=== PATIENT | male | born 1935 | race Caucasian/White ===

== ENCOUNTER 2017-06-06 23:46 | Emergency (ER) | payer MEDICARE ==
[~2017-06-06] VITALS: Ht 160 cm; Wt 93.0 kg
[~2017-06-06 23:46] MED LIST: ALBUTEROL1.25 MG/1 INH; AMLODIPINE10 MG PO; ASPIRIN 81MG TA81 MG PO; BED XX; FUROSEMIDE40 MG PO; IPRATROPIUM 2.2.5 ML INH; ISOPTIN SR180 MG PO; ISOSORBIDE MONO30 MG PO; LASIX 20MG. TAB20 MG PO; LEVAQUIN500 MG PO; LISINOPRIL 20MG20 MG PO; METOPROLOL TAR100 MG PO; NEBULIZER XX; OMNICEF 300 MG300 MG PO; PRAVASTATIN 20M20 MG PO; PREDNISONE 10MG10 MG PO; PREDNISONE 20MG20 MG PO; WARFARIN SOD5 M1 PO; ZITHROMAX Z-PA250 M2 PO
[2017-06-07 00:18] LABS: LYMPH # 1.3 K/mm3 (0.7-4.5); LYMPH % 22.2 % (10-50)
[2017-06-07 00:21] LABS: HEMOGLOBIN 12.1 g/dL (14.1-18.0)
--- NOTE | 2017-06-07 02:40 | Emergency Room Report ---
History of Present Illness Time Seen by MD Sharif9 Presenting Problem in Triage Pt arrived:Wheelchair Presentin.g Problem:PATIENT REPORTS MIDSTERNAL CHEST PAIN. NONRADIATING. HOME HEALTH NURSE TOOK HIM OFF WARFARIN THURSDAY. HE IS SUPPOSED TO F/U THURSDAY. 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 N Clinical Suspician of Infection? N Mental Status: 1 - Regular (Normal Baseline) Sepsis Risk:Low Sepsis Risk Have you (or family members/close friends) recently traveled outside the [place]? N If Yes, where/when: Have you had exposure to infectious disease within the past month? TB? Other? Specify: Comment The patient is brought in by family. They report that he was complaining of pain in the area of his xiphoid this evening. Initially thought it was chest pain, but now he seems to the indicating that it was more in his epigastric area of his abdomen, although now his pain is completely gone. No shortness of breath, fever, vomiting, or diaphoresis. He did complain of back pain, also now completely resolved. He has Alzheimer's dementia. Recently taken off Coumadin because his blood was 210, to be started on Zaroxolyn on Thursday. ALLERGIES Coded Allergies: No Known Allergies (11/20/15) Home Medications Active Scripts Device (Bed, Hospital) 1 UNIT XX UD #1 DEV Prov: 02/10/17 Device (Nebulizer, Compressor) 1 UNIT XX UD #1 DEV Prov: 02/10/17 ALBUTEROL SULFATE (Accuneb) 1.25 MG INH TID #90 NEB Ref 2 Prov: 02/10/17 Ipratropium [place] (Ipratropium 0.5MG Neb Soln) 0.5 MG INH TID #90 NEB Ref 1 Prov: 02/10/17 Levofloxacin (Levaquin 500MG) 500 MG PO DAILY #7 TAB Prov: 04/19/17 Reported Medications Metoprolol Tartrate (Metoprolol 100MG) 100 MG PO BID Amlodipine Besylate (Amlodipine) 10 MG PO DAILY Isosorbide Mononitrate (Isosorbide Mononitrate ER) 30 MG PO DAILY History Medical History General CAD? No Angina: No NV: No Hypertension? Yes Hyperlipidemia? Yes CHF? Yes DVT? No PE? No COPD? No Asthma? No Anemia? No GERD? No Gastric ulcers? No GI Bleed? No Hernia? No Thyroid Problems? No Hypothyroidism? No CVA? Yes Seizures? No Diabetes? No Renal Insuffiency? No End Stage Renal Disease? No UTI? No Stones? No BPH? No GB Disease: No Nephritic Syndrome? No Asplenia? No Hepatitis? No Sickle Cell Disease? No Arthritis? No Migraines? No Cataracts? No Glaucoma? No MRSA? No HIV? No TB? No Anxiety? No Depression? No Cancer? Yes Site: PROSTATE More? Yes Additional hx: ATRIAL FIB, DEMENTIA Immunization Hx DT/Tetanus Unknown Flu Refused Pneumonia Excluded/Contraindicated Surgical Hx Previous Surgery?Y PROSTATECTOMY Family History Family Hx Diabetes No CAD No Hypertension Yes Hyperlipidemia No Cancer Yes TB No Social History Smoking Hx Smoker: Never Smoker Tobacco: No Type Chew Alcohol Alcohol: No Review of Systems All Other Systems Reviewed and Negative Constitutional denies diaphoresis, denies fever Respiratory denies cough, denies shortness of breath Cardiovascular chest pain Gastrointestinal abdominal pain, denies diarrhea, denies nausea, denies vomiting Musculoskeletal back pain Physical Exam Vital Signs Vital Signs Date Time Temp Pulse Resp B/P Pulse O2 O2 Flow FiO2 Ox Delivery Rate 06/07 0337 84 20 103/72 97 / 0217 81 20 112/71 94 / 0057 81 20 137/82 96 /05 2348 97.8 68 20 138/58 96 General Appearance normal appearance, WD/WN Eye Exam - bilateral eye normal exam, bilateral eye PERRL, bilateral eye EOMI Ear, Nose, Throat hearing grossly normal, normal ENT inspection Neck normal inspection, non-tender, supple, full range of motion Respiratory Status Yes: trachea midline, chest symmetrical, non tender chest. No: respiratory distress. Lung Sounds bilateral: normal breath sounds, lungs clear. 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 No Results/Orders Laboratory Tests 06/07/17 0301: Troponin I 0.03 06/06/172358: Amylase 55, Lipase 267 06/06/172358: Sodium 139, Potassium 3.1 L, Chloride 103, Carbon Dioxide 29, BUN 12, Creatinine 1.3, Estimated Creat Clear 59, Estimated GFR (MDRD) 53, Glucose 134 H, Calcium 8.3 L, Total Bilirubin 0.4, AST 18, ALT 16, Alkaline Phosphatase 91, Creatine Kinase 34 L, CK-MB (CK-2) Rel Index 1.5, CK and CKMB Interp 0.5, Troponin I 0.03, Total Protein 7.4, Albumin 2.7 L, Globulin 4.7 H, Albumin/ Globulin Ratio 0.6 L, WBC 6.0, RBC 3.99 L, Hgb 12.1 L, Hct 37.6 L, MCV 94.2, RDW 15.2, Plt Count 244, MPV 7.5, Gran % 63.8, Gran # 3.8, Lymphocytes % 22.2, Monocytes % 7.0, Eosinophils % 6.2, Basophils % 0.8, Lymphocytes # 1.3, Monocytes # 0.4, Eosinophils # 0.4, Basophils # 0.1, PUBS MCHC 32.3, MCH 30.4 Current Medication Orders Sig/Joseph Start time Last Medication Dose Route Stop Time Status Admin Aspirin 0 .STK-MED ONE 06/06 2358 DC .ROUTE Aspirin 324 MG ONCE ONE 06/06 2345 DC 06/06 PO 06/06 2346 2358 Sodium Chloride 10 ML PRN PRN 06/06 2345 AC 06/06 IV 06/07 235 2359 Orders Procedure Date/time Status TROPONIN I 06/07 0253 Complete LIPASE 06/07 025 Complete AMYLASE 06/07 252 Complete CHEST-PORTABLE 06/07 0245 Active ELECTROCARDIOGRAM REQUEST 06/06 2355 Active IV SALINE LOCK 06/06 2355 Active CBC WITH AUTO DIFF 06/06 2355 Complete CARDIAC ENZYMES 08/05 2355 Complete CHEM 12 PROFILE 06/06 235 Complete 12 LEAD EKG-NEGRO (INITIAL) 06/06 UNK Active CM/EKG CM/EKG Comments EKG interpreted by Héctor Hodges MD: Rhythm: Atrial fibrillation, premature ventricular contractions versus aberrantly conducted beats Rate: 74 [place]: LEFT Ectopy: none Conduction: RIGHT bundle branch block ST Segment Changes: none T Wave Changes: none Q Waves: none No evidence of acute ischemia or injury No change from prior electrocardiogram XRAY/CT/US XRAY/CT/US XRAY chest Comment Chest x-ray interpreted by Héctor Hodges M.D. No infiltrate, pneumothorax, pleural effusion, or wide mediastinum. Progress - 3:49 AM: Remains asymptomatic. He is getting belligerent and wants to be discharged, family wants him discharged. Second troponin normal. I feel he can be discharged for outpatient follow-up. Departure Departure Disposition DC Home or Self Care(routine) Clinical Impression Primary Impression: Chest pain Qualifiers: Chest pain type: precordial pain Qualified Code: R07.2 - Precordial pain Secondary Impressions: Epigastric pain Condition STABLE Referrals Negro MARKS,Nestor Rowan (Family) Patient Instructions DI for Abdominal Pain-Adult, DI for Chest Pain Additional Instructions Follow-up with primary care physician for possible gallbladder ultrasound. Additional instructions for ABDOMINAL PAIN/CHEST PAIN: See your physician as soon as possible for further evaluation. Return immediately if worsening abdominal pain, vomiting, shortness of breath, fever, vomiting of blood, chest pain, coughing of blood. or abdominal distention. ED Critical Care Critical Care No at [id number]
[2017-06-07 03:56] VITALS: BP 103/72
--- NOTE | 2017-06-07 12:15 | RADIOLOGY REPORT PS360 ---
CHEST-PORTABLE HISTORY: cpchest pain. Patient Age: 81 years: Male Ordering Physician: Héctor Hodges MD TECHNIQUE: COMPARISON : 04/17/2017 CXR 2 view. FINDINGS Right lung well expanded and clear. Left chest. On the most recent April 17, 2017 chest film there was a prominent was left pleural effusion. This is for the most part cleared with only some minimal residual pleural thickening I believe evident. Likely some minimal pleural parenchymal scarring. No definitive infiltrate or large effusion felt to be present here.. However with given history may want to consider a follow-up 2 view chest or to better evaluate the left lung base. CT chest from February 2016 showed some thickening of the airways particularly towards the left lower lobe. Upper lung willis are mildly hyperexpanded and clear.. Cardiomegaly with isauro and mediastinal structures satisfactory. No CHF. No vascular congestion. Chest wall unremarkable on this portable study IMPRESSION The generous left pleural effusion seen and April 2017 has shown resolution. Only some I suspect minimal pleural-parenchymal scarring at left base but . . Nothing definitely acute. no focal pneumonia
--- OUTSIDE RECORDS SUMMARY | 2017-06-08 15:58 | External Medical Summary Rpt ---
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
--- OUTSIDE RECORDS SUMMARY | 2017-06-08 15:58 | External Medical Summary Rpt ---
Demographics Preferred Language Yi Marital Status Unknown Hinduism Affiliation Unknown Race Unknown Ethnic Group Unknown Author Author , MCKENNA ANDRES Address Unknown Phone [email or web address] Immunization Name Date Rout CVX Reac Dose Comm Prov Is Faci e tion ent ider Refu lity Give sed n Td 03-0 9 999 Hist H149 No H149 (servando 919 [facility] lt), 97 al Info adso rmat rbed ion - Sour ce Unsp ecif ied
--- OUTSIDE RECORDS SUMMARY | 2017-06-08 15:58 | External Medical Summary Rpt ---
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
--- OUTSIDE RECORDS SUMMARY | 2017-06-08 15:58 | External Medical Summary Rpt ---
Demographics Preferred Language Yoruba Marital Status Unknown Taoism Affiliation Unknown Race Unknown Ethnic Group Unknown Author Author , MCKENNA ANDRES Address Unknown Phone [email or web address] Immunization Name Date Rout CVX Reac Dose Comm Prov Is Faci e tion ent ider Refu lity Give sed n Td 03-0 9 999 Hist H149 No H149 (servando 919 [facility] lt), 97 al Info adso rmat rbed ion - Sour ce Unsp ecif ied
== END 2017-06-07 03:56 | disposition home or self-care (01) ==
LOC: ER 23:46
PROVIDERS: Emergency Medicine
DX: R07.2 Precordial pain (principal); R10.13 Epigastric pain; I48.0 Paroxysmal atrial fibrillation; I10 Essential (primary) hypertension

== ENCOUNTER 2017-07-15 12:55 | Emergency (ER) | payer MEDICARE ==
[~2017-07-15] VITALS: Ht 167.6 cm; Wt 99.8 kg
--- NOTE | 2017-07-15 13:40 | Emergency Room Report ---
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 N Clinical Suspician of Infection? N Mental Status: 1 - Regular (Normal Baseline) Sepsis Risk:Low Sepsis Risk Have you (or family members/close friends) recently traveled outside the [place]? N If Yes, where/when: Have you had exposure to infectious disease within the past month? N TB? Other? Specify: Comment The patient arrives by ambulance with several complaints. He fell a couple of weeks ago and scraped his nose. He had a scab there which she picked off this morning at about 11 AM and it began bleeding and he was unable to get it stopped at home. He is on Xarelto. Home health care nurse was present on the scene. Family also states that the home health care nurse was concerned about his lungs. He has a productive cough and his oxygen level was low at home. He is already on antibiotics. They want somebody to listen to his lungs. He also has decreased urinary output. Family states that he has dementia and does not do well in the hospital and would prefer for him to be discharged. Family wants him to have some IV antibiotics while he is here. ALLERGIES Coded Allergies: No Known Allergies (11/20/15) Home Medications Active Scripts Device (Bed, Hospital) 1 UNIT XX UD #1 DEV Prov: 02/10/17 Device (Nebulizer, Compressor) 1 UNIT XX UD #1 DEV Prov: 02/10/17 ALBUTEROL SULFATE (Accuneb) 1.25 MG INH TID #90 NEB Ref 2 Prov: 02/10/17 Ipratropium [place] (Ipratropium 0.5MG Neb Soln) 0.5 MG INH TID #90 NEB Ref 1 Prov: 02/10/17 Levofloxacin (Levaquin 500MG) 500 MG PO DAILY #7 TAB Prov: 04/19/17 Reported Medications Metoprolol Tartrate (Metoprolol 100MG) 100 MG PO BID Amlodipine Besylate (Amlodipine) 10 MG PO DAILY Isosorbide Mononitrate (Isosorbide Mononitrate ER) 30 MG PO DAILY History Medical History General CAD? No Angina: No MT: No Hypertension? Yes Hyperlipidemia? Yes CHF? Yes DVT? No PE? No COPD? No Asthma? No Anemia? No GERD? No Gastric ulcers? No GI Bleed? No Hernia? No Thyroid Problems? No Hypothyroidism? No CVA? Yes Seizures? No Diabetes? No Renal Insuffiency? No End Stage Renal Disease? No UTI? No Stones? No BPH? No GB Disease: No Nephritic Syndrome? No Asplenia? No Hepatitis? No Sickle Cell Disease? No Arthritis? No Migraines? No Cataracts? No Glaucoma? No MRSA? No HIV? No TB? No Anxiety? No Depression? No Cancer? Yes Site: PROSTATE More? Yes Additional hx: ATRIAL FIB, DEMENTIA, ALZHEIMERS Immunization Hx DT/Tetanus Unknown Flu Refused Pneumonia Excluded/Contraindicated Surgical Hx Previous Surgery?Y PROSTATECTOMY Family History Family Hx Diabetes No CAD No Hypertension Yes Hyperlipidemia No Cancer Yes TB No Social History Smoking Hx Smoker: Never Smoker Tobacco: No Alcohol Alcohol: No Review of Systems All Other Systems Reviewed and Negative Constitutional denies fever Respiratory see HPI, cough Genitourinary see HPI. Skin see HPI Physical Exam Vital Signs Vital Signs Date Time Temp Pulse Resp B/P Pulse O2 O2 Flow FiO2 Ox Delivery Rate 07/15 1616 98.4 98 18 132/88 96 07/15 1525 98 18 96 07/15 1419 88 18 128/70 96 2 07/15 1347 88 18 119/69 96 07/15 1256 98.4 87 18 96 2 General Appearance no apparent distress Eye Exam - bilateral eye normal exam, bilateral eye PERRL, bilateral eye EOMI Ear, Nose, Throat 1 cm diameter superficial ulcer on the bridge of his nose with a small pulsatile bleeding vessel on the surface. Neck normal inspection, non-tender, supple, full range of motion Respiratory Status Yes: trachea midline, chest symmetrical, productive cough. No: respiratory distress. Lung Sounds bilateral: normal breath sounds, lungs clear. Cardiovascular normal exam, regular rate/rhythm, no peripheral edema, no gallop, no JVD, no murmur, no rub, normal peripheral pulses Peripheral Pulses Pulses normal Yes Gastrointestinal normal bowel sounds, normal exam, non tender, soft, no organomegaly Extremities non-tender, normal range of motion, normal inspection Neurologic alert, can operator II-XII nml as tested, normal exam, no motor/sensory deficits, dementia Mental status normal mood/affect Skin intact, normal color, warm/dry Medical Decision Making LABS/Meds/Orders Pt receiving controlled substance in ED? No Results/Orders Laboratory Tests 07/15/17 1453: Lactic Acid 1.6 07/15/17 1453: Sodium 143, Potassium 3.3 L, Chloride 104, Carbon Dioxide 31, BUN 14, Creatinine 1.2, Estimated Creat Clear 67, Estimated GFR (MDRD) 58, Glucose 103, Calcium 8.5, Total Bilirubin 0.8, AST 16, ALT 13, Alkaline Phosphatase 109, Creatine Kinase 25 L, CK-MB (CK-2) Rel Index 2.0, CK and CKMB Interp < 0.5, Troponin I 0.06, Total Protein 8.5 H, Albumin 3.4, Globulin 5.1 H, Albumin/ Globulin Ratio 0.7 L, WBC 7.5, RBC 4.84, Hgb 14.6, Hct 45.7, MCV 94.3, RDW 16.0 , Plt Count 282, MPV 8.3, Gran % 62.7, Gran # 4.7, Lymphocytes % 22.9, Monocytes % 8.1, Eosinophils % 5.5, Basophils % 0.7, Lymphocytes # 1.7, Monocytes # 0.6, Eosinophils # 0.4, Basophils # 0.1, PUBS MCHC 31.5 L, MCH 29.8 Current Medication Orders Sig/Joseph Start time Last Medication Dose Route Stop Time Status Admin Levofloxacin/Dextrose 100 ML ONCE ONE 07/15 1545 DCDr 07/15 IV 07/15 1644 1538 Levofloxacin/Dextrose 100 ML .STK-MED ONE 07/15 1538 DC IV Lidocaine/Epinephrine 10 ML ONCE ONE 07/15 1430 DC SC 07/15 1431 Sodium Chloride 10 ML PRN PRN 07/15 1430 DCD IV 07/16 1427 Lidocaine/Epinephrine 0 .STK-MED ONE 07/15 1427 DC .ROUTE Orders Procedure Date/time Status ELECTROCARDIOGRAM REQUEST 07/15 142 Active IV SALINE LOCK 07/15 1428 Active CULTURE, SPUTUM 07/15 1428 Complete CULTURE, BLOOD 07/15 1428 Active URINALYSIS/COMPLETE 07/15 1428 Active LACTIC ACID 07/15 1428 Complete CBC WITH AUTO DIFF 07/15 1428 Complete CARDIAC ENZYMES 07/15 1428 Complete CHEM 12 PROFILE 07/15 1428 Complete 12 LEAD EKG-ELIZABETH (INITIAL) 07/15 UNK Active XRAY/CT/US XRAY/CT/US XRAY chest Comment X-ray interpreted by Lyndsay Yu M.D.: chronic RIGHT basilar scar versus atelectasis. Minimal LEFT basilar airspace disease, likely atelectasis. Procedures Laceration/Wound Repair Progress Skin suture for hemostasis Performed by: LYNDSAY YU Consent: Verbal consent obtained. Risks and benefits: risks, benefits and alternatives were discussed Consent given by: patient Patient identity confirmed: verbally with patient Local anesthetic: 1 percent lidocaine with epinephrine Wound prep: Sterilly scrubbed with Hibiclens and irrigated with copious normal saline. Draping: Sterile in usual manner Suture material, skin: 5-0 Vicryl Number of sutures: 1. A single [id number] suture placed to obtain hemostasis from the small bleeding blood vessel. Hemostasis obtained after placement. Patient tolerance: Patient tolerated the procedure well with no immediate complications Departure Departure Disposition DC Home or Self Care(routine) Clinical Impression Primary Impression: Hemorrhage of skin lesion Secondary Impressions: Acute bronchitis Qualifiers: Bronchitis organism: unspecified organism Qualified Code: J20.9 - Acute bronchitis, unspecified Condition STABLE Patient Instructions DI for Acute Bronchitis Additional Instructions Suture will dissolve on its own. Return to the emergency room if excessive bleeding occurs again. Complete sure antibiotics as prescribed by Dr. Tom and follow-up with him next week. ED Critical Care Critical Care No at [id number]
[2017-07-15 15:09] LABS: LYMPH # 1.7 K/mm3 (0.7-4.5); LYMPH % 22.9 % (10-50)
[2017-07-15 15:19] LABS: HEMOGLOBIN 14.6 g/dL (14.1-18.0)
[2017-07-15 15:32] LABS: BUN 14 mg/dL (7-18); GFR (ESTIMATED) 58 ML/MIN (>60)
--- NOTE | 2017-07-15 15:34 | RADIOLOGY REPORT PS360 ---
CHEST-PORTABLE HISTORY: cough ORDERING PHYSICIAN: Héctor Hodges MD PATIENT AGE: 82 years COMPARISON: 06/07/2017 FINDINGS: There is borderline cardiomegaly without failure. Chronic changes are present in the left lower lobe. The remaining lungs are clear. No acute bony anomalies. Osteoarthritic changes are present at the AC joints. IMPRESSION: Chronic change, no acute finding
[2017-07-15 16:16] VITALS: BP 132/88
== END 2017-07-15 16:17 | disposition home or self-care (01) ==
LOC: ER 12:55
PROVIDERS: Emergency Medicine
PROC: 09QKXZZ Repair Nasal Mucosa and Soft Tissue, External Approach (ICD-10-PCS; principal; 2017-07-15)
DX: R58 Hemorrhage, not elsewhere classified (principal); J20.9 Acute bronchitis, unspecified; I11.0 Hypertensive heart disease with heart failure; I50.9 Heart failure, unspecified; I48.91 Unspecified atrial fibrillation; G30.9 Alzheimer's disease, unspecified; F02.80 Dementia in other diseases classified elsewhere, unspecified severity, without behavioral disturbance, psychotic disturbance, mood disturbance, and anxiety; L98.499 Non-pressure chronic ulcer of skin of other sites with unspecified severity; Z91.81 History of falling; Z79.01 Long term (current) use of anticoagulants; Z79.899 Other long term (current) drug therapy

== ENCOUNTER 2017-09-02 23:39 | Inpatient (IN) | payer MEDICARE ==
[~2017-09-02] VITALS: Ht 167.6 cm; Wt 77.2 kg
[2017-09-02 23:45] VITALS: BP 126/82
[2017-09-02] MEDS ORDERED: FUROSEMIDE40 MG PO (23:56)
[2017-09-02] MEDS ORDERED: PRAVASTATIN 20M20 MG PO (23:57)
[2017-09-02] MEDS ORDERED: XARELTO15 MG PO (23:57)
[2017-09-02] MEDS ORDERED: MELATONIN1 M2 SL (23:58)
[2017-09-03] VITALS (8 sets, daily range): BP systolic 122–160; BP diastolic 63–87
--- OUTSIDE RECORDS SUMMARY | 2017-09-03 00:05 | External Medical Summary Rpt | Continuity of Care Document ---
Author Author Organization Address Unknown Phone Unavailable Care Team Providers Care Memory Care Program Director Name Role Phone , Unavailable Unavailable EMS Current Medications Section EMS Allergies and Adverse Reactions EMS Past Medical History Medications Administered Section EMS Procedures Performed EMS Vital Signs EMS Patient Care Report Narrative Dispatched to residence for 82 year male that has picked a scab and will not stop bleeding, pt is on blood thinners, home health has been on scene and been holding pressure for about 30 minutes and wont stop bleeding. Upon arrival pt was sitting on stool in kitchen, nurse was holding 4x4 with pressure on his nose, when switching 4x4 Pt appeared to have scratched off scab and dug his fingernail into his nose making it deeper, bleeding had not slowed, pt has a severe case of dementia, pt also has been on antibiotics since last Thursday for bilateral rhonchi and cough, today his sats were at 88% pt appears to be getting worse possible pneumonia,pt was able to walk to stretcher with assistance , nurse kept pressure applied. Pt was secured to stretcher with straps,moved to EC unit, vitals obtained and placed on monitor while medic held pressure, pt vitals were all normal sats were at 87%, pt was placed on NC, then EMT took over and held pressure while Assembler Leather Goods did ALS assessment, pt gets easily agitated with his dementia, was able to get his jacket off, 20g IV established in LAC with NS, blood sugat 126. Pt was getting agitated did not want 4x4 held to his nose, kept trying to push Assembler [employer]ather [employer]s away, threatening to hit her if she didnt stop, unable to do full assessment, pt would not cooperate, wanted to fight you with anything you tried. Pt was monitored and reassessed, pressure remained on pts nose, changing multiple 4x4s, bleeding has not slowed, pt was combative enroute did not want 4x4 on his nose, pressure was continued, kept continuing to calm pt, no change in vitals , sats came up to 96%,pt report was called to ER, upon arrival at ER staff waited outside to assist with pt , pt was moved into ER , taken to bed 2, pt was moved with bottom sheet to bed,care turned over and report was given to Payam Sim RN. Kaye Shields CCEMT-P
--- OUTSIDE RECORDS SUMMARY | 2017-09-03 00:05 | External Medical Summary Rpt | Continuity of Care Document ---
Author Author Organization Address Unknown Phone Unavailable Care Team Providers Care First Leveler Name Role Phone , Unavailable Unavailable EMS [...] EMT took over and held pressure while Solid Plasterer did ALS assessment, pt gets easily agitated with his dementia, was able to get his jacket off, 20g IV established in LAC with NS, blood sugat 126. Pt was getting agitated did not want 4x4 held to his nose, kept trying to push Solid Plasterer away, threatening to hit her if she [...]
--- OUTSIDE RECORDS SUMMARY | 2017-09-03 00:06 | External Medical Summary Rpt | Continuity of Care Document ---
Author Author Organization Address Unknown Phone Unavailable Care Team Providers Care Bomb Loader Name Role Phone , Unavailable Unavailable EMS Current Medications Section EMS Allergies and Adverse Reactions EMS Past Medical History Medications Administered Section EMS Procedures Performed EMS Vital Signs EMS Patient Care Report Narrative D: EC-[address] [place] [address] Rd per mutual aid request from [facility] EMS for a 82 year old male unresponsive and barely breathing. C: Unresponsive. H: Dementia, Prostate Cancer, Bronchitis, A-Fib. A: Pt presented sitting in a chair being assessed by [facility] and Medic 1. Pt is responsive to verbal stimuli and is confused when speaking. ABC assessed: Airway is patent. Breathing: Adequate rate and depth, quality being supported by Portable O2 at 4-lpm via NC. Circulation: Pulse is regular, skin is pale cool and diaphoretic. Physical assessment: Pt unable to talk in coherent sentences, unable to obtain stroke scale, pupils are equal and reactive, lung sounds reveal wheezing in all willis (Pt recently diagnosed with bronchitis and taking antibiotics), general weakness to entire body and unable to stand. Unable to obtain pain scale. Family stated that they found the pt slumped backwards in the chair barely breathing and call 911. R: 12-lead EKG, 18g IV x2, LR fluid bolus, O2 therapy. T: Pt picked up out of chair x3, placed on cot in position of comfort, secured by safety belts x5 and placed into the ambulance. 12-lead EKG shows A-Fib with RVR, 18g IV established in left AC with LR fluid bolus administered. Pt transported and monitored. NC switched for CO2 NC for monitoring, pt's dropped and 2nd 18g IV established in the right forearm. Reassessment: Once pt's BP became 105 systolic the pt became alert and oriented (still slightly confused do to dementia), skin returned to being pink, warm, and dry. Pt was able to speak and answer questions appropriately within the limits of his dementia. Pt moved from cot to CT Scan table (Per ER doctor request as a precaution). Verbal report and pt care given to attending RN and Doctor. N: Pt transported by ambulance after becoming unresponsive while sitting in a chair.
--- OUTSIDE RECORDS SUMMARY | 2017-09-03 00:06 | External Medical Summary Rpt | Continuity of Care Document ---
Author Author Organization Address Unknown Phone Unavailable Care Team Providers Care Seo Analyst Name Role Phone , Unavailable Unavailable EMS Current Medications Section EMS Allergies and Adverse Reactions EMS Past Medical History Medications Administered Section EMS Procedures Performed EMS Vital Signs EMS Patient Care Report Narrative D: EC-5 dispatched to [address] [place] [address] Rd per mutual aid request from [facility] EMS for a 82 year old male [...]
--- OUTSIDE RECORDS SUMMARY | 2017-09-03 00:06 | External Medical Summary Rpt | Continuity of Care Document ---
Author Author Organization Address Unknown Phone Unavailable Care Team Providers Care Environmental Inspector Name Role Phone , Unavailable Unavailable EMS Current Medications Section EMS Allergies and Adverse Reactions EMS Past Medical History Medications Administered Section EMS Procedures Performed EMS Vital Signs EMS Patient Care Report Narrative D: EC-5 dispatched to [address] [place] [address] Rd per mutual aid request from [facility] EMS for a 82 year old [...]
--- OUTSIDE RECORDS SUMMARY | 2017-09-03 00:06 | External Medical Summary Rpt | Continuity of Care Document ---
Author Author Organization Address Unknown Phone Unavailable Care Team Providers Care Hourly Associate Name Role Phone , Unavailable Unavailable EMS Current Medications Section EMS Allergies and Adverse Reactions EMS Past Medical History Medications Administered Section EMS Procedures Performed EMS Vital Signs EMS Patient Care Report Narrative D: EC-5 dispatched to [address] [place] [address] Rd per mutual aid request from [facility] EMS for a 82 year old [...]
--- OUTSIDE RECORDS SUMMARY | 2017-09-03 00:06 | External Medical Summary Rpt | Continuity of Care Document ---
Author Author Organization Address Unknown Phone Unavailable Care Team Providers Care Grease Rack Worker Name Role Phone , Unavailable Unavailable EMS Current Medications Section EMS Allergies and Adverse Reactions EMS Past Medical History Medications Administered Section EMS Procedures Performed EMS Vital Signs EMS Patient Care Report Narrative D: EC-5 dispatched to [address] [place] [address] Rd per mutual aid request from [facility] EMS for a 82 year old male [...]
--- OUTSIDE RECORDS SUMMARY | 2017-09-03 00:06 | External Medical Summary Rpt | Continuity of Care Document ---
Author Author Organization Address Unknown Phone Unavailable Care Team Providers Care Billing Analyst Name Role Phone , Unavailable Unavailable EMS Current Medications Section EMS Allergies and Adverse Reactions EMS Past Medical History Medications Administered Section EMS Procedures Performed EMS Vital Signs EMS Patient Care Report Narrative D: EC-5 dispatched to [address] [place] [address] Rd per mutual aid request from [facility] EMS for a 82 year [...]
--- OUTSIDE RECORDS SUMMARY | 2017-09-03 00:06 | External Medical Summary Rpt | Continuity of Care Document ---
Author Author Organization Address Unknown Phone Unavailable Care Team Providers Care Barrel Rifler Hook Name Role Phone , Unavailable Unavailable EMS Current Medications Section EMS Allergies and Adverse Reactions EMS Past Medical History Medications Administered Section EMS Procedures Performed EMS Vital Signs EMS Patient Care Report Narrative D: EC-5 dispatched to [address] [place] [address] Rd per mutual aid request from [facility] EMS for a 82 year old [...]
--- OUTSIDE RECORDS SUMMARY | 2017-09-03 00:06 | External Medical Summary Rpt | Continuity of Care Document ---
Author Author Organization Address Unknown Phone Unavailable Care Team Providers Care Work Force Advisor Name Role Phone , Unavailable Unavailable EMS Current Medications Section EMS Allergies and Adverse Reactions EMS Past Medical History Medications Administered Section EMS Procedures Performed EMS Vital Signs EMS Patient Care Report Narrative D: EC-5 dispatched to [address] [place] [address] Rd per mutual aid request from [facility] EMS for a 82 year old male [...]
--- OUTSIDE RECORDS SUMMARY | 2017-09-03 00:07 | External Medical Summary Rpt | Continuity of Care Document ---
Author Author Organization Address Unknown Phone Unavailable Care Team Providers Care Spudder Name Role Phone , Unavailable Unavailable EMS Current Medications Section EMS Allergies and Adverse Reactions EMS Past Medical History Medications Administered Section EMS Procedures Performed EMS Vital Signs EMS Patient Care Report Narrative D: EC-5 dispatched to [address] [place] [address] Rd per mutual aid request from [facility] EMS for a 82 year [...]
--- OUTSIDE RECORDS SUMMARY | 2017-09-03 00:07 | External Medical Summary Rpt | Continuity of Care Document ---
Author Author Organization Address Unknown Phone Unavailable Care Team Providers Care Production Lead Name Role Phone , Unavailable Unavailable EMS Current Medications Section EMS Allergies and Adverse Reactions EMS Past Medical History Medications Administered Section EMS Procedures Performed EMS Vital Signs EMS Patient Care Report Narrative 911 call district 3 for code 500. Ec-1 responded due to the call actually being in District 1. Medic 1 along with [facility] fire responded and found pt in passenger seat of car, Family had been in route to meet ems and he flagged us down on [address], Family tells ems that pt was drinking coffee and stood up from the table and appeared to have stopped breathing. Family did mouth to mouth and attempted chest compressions and pt regained alertness quickly .Pt was able to place himself on to ems cot and safety straps were applied. Pt had no c/c with ems. He has prior HX of A-fib,Dementia,Alzheimers, Stroke. Pt had been seen a few weeks ago at for pneumonia and has not been able to fully recover from recurring pneumonia issues. Pt had audible wheezing, and rhonchi in upper lobes. He was placed on 4lpm via n/c and end tidal was 33-35. Albuterol neb was given in route with pt trying to have a productive cough. Est 20g saline lock in rt ac. Bgl was 155. 12 lead showed A-fib. Cont to monitor in route with no changes noted. Pt was transported emergent due to getting restless and upset and sometimes becoming verbally abusive to ems. Upon arrival at er pt was able to move himself over to ems cot. TRANSPORTED THIS PT DUE TO CHRONIC ILLNESS OF PNUEMONIA AND HAVING DYSPNEA THIS DATE
--- OUTSIDE RECORDS SUMMARY | 2017-09-03 00:07 | External Medical Summary Rpt | Continuity of Care Document ---
Author Author Organization Address Unknown Phone Unavailable Care Team Providers Care Cosmetology Educator Name Role Phone , Unavailable Unavailable EMS Current Medications Section EMS Allergies and Adverse Reactions EMS Past Medical History Medications Administered Section EMS Procedures Performed EMS Vital Signs EMS Patient Care Report Narrative 911 call district 3 for code 500. Ec-1 responded due to the call actually being in District 1. Medic 1 along with [facility] fire responded and found pt in passenger [...]
--- OUTSIDE RECORDS SUMMARY | 2017-09-03 00:07 | External Medical Summary Rpt | Continuity of Care Document ---
Author Author Organization Address Unknown Phone Unavailable Care Team Providers Care Surgical Scrub Technician Name Role Phone , Unavailable Unavailable EMS Current Medications Section EMS Allergies and Adverse Reactions EMS Past Medical History Medications Administered Section EMS Procedures Performed EMS Vital Signs EMS Patient Care Report Narrative 911 call district 3 for code 500. Ec-1 responded due to the call actually being in District 1. Medic 1 along with [facility] fire responded and found pt in passenger seat of car, Family had been in route to meet ems and he flagged us down on [address], Family tells ems that pt was [...]
--- OUTSIDE RECORDS SUMMARY | 2017-09-03 00:07 | External Medical Summary Rpt | Continuity of Care Document ---
Author Author Organization Address Unknown Phone Unavailable Care Team Providers Care Limehouse Worker Name Role Phone , Unavailable Unavailable EMS Current Medications Section EMS Allergies and Adverse Reactions EMS Past Medical History Medications Administered Section EMS Procedures Performed EMS Vital Signs EMS Patient Care Report Narrative 911 call district 3 for code 500. Ec-1 responded due to the call actually being in District 1. Medic 1 along with [facility] fire responded and found pt in passenger [...]
--- OUTSIDE RECORDS SUMMARY | 2017-09-03 00:07 | External Medical Summary Rpt | Continuity of Care Document ---
Author Author Organization Address Unknown Phone Unavailable Care Team Providers Care Communications Engineering Technician Name Role Phone , Unavailable Unavailable EMS Current Medications Section EMS Allergies and Adverse Reactions EMS Past Medical History Medications Administered Section EMS Procedures Performed EMS Vital Signs EMS Patient Care Report Narrative D: EC-5 dispatched to [address] [place] [address] Rd per mutual aid request from [facility] EMS for a 82 year old male [...]
--- OUTSIDE RECORDS SUMMARY | 2017-09-03 00:08 | External Medical Summary Rpt | Continuity of Care Document ---
Author Author Organization Address Unknown Phone Unavailable Care Team Providers Care Dairy Bar Manager Name Role Phone , Unavailable Unavailable EMS Current Medications Section EMS Allergies and Adverse Reactions EMS Past Medical History Medications Administered Section EMS Procedures Performed EMS Vital Signs EMS Patient Care Report Narrative 911 call district 3 for code 500. Ec-1 responded due to the call actually being in District 1. Medic 1 along with [facility] fire responded and found pt in passenger [...]
--- OUTSIDE RECORDS SUMMARY | 2017-09-03 00:08 | External Medical Summary Rpt | Continuity of Care Document ---
Author Author Organization Address Unknown Phone Unavailable Care Team Providers Care Addiction Social Worker Name Role Phone , Unavailable Unavailable EMS Current Medications Section EMS Allergies and Adverse Reactions EMS Past Medical History Medications Administered Section EMS Procedures Performed EMS Vital Signs EMS Patient Care Report Narrative 911 call district 3 for code 500. Ec-1 responded due to the call actually being in District 1. Medic 1 along with [facility] fire responded and found pt in passenger [...]
--- OUTSIDE RECORDS SUMMARY | 2017-09-03 00:08 | External Medical Summary Rpt | Continuity of Care Document ---
Author Author Organization Address Unknown Phone Unavailable Care Team Providers Care Drill Sharpener Operator Name Role Phone , Unavailable Unavailable EMS Current Medications Section EMS Allergies and Adverse Reactions EMS Past Medical History Medications Administered Section EMS Procedures Performed EMS Vital Signs EMS Patient Care Report Narrative 911 call district 3 for code 500. Ec-1 responded due to the call actually being in District 1. Medic 1 along with [facility] fire responded and found pt in passenger [...]
--- OUTSIDE RECORDS SUMMARY | 2017-09-03 00:08 | External Medical Summary Rpt | Continuity of Care Document ---
Author Author Organization Address Unknown Phone Unavailable Care Team Providers Care School Fundraising Director Name Role Phone , Unavailable Unavailable EMS Current Medications Section EMS Allergies and Adverse Reactions EMS Past Medical History Medications Administered Section EMS Procedures Performed EMS Vital Signs EMS Patient Care Report Narrative 911 call district 3 for code 500. Ec-1 responded due to the call actually being in District 1. Medic 1 along with [facility] fire responded and found pt [...]
[2017-09-03 00:10] LABS: LYMPH # 0.9 K/mm3 (0.7-4.5); LYMPH % 8.4 % (10-50)
--- OUTSIDE RECORDS SUMMARY | 2017-09-03 00:11 | External Medical Summary Rpt | CCD ---
Author Author , MCKENNA ANDRES Address Unknown Phone [email or web address] Purpose Continuity of Care Document - 04-17-2017 through 2016 Problems Code Diagnosis DOS Provider Status 401.9 E86.0 DEHYDRATION I48.91 UNSPECIFIED ATRIAL FIBRILLATIO N J18.9 PNEUMONIA, UNSPECIFIED ORGANISM J20.9 ACUTE BRONCHITIS, UNSPECIFIED R06.00 DYSPNEA, UNSPECIFIED R06.02 SHORTNESS OF BREATH R07.9 CHEST PAIN, UNSPECIFIED R10.13 EPIGASTRIC PAIN R23.3 SPONTANEOUS ECCHYMOSES R42 DIZZINESS AND GIDDINESS R55 SYNCOPE AND COLLAPSE R79.1 ABNORMAL COAGULATION PROFILE S00.83XA CONTUSION OF OTHER PART OF HEAD, INITIAL ENCOUNTER Z79.899 OTHER SENIOR CARE (CURRENT) DRUG THERAPY Results Labs Lab Lab Date Result Refere Interp Status Commen Order Detail nces retati t Range on Basic metabolic panel (08-26-2017 07:45) Serum 10-25-2 = 140 136-145 complet sodium 017 mmoL/L ed measure 07:45 ment Serum 10-25-2 = 2.7 3.5-5.1 complet potassi 017 mmoL/L ed um 07:45 measure ment Serum 10-25-2 = 100 74-106 complet or 017 mg/dL ed plasma 07:45 glucose measure ment (mas Estimat 10-25-2 = 53 >60 complet ed 017 ML/MIN ed glomeru 07:45 lar filtrat ion rate (GF Serum 10-25-2 = 1.3 0.70-1. complet or 017 mg/dL 30 ed plasma 07:45 creatin ine measure ment ( Carbon 10-25-2 = 35 21.0-32 complet dioxide 017 mmoL/L .0 ed 07:45 measure ment Serum 10-25-2 = 102 98-107 complet or 017 mmoL/L ed plasma 07:45 chlorid e measure ment (mo Serum 10-25-2 = 8.2 8.5-10. complet or 017 mg/dL 1 ed plasma 07:45 calcium measure ment (mas Serum = 24 7-18 complet or 017 mg/dL ed plasma 07:45 urea nitroge n measure men CBC w auto diff (08-26-2017 07:45) Red 08-26- = 4.42 4.6-6.2 complet blood 017 M/mm3 ed cell 07:45 count Blood = 149 142-424 complet platele 017 K/mm3 ed t count 07:45 Automat = 9.5 7.4-10. complet ed 017 fl 4 ed blood 07:45 platele t mean volume serenity Collin % = 8.9 % 1.7-9.3 complet 017 ed 07:45 Absolut = 0.7 0.1-1.0 complet e 017 K/mm3 ed monocyt 07:45 e count Blood = 7.3 4.8-10. complet leukocy 017 K/MM3 8 ed rosalia 07:45 count (number /volume ) Automat = 14.9 11.5-17 complet ed 017 % .5 ed erythro 07:45 cyte distrib ution width Automat = 93.3 82.2-97 complet ed 017 fl .8 ed erythro 07:45 cyte mean corpusc ular v Automat = 32.3 31.8-35 complet ed 017 g/dl .4 ed erythro 07:45 cyte mean corpusc ular h Mean = 30.1 27-31.2 complet corpusc 017 pg ed ular 07:45 hemoglo bin (MCH) determ Lymphoc = 10.1 10-50 complet yte 017 % ed count, 07:45 blood, automat ed Absolut = 0.7 0.7-4.5 complet e 017 K/mm3 ed lymphoc 07:45 yte count Blood = 13.3 14.1-18 complet hemoglo 017 g/dL .0 ed bin 07:45 measure ment (mass/v olum Blood = 41.3 42.0-52 complet hematoc 017 % .0 ed rit 07:45 (volume fractio n) Granulo = 72.5 37.0-80 complet cyte 017 % .0 ed percent 07:45 age Blood = 5.3 1.3-8.0 complet granulo 017 K/mm3 ed cytes 07:45 automat ed count (numb Automat = 7.9 % 0.1-12. complet ed 017 0 ed blood 07:45 eosinop hils/10 0 leukocy t Automat = 0.6 0.0-0.4 complet ed 017 K/mm3 ed blood 07:45 eosinop hil count Baso % = 0.5 % 0.1-2.0 complet 017 ed 07:45 Automat = 0.0 0-0.2 complet ed 017 K/MM3 ed blood 07:45 basophi l count (count/ vo Comp Metab 1997 Pnl SerPl (08-19-2017 04:19) Anion 8.0 3.0-11. complet Gap3 017 mmol/L 0 ed SerPl-s 04:19 Cnc BUN/Cre 10.0 7.0-25. complet at 017 0 ed SerPl 04:19 Albumin 1.0 1.5-2.5 complet /Glob 017 g/dL ed SerPl 04:19 Globuli 3.8 complet n Ur 017 gm/dL ed Elph-mC 04:19 nc GFR/BSA 81 >60 complet .pred 017 mL/min/ ed SerPl 04:19 1.73 MDRD-Ar VRat Bilirub 0.6 0.3-1.2 complet 017 mg/dL ed SerPl-m 04:19 Cnc ALP 08-19- 80 U/L 25-100 complet SerPl-c 017 ed Cnc 04:19 AST 08-19- 21 U/L 0-33 complet SerPl-c 017 ed Cnc 04:19 ALT 08-19- 15 U/L 7-40 complet SerPl w 017 ed 04:19 P-5'-P- cCnc Albumin 3.70 3.20-4. complet 017 g/dL 80 ed SerPl-m 04:19 Cnc Prot 10-18-2 7.5 5.7-8.2 complet SerPl-m 017 g/dL ed Cnc 04:19 Calcium 10-18-2 8.8 8.7-10. complet 017 mg/dL 4 ed XXX-sCn 04:19 c CO2 18-2 28.0 20.0-31 complet SerPl-s 017 mmol/L .0 ed Cnc 04:19 Chlorid 1018-2 105 99-109 complet e 017 mmol/L ed SerPl-s 04:19 Cnc Potassi 18-2 3.6 3.5-5.5 complet um 017 mmol/L ed Bld-sCn 04:19 c Sodium 1018-2 141 132-146 complet Bld-sCn 017 mmol/L ed c 04:19 Creat -18-2 0.90 0.60-1. complet Bld-mCn 017 mg/dL 30 ed c 04:19 BUN 18-2 9 mg/dL 9-23 complet Bld-mCn 017 ed c 04:19 Glucose 18-2 179 70-100 complet 017 mg/dL ed Bld-mCn 04:19 c CBC W Diff pnl,unspecified Bld (08-19-2017 04:19) Lymphoc 18-2 9.9 % 24.0-44 complet ytes/le 017 .0 ed NFr 04:19 Bld Auto Neutrop 08-19-2 88.9 % 41.0-71 complet hils/le 017 .0 ed NFr 04:19 Bld Auto Platele 08-19-2 195 150-450 complet t # Bld 017 10*3/mm ed Auto 04:19 3 PMV Bld 18-2 11.4 fL 6.0-12. complet Auto 017 0 ed 04:19 RDW RBC 18-2 53.2 fl 37.0-54 complet Auto 017 .0 ed 04:19 RDW RBC 18-2 15.4 % 11.3-14 complet 017 .5 ed Auto-Rt 04:19 o MCHC 18-2 31.6 32.0-36 complet RBC 017 g/dL .0 ed Auto-mC 04:19 nc MCH RBC 18-2 29.9 pg 27.0-31 complet Qn 017 .0 ed Auto 04:19 MCV RBC 10-18-2 94.7 fL 80.0-99 complet Auto 017 .0 ed 04:19 Hct VFr 10-18-2 43.1 % 38.9-50 complet Bld 017 .9 ed Auto 04:19 Hgb 10-18-2 13.6 13.1-17 complet Bld-mCn 017 g/dL .5 ed c 04:19 RBC # 10-18-2 4.55 4.20-5. complet Bld 017 10*6/mm 76 ed Auto 04:19 3 WBC 10-18-2 3.43 3.50-10 complet nRBC 017 10*3/mm .80 ed cor # 04:19 3 Bld Imm 10-18-2 0.01 0.00-0. complet Granulo 017 10*3/mm 03 ed cytes # 04:19 3 Bld Basophi 10-18-2 0.00 0.00-0. complet ls # 017 10*3/mm 20 ed Bld 04:19 3 Auto Eosinop 10-18-2 0.00 0.00-0. complet hil # 017 10*3/mm 30 ed Bld 04:19 3 Auto Monocyt 10-18-2 0.03 0.00-1. complet es # 017 10*3/mm 00 ed Bld 04:19 3 Auto Lymphoc 10-18-2 0.34 0.60-4. complet ytes # 017 10*3/mm 80 ed Bld 04:19 3 Auto Neutrop 10-18-2 3.05 1.50-8. complet hils # 017 10*3/mm 30 ed Bld 04:19 3 Auto Imm 10-18-2 0.3 % 0.0-0.6 complet Granulo 017 ed cytes/l 04:19 euk NFr Bld Basophi 10-18-2 0.0 % 0.0-1.0 complet ls/leuk 017 ed NFr 04:19 Bld Auto Eosinop 10-18-2 0.0 % 0.0-3.0 complet hil/luke 017 ed k NFr 04:19 Bld Auto Monocyt 10-18-2 0.9 % 0.0-12. complet es/leuk 017 0 ed NFr 04:19 Bld Auto Mg Ionized SerPl-mCnc (08-18-2017 14:25) Magnesi 1.9 1.3-2.7 complet um 017 mg/dL ed SerPl-m 14:25 Cnc Troponin T SerPl Ql (08-18-2017 12:28) Troponi 0.04 0.00-0. complet n I 017 ng/mL 07 ed SerPl-m 12:28 Cnc Troponin T SerPl Ql (08-18-2017 10:18) Troponi 0.05 0.00-0. complet n I 017 ng/mL 07 ed SerPl-m 10:18 Cnc BNP SerPl-mCnc (08-18-2017 10:17) BNP 269.0 0.0-100 complet SerPl-m 017 pg/mL .0 ed Cnc 10:17 Comp Metab 1998 Pnl SerPl (08-18-2017 10:17) Albumin 1.0 1.5-2.5 complet /Glob 017 g/dL ed SerPl 10:17 Anion 11.0 3.0-11. complet Gap3 017 mmol/L 0 ed SerPl-s 10:17 Cnc BUN/Cre 12.0 7.0-25. complet at 017 0 ed SerPl 10:17 Globuli 4.2 complet n Ur 017 gm/dL ed Elph-mC 10:17 nc GFR/BSA 72 >60 complet .pred 017 mL/min/ ed SerPl 10:17 1.73 MDRD-Ar VRat Bilirub 0.7 0.3-1.2 complet 017 mg/dL ed SerPl-m 10:17 Cnc ALP 96 U/L 25-100 complet SerPl-c 017 ed Cnc 10:17 AST 27 U/L 0-33 complet SerPl-c 017 ed Cnc 10:17 ALT 14 U/L 7-40 complet SerPl w 017 ed 10:17 P-5'-P- cCnc Albumin 4.20 3.20-4. complet 017 g/dL 80 ed SerPl-m 10:17 Cnc Prot 8.4 5.7-8.2 complet SerPl-m 017 g/dL ed Cnc 10:17 Calcium 9.4 8.7-10. complet 017 mg/dL 4 ed XXX-sCn 10:17 c CO2 33.0 20.0-31 complet SerPl-s 017 mmol/L .0 ed Cnc 10:17 Chlorid 99 99-109 complet e 017 mmol/L ed SerPl-s 10:17 Cnc Potassi 3.2 3.5-5.5 complet um 017 mmol/L ed Bld-sCn 10:17 c Sodium 143 132-146 complet Bld-sCn 017 mmol/L ed c 10:17 Creat 1.00 0.60-1. complet Bld-mCn 017 mg/dL 30 ed c 10:17 BUN 12 9-23 complet Bld-mCn 017 mg/dL ed c 10:17 Glucose 107 70-100 complet 017 mg/dL ed Bld-mCn 10:17 c Lactate SerPl-sCnc (08-18-2017 10:17) D-Lacta 1.6 0.5-2.0 complet te 017 mmol/L ed SerPl-s 10:17 Cnc CBC W Diff pnl,unspecified Bld (08-18-2017 10:17) Imm 08-18- 0.01 0.00-0. complet Granulo 017 10*3/mm 03 ed cytes # 10:17 3 Bld Basophi 2 0.04 0.00-0. complet ls # 017 10*3/mm 20 ed Bld 10:17 3 Auto Eosinop 0.45 0.00-0. complet hil # 017 10*3/mm 30 ed Bld 10:17 3 Auto Monocyt 08-18-2 0.46 0.00-1. complet es # 017 10*3/mm 00 ed Bld 10:17 3 Auto Lymphoc 0.91 0.60-4. complet ytes # 017 10*3/mm 80 ed Bld 10:17 3 Auto Neutrop 08-18-2 4.90 1.50-8. complet hils # 017 10*3/mm 30 ed Bld 10:17 3 Auto Imm 08-18- 0.1 % 0.0-0.6 complet Granulo 017 ed cytes/l 10:17 euk NFr Bld Eosinop 08-18- 6.6 % 0.0-3.0 complet hil/luke 017 ed k NFr 10:17 Bld Auto Monocyt 6.8 % 0.0-12. complet es/leuk 017 0 ed NFr 10:17 Bld Auto Lymphoc 13.4 % 24.0-44 complet ytes/le 017 .0 ed uk NFr 10:17 Bld Auto Neutrop 72.5 % 41.0-71 complet hils/le 017 .0 ed uk NFr 10:17 Bld Auto Platele 202 150-450 complet t # Bld 017 10*3/mm ed Auto 10:17 3 PMV Bld 11.2 fL 6.0-12. complet Auto 017 0 ed 10:17 RDW RBC 54.2 fl 37.0-54 complet Auto 017 .0 ed 10:17 RDW RBC 08-18- 15.4 % 11.3-14 complet 017 .5 ed Auto-Rt 10:17 o MCHC 08-18- 32.5 32.0-36 complet RBC 017 g/dL .0 ed Auto-mC 10:17 nc MCH RBC 08-18- 31.0 pg 27.0-31 complet Qn 017 .0 ed Auto 10:17 MCV RBC 08-18-2 95.5 fL 80.0-99 complet Auto 017 .0 ed 10:17 Hct VFr 08-18-2 49.3 % 38.9-50 complet Bld 017 .9 ed Auto 10:17 Hgb 08-18-2 16.0 13.1-17 complet Bld-mCn 017 g/dL .5 ed c 10:17 RBC # 1017-2 5.16 4.20-5. complet Bld 017 10*6/mm 76 ed Auto 10:17 3 WBC 08-18-2 6.77 3.50-10 complet nRBC 017 10*3/mm .80 ed cor # 10:17 3 Bld Basophi 0.6 % 0.0-1.0 complet ls/leuk 017 ed NFr 10:17 Bld Auto CK SerPl-cCnc (08-18-2017 10:17) CK 64 U/L 26-174 complet SerPl-c 017 ed Cnc 10:17 Potassium SerPl-sCnc (07-21-2017 18:47) Potassi 3.7 3.5-5.5 complet um 017 mmol/L ed Bld-sCn 18:47 c Bas Metab 2000 Pnl SerPl (07-21-2017 05:26) Anion 7.0 3.0-11. complet Gap3 017 mmol/L 0 ed SerPl-s 05:26 Cnc BUN/Cre 10.0 7.0-25. complet at 017 0 ed SerPl 05:26 GFR/BSA 93 >60 complet .pred 017 mL/min/ ed SerPl 05:26 1.73 MDRD-Ar VRat Calcium 8.5 8.7-10. complet 017 mg/dL 4 ed XXX-sCn 05:26 c CO2 28.0 20.0-31 complet SerPl-s 017 mmol/L .0 ed Cnc 05:26 Chlorid 104 99-109 complet e 017 mmol/L ed SerPl-s 05:26 Cnc Potassi 2.8 3.5-5.5 complet um 017 mmol/L ed Bld-sCn 05:26 c Sodium 139 132-146 complet Bld-sCn 017 mmol/L ed c 05:26 Creat 0.80 0.60-1. complet Bld-mCn 017 mg/dL 30 ed c 05:26 BUN 8 mg/dL 9-23 complet Bld-mCn 017 ed c 05:26 Glucose 89 70-100 complet 017 mg/dL ed Bld-mCn 05:26 c CBC W Diff pnl,unspecified Bld (07-21-2017 05:26) Imm 09-19-2 0.02 0.00-0. complet Granulo 017 10*3/mm 03 ed cytes # 05:26 3 Bld Basophi 09-19-2 0.03 0.00-0. complet ls # 017 10*3/mm 20 ed Bld 05:26 3 Auto Eosinop 09-19-2 0.62 0.00-0. complet hil # 017 10*3/mm 30 ed Bld 05:26 3 Auto Monocyt 09-19-2 0.90 0.00-1. complet es # 017 10*3/mm 00 ed Bld 05:26 3 Auto Lymphoc 09-19-2 1.63 0.60-4. complet ytes # 017 10*3/mm 80 ed Bld 05:26 3 Auto Neutrop 09-19-2 4.08 1.50-8. complet hils # 017 10*3/mm 30 ed Bld 05:26 3 Auto Imm 09-19-2 0.3 % 0.0-0.6 complet Granulo 017 ed cytes/l 05:26 euk NFr Bld Basophi -19-2 0.4 % 0.0-1.0 complet ls/leuk 017 ed NFr 05:26 Bld Auto Eosinop 09-19-2 8.5 % 0.0-3.0 complet hil/luke 017 ed k NFr 05:26 Bld Auto Monocyt 09-19-2 12.4 % 0.0-12. complet es/leuk 017 0 ed NFr 05:26 Bld Auto Lymphoc 09-19-2 22.4 % 24.0-44 complet ytes/le 017 .0 ed uk NFr 05:26 Bld Auto Neutrop 09-19-2 56.0 % 41.0-71 complet hils/le 017 .0 ed uk NFr 05:26 Bld Auto Platele 09-19-2 203 150-450 complet t # Bld 017 10*3/mm ed Auto 05:26 3 PMV Bld -19-2 11.0 fL 6.0-12. complet Auto 017 0 ed 05:26 RDW RBC 09-19-2 57.4 fl 37.0-54 complet Auto 017 .0 ed 05:26 RDW RBC 09-19-2 16.8 % 11.3-14 complet 017 .5 ed Auto-Rt 05:26 o MCHC 32.4 32.0-36 complet RBC 017 g/dL .0 ed Auto-mC 05:26 nc MCH RBC 30.2 pg 27.0-31 complet Qn 017 .0 ed Auto 05:26 MCV RBC 93.2 fL 80.0-99 complet Auto 017 .0 ed 05:26 Hct VFr 35.8 % 38.9-50 complet Bld 017 .9 ed Auto 05:26 Hgb 2 11.6 13.1-17 complet Bld-mCn 017 g/dL .5 ed c 05:26 RBC # 07-21-2 3.84 4.20-5. complet Bld 017 10*6/mm 76 ed Auto 05:26 3 WBC 07-21- 7.28 3.50-10 complet nRBC 017 10*3/mm .80 ed cor # 05:26 3 Bld Potassium SerPl-sCnc (07-20-2017 08:53) Potassi 3.8 3.5-5.5 complet um 017 mmol/L ed Bld-sCn 08:53 c BNP SerPl-mCnc (07-20-2017 05:34) BNP 240.0 0.0-100 complet SerPl-m 017 pg/mL .0 ed Cnc 05:34 Hgb A1c Bld (07-20-2017 05:34) Hgb A1c 5.00 % 4.80-5. complet MFr 017 60 ed Bld 05:34 Bas Metab 2000 Pnl SerPl (07-20-2017 05:34) BUN 11 9-23 complet Bld-mCn 017 mg/dL ed c 05:34 Glucose 88 70-100 complet 017 mg/dL ed Bld-mCn 05:34 c Anion 4.0 3.0-11. complet Gap3 017 mmol/L 0 ed SerPl-s 05:34 Cnc BUN/Cre 12.2 7.0-25. complet at 017 0 ed SerPl 05:34 GFR/BSA 81 >60 complet .pred 017 mL/min/ ed SerPl 05:34 1.73 MDRD-Ar VRat Calcium 18-2 8.3 8.7-10. complet 017 mg/dL 4 ed XXX-sCn 05:34 c CO2 18-2 31.0 20.0-31 complet SerPl-s 017 mmol/L .0 ed Cnc 05:34 Chlorid 18-2 104 99-109 complet e 017 mmol/L ed SerPl-s 05:34 Cnc Potassi 18-2 3.3 3.5-5.5 complet um 017 mmol/L ed Bld-sCn 05:34 c Sodium 18-2 139 132-146 complet Bld-sCn 017 mmol/L ed c 05:34 Creat 18-2 0.90 0.60-1. complet Bld-mCn 017 mg/dL 30 ed c 05:34 CBC (hemogram) Bld Auto (07-20-2017 05:34) Platele 18-2 219 150-450 complet t # Bld 017 10*3/mm ed Auto 05:34 3 PMV Bld 18-2 11.5 fL 6.0-12. complet Auto 017 0 ed 05:34 RDW RBC 18-2 57.8 fl 37.0-54 complet Auto 017 .0 ed 05:34 RDW RBC 18-2 16.9 % 11.3-14 complet 017 .5 ed Auto-Rt 05:34 o MCHC -18-2 32.4 32.0-36 complet RBC 017 g/dL .0 ed Auto-mC 05:34 nc MCH RBC 18-2 30.1 pg 27.0-31 complet Qn 017 .0 ed Auto 05:34 MCV RBC 18-2 93.0 fL 80.0-99 complet Auto 017 .0 ed 05:34 Hct VFr 18-2 34.3 % 38.9-50 complet Bld 017 .9 ed Auto 05:34 Hgb -18-2 11.1 13.1-17 complet Bld-mCn 017 g/dL .5 ed c 05:34 RBC # -18-2 3.69 4.20-5. complet Bld 017 10*6/mm 76 ed Auto 05:34 3 WBC -18-2 9.74 3.50-10 complet nRBC 017 10*3/mm .80 ed cor # 05:34 3 Bld UA Dipstick Pnl Ur (07-19-2017 19:34) Urobili 1.0 0.2 - complet nogen 017 E.U./dL 1.0 ed Ur Ql 19:34 E.U./dL Strip Nitrite [id number] Negativ complet Ur Ql 017 09 e ed Strip 19:34 Negativ e SCT Leukocy [id number] Negativ complet te 017 09 e ed esteras 19:34 Negativ e Ur Ql e SCT Strip.a uto Prot Ur [id number] Negativ complet Ql 017 09 e ed Strip 19:34 Negativ e SCT Hgb Ur [id number] Negativ complet Ql 017 09 e ed Strip.a 19:34 Negativ uto e SCT Bilirub [id number] Negativ complet Ur Ql 017 09 e ed Strip 19:34 Negativ e SCT Ketones [id number] Negativ complet Ur Ql 017 09 e ed Strip 19:34 Negativ e SCT Glucose [id number] Negativ complet Ur 017 06 e ed Strip-m 19:34 Trace Cnc SCT Sp Gr 1.012 1.001-1 complet Ur 017 .030 ed Strip 19:34 pH Ur 5.5 5.0-8.0 complet Strip.a 017 ed uto 19:34 Clarity [id number] Clear complet Ur 017 01 ed 19:34 Clear SCT Color [id number] Yellow, complet Ur 017 09 Straw ed 19:34 Yellow color SCT Gas Pnl BldA (07-19-2017 19:05) CO2 31.5 22-33 complet BldA-sC 017 ed nc 19:05 COHgb 1.7 % 0-2 complet MFr Bld 017 ed 19:05 MetHgb 0.90 % 0.00-1. complet Bld Ql 017 50 ed 19:05 OxyHgb 91.5 % 94-99 complet MFr 017 ed BldV 19:05 Hct VFr 37.8 % complet Bld 017 ed 19:05 Hgb 12.3 13.5-17 complet BldA-mC 017 g/dL .5 ed nc 19:05 SaO2 % 91.5 % complet BldCoA 017 ed 19:05 Base 6.2 0.0-2.0 complet excess 017 mmol/L ed BldA 19:05 Calc-sC nc HCO3 30.3 20.0-26 complet BldA-sC 017 mmol/L .0 ed nc 19:05 pO2 63.7 mm 83.0-10 complet BldA 017 Hg 8.0 ed 19:05 pCO2 40.6 mm 35.0-48 complet BldA 017 Hg .0 ed 19:05 pH BldA 7.481 7.350-7 complet 017 pH .450 ed 19:05 units Arteria [id number] complet l 017 09 Not ed patency 19:05 applica Wrist ble SCT a Bdy Arteria complet site 017 l: left ed 19:05 radial Horowit 28 % complet z index 017 ed 19:05 Bld+IhG -Rto Bacteria Bld Cult (07-19-2017 18:50) Bacteri No active a XXX 017 growth Aerobe 18:50 at 3 Cult days Bacteria Bld Cult (07-19-2017 18:50) Bacteri No complet a XXX 017 growth ed Aerobe 18:50 at 5 Cult days Lactate SerPl-sCnc (07-19-2017 18:50) D-Lacta 1.7 0.5-2.0 complet te 017 mmol/L ed SerPl-s 18:50 Cnc Troponin T SerPl Ql (07-19-2017 18:13) Troponi 0.03 0.00-0. complet n I 017 ng/mL 07 ed SerPl-m 18:13 Cnc Bacteria Bld Cult (07-19-2017 17:55) Bacteri No active a XXX 017 growth Aerobe 17:55 at 3 Cult days Bacteria Bld Cult (07-19-2017 17:55) Bacteri No complet a XXX 017 growth ed Aerobe 17:55 at 5 Cult days CBC W Diff pnl,unspecified Bld (07-19-2017 17:55) Imm 07-19- 0.03 0.00-0. complet Granulo 017 10*3/mm 03 ed cytes # 17:55 3 Bld Basophi 0.03 0.00-0. complet ls # 017 10*3/mm 20 ed Bld 17:55 3 Auto Eosinop 0.15 0.00-0. complet hil # 017 10*3/mm 30 ed Bld 17:55 3 Auto Monocyt 1.33 0.00-1. complet es # 017 10*3/mm 00 ed Bld 17:55 3 Auto Lymphoc 0.74 0.60-4. complet ytes # 017 10*3/mm 80 ed Bld 17:55 3 Auto Neutrop 12.01 1.50-8. complet hils # 017 10*3/mm 30 ed Bld 17:55 3 Auto Imm 0.2 % 0.0-0.6 complet Granulo 017 ed cytes/l 17:55 euk NFr Bld Basophi 0.2 % 0.0-1.0 complet ls/leuk 017 ed NFr 17:55 Bld Auto Eosinop 1.0 % 0.0-3.0 complet hil/luke 017 ed k NFr 17:55 Bld Auto Monocyt 9.3 % 0.0-12. complet es/leuk 017 0 ed NFr 17:55 Bld Auto Lymphoc 5.2 % 24.0-44 complet ytes/le 017 .0 ed uk NFr 17:55 Bld Auto Neutrop 84.1 % 41.0-71 complet hils/le 017 .0 ed uk NFr 17:55 Bld Auto Platele 218 150-450 complet t # Bld 017 10*3/mm ed Auto 17:55 3 PMV Bld 10.7 fL 6.0-12. complet Auto 017 0 ed 17:55 RDW RBC 57.4 fl 37.0-54 complet Auto 017 .0 ed 17:55 RDW RBC 16.7 % 11.3-14 complet 017 .5 ed Auto-Rt 17:55 o MCHC 31.9 32.0-36 complet RBC 017 g/dL .0 ed Auto-mC 17:55 nc MCH RBC 29.8 pg 27.0-31 complet Qn 017 .0 ed Auto 17:55 MCV RBC 93.5 fL 80.0-99 complet Auto 017 .0 ed 17:55 Hct VFr 40.5 % 38.9-50 complet Bld 017 .9 ed Auto 17:55 Hgb 12.9 13.1-17 complet Bld-mCn 017 g/dL .5 ed c 17:55 RBC # 4.33 4.20-5. complet Bld 017 10*6/mm 76 ed Auto 17:55 3 WBC 14.29 3.50-10 complet nRBC 017 10*3/mm .80 ed cor # 17:55 3 Bld Comp Metab 1998 Pnl SerPl (07-19-2017 17:55) Anion 9.0 3.0-11. complet Gap3 017 mmol/L 0 ed SerPl-s 17:55 Cnc BUN/Cre 14.0 7.0-25. complet at 017 0 ed SerPl 17:55 Albumin 1.0 1.5-2.5 complet /Glob 017 g/dL ed SerPl 17:55 Globuli 3.9 complet n Ur 017 gm/dL ed Elph-mC 17:55 nc GFR/BSA 72 >60 complet .pred 017 mL/min/ ed SerPl 17:55 1.73 MDRD-Ar VRat Bilirub 1.6 0.3-1.2 complet 017 mg/dL ed SerPl-m 17:55 Cnc ALP 98 U/L 25-100 complet SerPl-c 017 ed Cnc 17:55 AST 21 U/L 0-33 complet SerPl-c 017 ed Cnc 17:55 ALT 15 U/L 7-40 complet SerPl w 017 ed 17:55 P-5'-P- cCnc Albumin 3.80 3.20-4. complet 017 g/dL 80 ed SerPl-m 17:55 Cnc Prot 7.7 5.7-8.2 complet SerPl-m 017 g/dL ed Cnc 17:55 Calcium 8.9 8.7-10. complet 017 mg/dL 4 ed XXX-sCn 17:55 c CO2 30.0 20.0-31 complet SerPl-s 017 mmol/L .0 ed Cnc 17:55 Chlorid 99 99-109 complet e 017 mmol/L ed SerPl-s 17:55 Cnc Potassi 2.9 3.5-5.5 complet um 017 mmol/L ed Bld-sCn 17:55 c Sodium 138 132-146 complet Bld-sCn 017 mmol/L ed c 17:55 Creat 1.00 0.60-1. complet Bld-mCn 017 mg/dL 30 ed c 17:55 BUN 14 9-23 complet Bld-mCn 017 mg/dL ed c 17:55 Glucose 151 70-100 complet 017 mg/dL ed Bld-mCn 17:55 c Mg Ionized SerPl-mCnc (07-19-2017 17:55) Magnesi 1.9 1.3-2.7 complet um 017 mg/dL ed SerPl-m 17:55 Cnc Differential panel, method unspecified - (04-17-2017 11:33) LYMPH 10 % 10% - Normal complet 017 50% ed 11:33 Platele NORMAL complet ts 017 ed [Presen 11:33 ce] in Blood by Light microsc opy
--- OUTSIDE RECORDS SUMMARY | 2017-09-03 00:11 | External Medical Summary Rpt | CCD ---
Author Author , MCKENNA ANDRES Address Unknown Phone [email or web address] Purpose Continuity of Care Document - 04-17-2017 [...] PART OF HEAD, INITIAL ENCOUNTER Z79.899 OTHER [facility] (CURRENT) DRUG THERAPY Results Labs Lab Lab [...] blood 07:45 platele t mean volume serenity [place] % = 8.9 % 1.7-9.3 complet 017 [...] ed Ur Ql 19:34 E.U./dL Strip Nitrite [id number] Negativ complet Ur Ql 017 09 e ed Strip 19:34 Negativ e SCT Leukocy [id number] Negativ complet te 017 09 e ed esteras 19:34 Negativ e Ur Ql e SCT Strip.a uto Prot Ur [id number] Negativ complet Ql 017 09 e ed Strip 19:34 Negativ e SCT Hgb Ur [id number] Negativ complet Ql 017 09 e ed Strip.a 19:34 Negativ uto e SCT Bilirub [id number] Negativ complet Ur Ql 017 09 e ed Strip 19:34 Negativ e SCT Ketones [id number] Negativ complet Ur Ql 017 09 e ed Strip 19:34 Negativ e SCT Glucose [id number] Negativ complet Ur 017 06 e ed Strip-m 19:34 Trace Cnc SCT Sp Gr 1.012 1.001-1 complet Ur 017 .030 ed Strip 19:34 pH Ur 5.5 5.0-8.0 complet Strip.a 017 ed uto 19:34 Clarity [id number] Clear complet Ur 017 01 ed 19:34 Clear SCT Color [id number] Yellow, complet Ur 017 09 Straw ed [...] 017 pH .450 ed 19:05 units Arteria [id number] complet l 017 09 Not ed patency [...]
--- OUTSIDE RECORDS SUMMARY | 2017-09-03 00:12 | External Medical Summary Rpt | CCD ---
Demographics Preferred Language Maltese Marital Status Unknown Roman Catholic Affiliation Unknown Race Unknown Ethnic Group Unknown Author Author , MCKENNA ANDRES Address Unknown Phone [email or web address] Immunization Name Date Rout CVX Reac Dose Comm Prov Is Faci e tion ent ider Refu lity Give sed n Td 03-0 9 999 Hist H149 No H149 (servando 9-19 [facility] lt), 97 al Info adso rmat rbed ion - Sour ce Unsp ecif ied
--- OUTSIDE RECORDS SUMMARY | 2017-09-03 00:12 | External Medical Summary Rpt | CCD ---
Demographics Preferred Language Japanese Marital Status Unknown Advent Affiliation Unknown Race Unknown Ethnic Group Unknown Author Author , MCKENNA ANDRES Address Unknown Phone [email or web address] Immunization Name Date Rout CVX Reac Dose Comm Prov Is Faci e tion ent ider Refu lity Give sed n Td 03-0 9 999 Hist H149 No H149 (servando 9-19 [facility] lt), 97 al Info adso rmat rbed ion - Sour ce Unsp ecif ied
--- OUTSIDE RECORDS SUMMARY | 2017-09-03 00:13 | External Medical Summary Rpt ---
Author Author MCKENNA Woodall, [employer] Organization [employer] Address Unknown Phone Unavailable Results Basic metabolic panel in Blood Observa Value Referen Units Interpr Notes Date tion ce etation Range Urea 7 - 18 mg/dL High No Oct 25 nitrogen informati 2017 7:45 [Mass/vol on in AM ume] in source Serum or data Plasma Calcium 8.5 - mg/dL Low No Oct 25 [Mass/vol 10.1 informati 2017 7:45 ume] in on in AM Serum or source Plasma data Chloride 98 - 107 mmoL/L Normal No Oct 25 [Moles/vo informati 2017 7:45 lume] in on in AM Serum or source Plasma data Carbon 21.0 - mmoL/L High No Aug 25 dioxide, 32.0 informati 2016 7:45 total on in AM [Moles/vo source lume] in data Serum or Plasma Creatinin 0.70 - mg/dL Normal No Oct 25 e 1.30 informati 2016 7:45 [Mass/vol on in AM ume] in source Serum or data Plasma Estimated >60 ML/MIN No REFERENCE Oct 25 informati RANGE: 2017 7:45 glomerula on in >60 AM r source ML/MIN/1. filtratio data 73 SQUARE n rate METERSIf (GF this patient is -A merican, then multiply theresult by 1.210. Glucose 74 - 106 mg/dL Normal No Oct 25 [Mass/vol informati 2016 7:45 ume] in on in AM Serum or source Plasma data Potassium 3.5 - 5.1 mmoL/L Low alert Oct 25 2016 7:45 [Moles/vo CRITICAL AM lume] in RESULTS Serum or Plasma RESU LTS CALLED TO: MOMO 08/26/17 0803 Rodney Alonzo e Sodium 136 - 145 mmoL/L Normal No Oct 25 [Moles/vo informati 2016 7:45 lume] in on in AM Serum or source Plasma data CBC W Auto Differential panel in Blood Observa Value Referen Units Interpr Notes Date tion ce etation Range Basophils 0 - 0.2 K/MM3 Normal No Aug 26 inform2016 7:45 [#/volume on in AM ] in source Blood by data Automated count Basophils 0.1 - 2.0 % Normal No Aug 26 /100 informati 2016 7:45 leukocyte on in AM s in source Blood by data Automated count Eosinophi 0.0 - 0.4 K/mm3 High No Aug 26 ls informati 2016 7:45 [#/volume on in AM ] in source Blood by data Automated count Eosinophi 0.1 - % Normal No Aug 26 ls/100 12.0 informati 2016 7:45 leukocyte on in AM s in source Blood by data Automated count Granulocy 1.3 - 8.0 K/mm3 Normal No Aug 26 rosalia informati 2016 7:45 [#/volume on in AM ] in source Blood by data Automated count Granulocy 37.0 - % Normal No Aug 26 rosalia/100 80.0 informati 2016 7:45 leukocyte on in AM s in source Blood by data Automated count Hematocri 42.0 - % Low No Aug 26 t [Volume 52.0 informati 2016 7:45 on in AM Fraction] source of Blood data Hemoglobi 14.1 - g/dL Low No Aug 26 n 18.0 informati 2016 7:45 [Mass/vol on in AM ume] in source Blood data Lymphocyt 0.7 - 4.5 K/mm3 Normal No Aug 26 es informati 2016 7:45 [#/volume on in AM ] in source Unspecifi data ed specimen by Automated count Lymphocyt 10 - 50 % Normal No Aug 26 es informati 2016 7:45 [#/volume on in AM ] in source Unspecifi data ed specimen by Automated count Erythrocy 27 - 31.2 pg Normal No Aug 26 te mean informati 2016 7:45 corpuscul on in AM ar source hemoglobi data n [Entitic mass] Erythrocy 31.8 - g/dl Normal No Aug 26 te mean 35.4 informati 2016 7:45 corpuscul on in AM ar source hemoglobi data n concentra tion [Mass/vol ume] by Automated count Erythrocy 82.2 - fl Normal No Aug 26 te mean 97.8 informati 2016 7:45 corpuscul on in AM ar volume source [Entitic data volume] by Automated count Monocytes 0.1 - 1.0 K/mm3 Normal No Aug 26 inform2016 7:45 [#/volume on in AM ] in source Blood by data Automated count Monocytes 1.7 - 9.3 % Normal No Aug 26 /100 informati 2016 7:45 leukocyte on in AM s in source Blood by data Automated count Platelet 7.4 - fl Normal No Aug 26 mean 10.4 informati 2016 7:45 volume on in AM [Entitic source volume] data in Blood by Automated count Platelets 142 - 424 K/mm3 No No Aug 26 informati informati 2016 7:45 [#/volume on in on in AM ] in source source Blood data data Erythrocy 4.6 - 6.2 M/mm3 Low No Aug 26 rosalia informati 2016 7:45 [#/volume on in AM ] in source Amniotic data fluid Erythrocy 11.5 - % Normal No Aug 26 te 17.5 informati 2016 7:45 distribut on in AM ion width source [Entitic data volume] by Automated count Leukocyte 4.8 - K/MM3 Normal No Aug 26 s 10.8 informati 2016 7:45 [#/volume on in AM ] in source Blood data Lactate [Moles/volume] in Blood Observa Value Referen Units Interpr Notes Date tion ce etation Range Lactate 0.4 - 2.0 mmol/L Normal No Jul 13 [Moles/vo informati 2016 2:53 lume] in on in PM Blood source data CBC W Auto Differential panel in Blood Observa Value Referen Units Interpr Notes Date tion ce etation Range Basophils 0 - 0.2 K/MM3 Normal No Sep 13 informati 2016 2:53 [#/volume on in PM ] in source Blood by data Automated count Basophils 0.1 - 2.0 % Normal No Jul 13 /100 informati 2016 2:53 leukocyte on in PM s in source Blood by data Automated count Eosinophi 0.0 - 0.4 K/mm3 Normal No Sep 13 ls informati 2016 2:53 [#/volume on in PM ] in source Blood by data Automated count Eosinophi 0.1 - % Normal No Sep 13 ls/100 12.0 informati 2016 2:53 leukocyte on in PM s in source Blood by data Automated count Granulocy 1.3 - 8.0 K/mm3 Normal No Sep 13 rosalia informati 2017 2:53 [#/volume on in PM ] in source Blood by data Automated count Granulocy 37.0 - % Normal No Sep 13 rosalia/100 80.0 informati 2017 2:53 leukocyte on in PM s in source Blood by data Automated count Hematocri 42.0 - % Normal No Sep 13 t [Volume 52.0 informati 2016 2:53 on in PM Fraction] source of Blood data Hemoglobi 14.1 - g/dL No No Sep 13 n 18.0 informati informati 2017 2:53 [Mass/vol on in on in PM ume] in source source Blood data data Lymphocyt 0.7 - 4.5 K/mm3 Normal No Sep 13 es informati 2016 2:53 [#/volume on in PM ] in source Unspecifi data ed specimen by Automated count Lymphocyt 10 - 50 % Normal No Sep 13 es inform2016 2:53 [#/volume on in PM ] in source Unspecifi data ed specimen by Automated count Erythrocy 27 - 31.2 pg Normal No Sep 13 te mean informati 2016 2:53 corpuscul on in PM ar source hemoglobi data n [Entitic mass] Erythrocy 31.8 - g/dl Low No Sep 13 te mean 35.4 informati 2016 2:53 corpuscul on in PM ar source hemoglobi data n concentra tion [Mass/vol ume] by Automated count Erythrocy 82.2 - fl Normal No Sep 13 te mean 97.8 informati 2016 2:53 corpuscul on in PM ar volume source [Entitic data volume] by Automated count Monocytes 0.1 - 1.0 K/mm3 Normal No Sep 13 informati 2017 2:53 [#/volume on in PM ] in source Blood by data Automated count Monocytes 1.7 - 9.3 % Normal No Sep 13 /100 informati 2017 2:53 leukocyte on in PM s in source Blood by data Automated count Platelet 7.4 - fl Normal No Sep 13 mean 10.4 informati 2016 2:53 volume on in PM [Entitic source volume] data in Blood by Automated count Platelets 142 - 424 K/mm3 Normal No Sep 13 inform2016 2:53 [#/volume on in PM ] in source Blood data Erythrocy 4.6 - 6.2 M/mm3 Normal No Sep 13 rosalia informati 2016 2:53 [#/volume on in PM ] in source Amniotic data fluid Erythrocy 11.5 - % Normal No Jul 13 te 17.5 informati 2016 2:53 distribut on in PM ion width source [Entitic data volume] by Automated count Leukocyte 4.8 - K/MM3 Normal No Jul 13 s 10.8 informati 2016 2:53 [#/volume on in PM ] in source Blood data INR in Blood by Coagulation assay Observa Value Referen Units Interpr Notes Date tion ce etation Range IS PATIENT ON ANTICOAGULANTS? Y LIST ANTICOAGULANTS: WARFARIN INR in 0.9 - 1.1 No High INDICATIO Jul 01 Blood by informati N 2016 2:00 Coagulati on in PM on assay source INR data RANGETHER APY FOR DVT, PE, ATRIAL FIB; 2.0 - 3.0PROPHY LAXIS FOR VTETHERAP Y FOR MECHANICA L HEART 2.5 - 3.5VALVE; PREVENTIO N OF SYSTEMICE MBOLISM SECONDARY TO AMI Prothromb 9.4 - SECONDS High No Jul 01 in time 11.8 informati 2016 2:00 (PT) in on in PM Platelet source poor data plasma by Coagulati on assay Free T4 & TSH panel in Serum or Plasma Observa Value Referen Units Interpr Notes tion ce etation Range Thyroxine 5.93 - ug/dl Low No Jun 15 (T4) 13.13 inform2016 2:00 free on in PM index in source Serum or data Plasma Triiodoth 31 - 39 % Normal No Jun 15 yronine 2016 2:00 (T3) on in PM resin source uptake in data Serum or Plasma Thyroxine 4.7 - ug/dl Low No Jun 15 (T4) 13.3 informati 2016 2:00 [Mass/vol on in PM ume] in source Serum or data Plasma Thyrotrop 0.358 - uIU/ml High No Jun 15 in 3.740 informati 2016 2:00 [Units/vo on in PM lume] in source Serum or data Plasma CBC W Auto Differential panel in Blood Observa Value Referen Units Interpr Notes Date tion ce etation Range Basophils 0 - 0.2 K/MM3 Normal No Jun 14 inform2016 2:00 [#/volume on in PM ] in source Blood by data Automated count Basophils 0.1 - 2.0 % Normal No Jun 14 /100 inform2016 2:00 leukocyte on in PM s in source Blood by data Automated count Eosinophi 0.0 - 0.4 K/mm3 High No Jun 14 ls 2016 2:00 [#/volume on in PM ] in source Blood by data Automated count Eosinophi 0.1 - % Normal No Jun 14 ls/100 12.0 inform2016 2:00 leukocyte on in PM s in source Blood by data Automated count Granulocy 1.3 - 8.0 K/mm3 Normal No Jun 14 rosalia 2016 2:00 [#/volume on in PM ] in source Blood by data Automated count Granulocy 37.0 - % Normal No Jun 15 rosalia/100 80.0 2016 2:00 leukocyte on in PM s in source Blood by data Automated count Hematocri 42.0 - % Low No Jun 15 t [Volume 52.0 2016 2:00 on in PM Fraction] source of Blood data Hemoglobi 14.1 - g/dL Low No Jun 15 n 18.0 2016 2:00 [Mass/vol on in PM ume] in source Blood data Lymphocyt 0.7 - 4.5 K/mm3 Normal No Jun 14 es 2016 2:00 [#/volume on in PM ] in source Unspecifi data ed specimen by Automated count Lymphocyt 10 - 50 % Normal No Jun 15 es 2016 2:00 [#/volume on in PM ] in source Unspecifi data ed specimen by Automated count Erythrocy 27 - 31.2 pg Normal No Jun 15 te mean inform2016 2:00 corpuscul on in PM ar source hemoglobi data n [Entitic mass] Erythrocy 31.8 - g/dl Low No Jun 15 te mean 35.4 2016 2:00 corpuscul on in PM ar source hemoglobi data n concentra tion [Mass/vol ume] by Automated count Erythrocy 82.2 - fl Normal No Jun 15 te mean 97.8 2016 2:00 corpuscul on in PM ar volume source [Entitic data volume] by Automated count Monocytes 0.1 - 1.0 K/mm3 Normal No Jun 14 2016 2:00 [#/volume on in PM ] in source Blood by data Automated count Monocytes 1.7 - 9.3 % Normal No Jun 14 /100 informati 2016 2:00 leukocyte on in PM s in source Blood by data Automated count Platelet 7.4 - fl Normal No Jun 15 mean 10.4 2016 2:00 volume on in PM [Entitic source volume] data in Blood by Automated count Platelets 142 - 424 K/mm3 Normal No Jun 14 inform2016 2:00 [#/volume on in PM ] in source Blood data Erythrocy 4.6 - 6.2 M/mm3 Low No Jun 15 rosalia informati 2016 2:00 [#/volume on in PM ] in source Amniotic data fluid Erythrocy 11.5 - % Normal No Jun 15 te 17.5 informati 2016 2:00 distribut on in PM ion width source [Entitic data volume] by Automated count Leukocyte 4.8 - K/MM3 Normal No Jun 15 s 10.8 2016 2:00 [#/volume on in PM ] in source Blood data Troponin I.cardiac [Mass/volume] in Serum or Plasma Observa Value Referen Units Interpr Notes Date tion ce etation Range Troponin 0.00 - ng/mL Normal No Jun 07 I.cardiac 0.06 informati 2016 3:01 on in AM [Mass/vol source ume] in data Serum or Plasma Amylase [Enzymatic activity/volume] in Serum or Plasma Observa Value Referen Units Interpr Notes Date tion ce etation Range Amylase 25 - 115 U/L Normal No Jun 06 [Enzymati informati 2016 c on in 11:59 PM activity/ source volume] data in Serum or Plasma Lipase [Enzymatic activity/volume] in Serum or Plasma Observa Value Referen Units Interpr Notes Date tion ce etation Range Lipase 73 - 393 U/L Normal No Jun 06 [Enzymati informati 2016 c on in 11:59 PM activity/ source volume] data in Serum or Plasma Amylase [Enzymatic activity/volume] in Serum or Plasma Observa Value Referen Units Interpr Notes ti ce etation Range Amylase 25 - 115 U/L Normal No Jun 06 [Enzymati informati 2016 c on in 11:59 PM activity/ source volume] data in Serum or Plasma Lipase [Enzymatic activity/volume] in Serum or Plasma Observa Value Referen Units Interpr Notes Date tion ce etation Range Lipase 73 - 393 U/L Normal No Jun 5 [Enzymati informati 2017 c on in 11:59 PM activity/ source volume] data in Serum or Plasma Cardiac enzymes Observa Value Referen Units Interpr Notes Date tion ce etation Range Creatine 0 - 4.0 U/L Normal No Jun 06 kinase.MB informati 2016 /Creatine on in 11:59 PM source kinase.to data carole [Ratio] in Serum or Plasma Creatine 0.0 - 3.6 ng/mL Normal Jun 06 kinase.MB informati 2016 on in 11:59 PM [Mass/vol source ume] in data Serum or Plasma Creatine 39 - 308 U/L Low No Jun 06 kinase informati 2017 [Enzymati on in 11:59 PM c source activity/ data volume] in Serum or Plasma Troponin 0.00 - ng/mL Normal No Jun 06 I.cardiac 0.06 informati 2016 on in 11:59 PM [Mass/vol source ume] in data Serum or Plasma Comprehensive metabolic 2000 panel in Serum or Plasma Observa Value Referen Units Interpr Notes Date tion ce etation Range Albumin/G 1.1 - 1.8 No Low No Jun 06 lobulin informati informati 2016 [Mass on in on in 11:59 PM ratio] in source source Serum or data data Plasma Albumin 3.4 - 5.0 gm/dL Low No Jun 06 [Mass/vol informati 2016 ume] in on in 11:59 PM Serum or source Plasma data Alkaline 46 - 116 U/L Normal No Jun 06 phosphata informati 2016 se on in 11:59 PM [Enzymati source c data activity/ volume] in Serum or Plasma Bilirubin 0.2 - 1.0 mg/dL Normal No Jun 06 .total informati 2016 [Mass/vol on in 11:59 PM ume] in source Serum or data Plasma Urea 7 - 18 mg/dL Normal No Jun 06 nitrogen informati 2016 [Mass/vol on in 11:59 PM ume] in source Serum or data Plasma Calcium 8.5 - mg/dL Low No Jun 06 [Mass/vol 10.1 informati 2016 ume] in on in 11:59 PM Serum or source Plasma data Chloride 98 - 107 mmoL/L Normal No Jun 06 [Moles/vo informati 2017 lume] in on in 11:59 PM Serum or source Plasma data Carbon 21.0 - mmoL/L Normal No Jun 06 dioxide, 32.0 informati 2016 total on in 11:59 PM [Moles/vo source lume] in data Serum or Plasma Creatinin 0.70 - mg/dL Normal No Jun 06 e 1.30 inform2016 [Mass/vol on in 11:59 PM ume] in source Serum or data Plasma Creatinin 50 - 200 ML/MIN Normal No Jun 06 e renal 2016 clearance on in 11:59 PM source predicted data by Cockcroft -Gault formula Estimated >60 ML/MIN No REFERENCE Jun 06 informati RANGE: 2017 glomerula on in >60 11:59 PM r source ML/MIN/1. filtratio data 73 SQUARE n rate METERSIf (GF this patient is -A merican, then multiply theresult by 1.210. Globulin 1.3 - 3.2 gm/dL High No Jun 06 [Mass/vol informati 2016 ume] in on in 11:59 PM Serum source data Glucose 74 - 106 mg/dL High No Jun 06 [Mass/vol informati 2016 ume] in on in 11:59 PM Serum or source Plasma data Potassium 3.5 - 5.1 mmoL/L Low No Jun 062016 [Moles/vo on in 11:59 PM lume] in source Serum or data Plasma Sodium 136 - 145 mmoL/L Normal No Jun 06 [Moles/vo informati 2016 lume] in on in 11:59 PM Serum or source Plasma data Aspartate 15 - 37 U/L Normal No Jun 062016 aminotran on in 11:59 PM sferase source [Enzymati data c activity/ volume] in Serum or Plasma Alanine 12 - 78 U/L Normal No Jun 06 aminotran 2016 sferase on in 11:59 PM [Enzymati source c data activity/ volume] in Serum or Plasma Protein 6.4 - 8.2 gm/dL Normal No Jun 06 [Mass/vol informati 2016 ume] in on in 11:59 PM Serum or source Plasma data CBC W Auto Differential panel in Blood Observa Value Referen Units Interpr Notes Date tion ce etation Range Basophils 0 - 0.2 K/MM3 Normal No Jun 062016 [#/volume on in 11:59 PM ] in source Blood by data Automated count Basophils 0.1 - 2.0 % Normal No Jun 06 /100 2016 leukocyte on in 11:59 PM s in source Blood by data Automated count Eosinophi 0.0 - 0.4 K/mm3 Normal No Jun 06 ls informati 2016 [#/volume on in 11:59 PM ] in source Blood by data Automated count Eosinophi 0.1 - % Normal No Jun 06 ls/100 12.0 inform2016 leukocyte on in 11:59 PM s in source Blood by data Automated count Granulocy 1.3 - 8.0 K/mm3 Normal No Jun 06 rosalia inform2016 [#/volume on in 11:59 PM ] in source Blood by data Automated count Granulocy 37.0 - % Normal No Jun 06 rosalia/100 80.0 inform2016 leukocyte on in 11:59 PM s in source Blood by data Automated count Hematocri 42.0 - % Low No Jun 06 t [Volume 52.0 ati 2016 on in 11:59 PM Fraction] source of Blood data Hemoglobi 14.1 - g/dL Low No Jun 06 n 18.0 informati 2016 [Mass/vol on in 11:59 PM ume] in source Blood data Lymphocyt 0.7 - 4.5 K/mm3 Normal No Jun 06 es 2016 [#/volume on in 11:59 PM ] in source Unspecifi data ed specimen by Automated count Lymphocyt 10 - 50 % Normal No Jun 06 es 2016 [#/volume on in 11:59 PM ] in source Unspecifi data ed specimen by Automated count Erythrocy 27 - 31.2 pg Normal No Jun 06 te mean 2016 corpuscul on in 11:59 PM ar source hemoglobi data n [Entitic mass] Erythrocy 31.8 - g/dl Normal No Jun 06 te mean 35.4 inform2016 corpuscul on in 11:59 PM ar source hemoglobi data n concentra tion [Mass/vol ume] by Automated count Erythrocy 82.2 - fl Normal No Jun 06 te mean 97.8 informati 2016 corpuscul on in 11:59 PM ar volume source [Entitic data volume] by Automated count Monocytes 0.1 - 1.0 K/mm3 Normal No Jun 062016 [#/volume on in 11:59 PM ] in source Blood by data Automated count Monocytes 1.7 - 9.3 % Normal No Jun 06 /100 informati 2016 leukocyte on in 11:59 PM s in source Blood by data Automated count Platelet 7.4 - fl Normal No Jun 06 mean 10.4 2016 volume on in 11:59 PM [Entitic source volume] data in Blood by Automated count Platelets 142 - 424 K/mm3 Normal No Jun 06 inform2016 [#/volume on in 11:59 PM ] in source Blood data Erythrocy 4.6 - 6.2 M/mm3 Low No Jun 06 rosalia ati 2016 [#/volume on in 11:59 PM ] in source Amniotic data fluid Erythrocy 11.5 - % Normal No Jun 06 te 17.5 informati 2016 distribut on in 11:59 PM ion width source [Entitic data volume] by Automated count Leukocyte 4.8 - K/MM3 Normal No Jun 06 s 10.8 informati 2016 [#/volume on in 11:59 PM ] in source Blood data INR in Blood by Coagulation assay Observa Value Referen Units Interpr Notes Date tion ce etation Range IS PATIENT ON ANTICOAGULANTS? N INR in 0.9 - 1.1 No High Apr 18 Blood by informati NOTIFICAT 2017 6:18 Coagulati on in ION AM on assay source RESULT data INDIC ATION INR RANGETHER APY FOR DVT, PE, ATRIAL FIB; 2.0 - 3.0PROPHY LAXIS FOR VTETHERAP Y FOR MECHANICA L HEART 2.5 - 3.5VALVE; PREVENTIO N OF SYSTEMICE MBOLISM SECONDARY TO AMI Prothromb 9.4 - SECONDS High Apr 18 in time 11.8 NOTIFICAT 2017 6:18 (PT) in ION AM Platelet RESULT poor plasma by Coagulati on assay Comprehensive metabolic 2000 panel in Serum or Plasma Observa Value Referen Units Interpr Notes Date tion ce etation Range Albumin/G 1.1 - 1.8 No Low No Apr 18 lobulin informati informati 2016 6:18 [Mass on in on in AM ratio] in source source Serum or data data Plasma Albumin 3.4 - 5.0 gm/dL Low No Apr 18 [Mass/vol informati 2017 6:18 ume] in on in AM Serum or source Plasma data Alkaline 46 - 116 U/L Normal No Apr 18 phosphata informati 2017 6:18 se on in AM [Enzymati source c data activity/ volume] in Serum or Plasma Bilirubin 0.2 - 1.0 mg/dL High No Apr 18 .total informati 2017 6:18 [Mass/vol on in AM ume] in source Serum or data Plasma Urea 7 - 18 mg/dL High No Apr 18 nitrogen informati 2017 6:18 [Mass/vol on in AM ume] in source Serum or data Plasma Calcium 8.5 - mg/dL Normal No Apr 17 [Mass/vol 10.1 informati 2017 6:18 ume] in on in AM Serum or source Plasma data Chloride 98 - 107 mmoL/L Normal No Apr 18 [Moles/vo informati 2017 6:18 lume] in on in AM Serum or source Plasma data Carbon 21.0 - mmoL/L Normal No Apr 18 dioxide, 32.0 informati 2017 6:18 total on in AM [Moles/vo source lume] in data Serum or Plasma Creatinin 0.70 - mg/dL High No Apr 17 e 1.30 informati 2017 6:18 [Mass/vol on in AM ume] in source Serum or data Plasma Creatinin 50 - 200 ML/MIN Low No Apr 18 e renal informati 2017 6:18 clearance on in AM source predicted data by Cockcroft -Gault formula Estimated >60 ML/MIN No REFERENCE Apr 18 informati RANGE: 2017 6:18 glomerula on in >60 AM r source ML/MIN/1. filtratio data 73 SQUARE n rate METERSIf (GF this patient is -A merican, then multiply theresult by 1.210. Globulin 1.3 - 3.2 gm/dL High No Apr 17 [Mass/vol informati 2016 6:18 ume] in on in AM Serum source data Glucose 74 - 106 mg/dL High No Apr 17 [Mass/vol informati 2017 6:18 ume] in on in AM Serum or source Plasma data Potassium 3.5 - 5.1 mmoL/L Low alert Apr 18 2017 6:18 [Moles/vo CRITICAL AM lume] in RESULTS Serum or Plasma RESU LTS CALLED TO: [facility] 04/18/17 0716 [place] Sodium 136 - 145 mmoL/L Normal No Apr 17 [Moles/vo informati 2017 6:18 lume] in on in AM Serum or source Plasma data Aspartate 15 - 37 U/L High No Apr 18 informati 2016 6:18 aminotran on in AM sferase source [Enzymati data c activity/ volume] in Serum or Plasma Alanine 12 - 78 U/L Normal No Apr 18 aminotran informati 2016 6:18 sferase on in AM [Enzymati source c data activity/ volume] in Serum or Plasma Protein 6.4 - 8.2 gm/dL Normal No Apr 17 [Mass/vol informati 2016 6:18 ume] in on in AM Serum or source Plasma data CBC W Auto Differential panel in Blood Observa Value Referen Units Interpr Notes Date tion ce etation Range Basophils 0 - 0.2 K/MM3 Normal No Apr 18 informati 2016 6:15 [#/volume on in AM ] in source Blood by data Automated count Basophils 0.1 - 2.0 % Normal No Apr 17 /100 informati 2017 6:15 leukocyte on in AM s in source Blood by data Automated count Eosinophi 0.0 - 0.4 K/mm3 Normal No Apr 18 ls informati 2016 6:15 [#/volume on in AM ] in source Blood by data Automated count Eosinophi 0.1 - % Normal No Apr 18 ls/100 12.0 informati 2017 6:15 leukocyte on in AM s in source Blood by data Automated count Granulocy 1.3 - 8.0 K/mm3 High No Apr 18 rosalia informati 2017 6:15 [#/volume on in AM ] in source Blood by data Automated count Granulocy 37.0 - % High No Apr 18 rosalia/100 80.0 informati 2016 6:15 leukocyte on in AM s in source Blood by data Automated count Hematocri 42.0 - % Normal No Apr 18 t [Volume 52.0 informati 2017 6:15 on in AM Fraction] source of Blood data Hemoglobi 14.1 - g/dL Normal No Apr 18 n 18.0 informati 2017 6:15 [Mass/vol on in AM ume] in source Blood data Lymphocyt 0.7 - 4.5 K/mm3 Low No Apr 18 es informati 2016 6:15 [#/volume on in AM ] in source Unspecifi data ed specimen by Automated count Lymphocyt 10 - 50 % Low No Apr 18 es informati 2016 6:15 [#/volume on in AM ] in source Unspecifi data ed specimen by Automated count Erythrocy 27 - 31.2 pg Normal No Apr 17 te mean inform2016 6:15 corpuscul on in AM ar source hemoglobi data n [Entitic mass] Erythrocy 31.8 - g/dl Normal No Apr 18 te mean 35.4 informati 2016 6:15 corpuscul on in AM ar source hemoglobi data n concentra tion [Mass/vol ume] by Automated count Erythrocy 82.2 - fl Normal No Apr 18 te mean 97.8 informati 2016 6:15 corpuscul on in AM ar volume source [Entitic data volume] by Automated count Monocytes 0.1 - 1.0 K/mm3 Normal No Apr 17 informati 2016 6:15 [#/volume on in AM ] in source Blood by data Automated count Monocytes 1.7 - 9.3 % Normal No Apr 17 /100 informati 2017 6:15 leukocyte on in AM s in source Blood by data Automated count Platelet 7.4 - fl Normal No Apr 18 mean 10.4 informati 2016 6:15 volume on in AM [Entitic source volume] data in Blood by Automated count Platelets 142 - 424 K/mm3 Normal No Apr 17 inform2016 6:15 [#/volume on in AM ] in source Blood data Erythrocy 4.6 - 6.2 M/mm3 Normal No Apr 17 rosalia informati 2017 6:15 [#/volume on in AM ] in source Amniotic data fluid Erythrocy 11.5 - % Normal No Apr 17 te 17.5 informati 2016 6:15 distribut on in AM ion width source [Entitic data volume] by Automated count Leukocyte 4.8 - K/MM3 High No Apr 17 s 10.8 informati 2016 6:15 [#/volume on in AM ] in source Blood data CBC W Auto Differential panel in Blood Observa Value Referen Units Interpr Notes Date tion ce etation Range Granulocy 1.3 - 8.0 K/mm3 High No Apr 16 rosalia inform2016 [#/volume on in 11:33 AM ] in source Blood by data Automated count Granulocy 37.0 - % High No Apr 16 rosalia/100 80.0 informati 2016 leukocyte on in 11:33 AM s in source Blood by data Automated count Hematocri 42.0 - % Normal No Apr 16 t [Volume 52.0 informati 2017 on in 11:33 AM Fraction] source of Blood data Hemoglobi 14.1 - g/dL Normal No Apr 16 n 18.0 inform2016 [Mass/vol on in 11:33 AM ume] in source Blood data Lymphocyt 0.7 - 4.5 K/mm3 Normal No Apr 16 es inform2016 [#/volume on in 11:33 AM ] in source Unspecifi data ed specimen by Automated count Lymphocyt 10 - 50 % Low No Apr 17 es inform2016 [#/volume on in 11:33 AM ] in source Unspecifi data ed specimen by Automated count Erythrocy 27 - 31.2 pg High No Apr 16 te mean inform2016 corpuscul on in 11:33 AM ar source hemoglobi data n [Entitic mass] Erythrocy 31.8 - g/dl Normal No Apr 17 te mean 35.4 2016 corpuscul on in 11:33 AM ar source hemoglobi data n concentra tion [Mass/vol ume] by Automated count Erythrocy 82.2 - fL Normal No Apr 17 te mean 97.8 2016 corpuscul on in 11:33 AM ar volume source [Entitic data volume] by Automated count Monocytes 0.1 - 1.0 K/mm3 Normal No Apr 172016 [#/volume on in 11:33 AM ] in source Blood by data Automated count Monocytes 1.7 - 9.3 % Normal No Apr 172016 leukocyte on in 11:33 AM s in source Blood by data Automated count Platelets 142 - 424 K/mm3 Normal No Apr 172016 [#/volume on in 11:33 AM ] in source Blood data Erythrocy 4.6 - 6.2 M/mm3 Normal No Apr 16 rosalia inform2016 [#/volume on in 11:33 AM ] in source Amniotic data fluid Erythrocy 11.5 - % Normal No Apr 17 te 17.5 inform2016 distribut on in 11:33 AM ion width source [Entitic data volume] by Automated count Leukocyte 4.8 - K/mm3 High No Apr 17 s 10.8 2016 [#/volume on in 11:33 AM ] in source Blood data Differential panel, method unspecified - Observa Value Referen Units Interpr Notes Date tion ce etation Range LYMPH 10 10 - 50 % Normal No Apr 17 inform2016 tion in 11:33 source AM data Monocytes 2 - 9 % Normal No Pantera 16 /100 informati 2016 leukocyte on in 11:33 AM s in source Blood by data Automated count Platele NORMAL No No No No Apr 17 ts informa informa informa informa 2016 [Presen tion in tion in tion in tion in 11:33 ce] in source source source source AM Blood data data data data by Light microsc opy Neutrophi 42 - 76 % High No Apr 17 ls inform2016 [#/volume on in 11:33 AM ] in source Blood by data Automated count Cells No #CELLS No No Apr 17 Counted informati informati informati 2016 Total [#] on in on in on in 11:33 AM in Blood source source source data data data INR in Blood by Coagulation assay Observa Value Referen Units Interpr Notes Date ti ce etation Range INR in 0.9 - 1.1 No High Apr 17 Blood by informati NOTIFICAT 2016 Coagulati on in ION 11:33 AM on assay source RESULT data Elizabeth [email or web address] ION INR RANGETHER APY FOR DVT, PE, ATRIAL FIB; 2.0 - 3.0PROPHY LAXIS FOR VTETHERAP Y FOR MECHANICA L HEART 2.5 - 3.5VALVE; PREVENTIO N OF SYSTEMICE MBOLISM SECONDARY TO AMI Prothromb 9.4 - SECONDS High Apr 17 in time 11.8 NOTIFICA2016 (PT) in ION 11:33 AM Platelet RESULT poor 04/17 plasma by 1204 Rodney Alonzo Coagulati oey on assay Meka Basic metabolic panel in Blood Observa Value Referen Units Interpr Notes Date ti ce etation Range Urea 7 - 18 mg/dL High No Apr 17 nitrogen informati 2016 [Mass/vol on in 11:33 AM ume] in source Serum or data Plasma Calcium 8.5 - mg/dL Normal No Apr 17 [Mass/vol 10.1 informati 2016 ume] in on in 11:33 AM Serum or source Plasma data Chloride 98 - 107 mmoL/L Normal No Apr 17 [Moles/vo informati 2016 lume] in on in 11:33 AM Serum or source Plasma data Carbon 21.0 - mmoL/L Normal No Apr 17 dioxide, 32.0 informati 2016 total on in 11:33 AM [Moles/vo source lume] in data Serum or Plasma Creatinin 0.70 - mg/dL High No Apr 17 e 1.30 informati 2017 [Mass/vol on in 11:33 AM ume] in source Serum or data Plasma Estimated >60 ML/MIN No REFERENCE Apr 17 informati RANGE: 2017 glomerula on in >60 11:33 AM r source ML/MIN/1. filtratio data 73 SQUARE n rate METERSIf (GF this patient is -A merican, then multiply theresult by 1.210. Glucose 74 - 106 mg/dL High No Apr 17 [Mass/vol informati 2017 ume] in on in 11:33 AM Serum or source Plasma data Potassium 3.5 - 5.1 mmoL/L Normal No Apr 17 informati 2016 [Moles/vo on in 11:33 AM lume] in source Serum or data Plasma Sodium 136 - 145 mmoL/L Normal No Apr 17 [Moles/vo informati 2017 lume] in on in 11:33 AM Serum or source Plasma data
--- OUTSIDE RECORDS SUMMARY | 2017-09-03 00:13 | External Medical Summary Rpt ---
[...] Serum or Plasma RESU LTS CALLED TO: [facility] 04/18/17 0716 [place] Sodium 136 - 145 mmoL/L Normal [...]
[2017-09-03 00:32] LABS: BUN 13 mg/dL (7-18); GFR (ESTIMATED) 64 ML/MIN (>60)
--- NOTE | 2017-09-03 01:11 | Emergency Room Report ---
History of Present Illness Time Seen by [email or web address] Presenting Problem in Triage Pt arrived:Wheelchair Presenting Problem:PT C/O MIDLINE STOMACH PAIN. 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 N Clinical Suspician of Infection? N Mental Status: 2 - Mildly Altered Sepsis Risk:Low Sepsis Risk Have you (or family members/close friends) recently traveled outside the [place]? N If Yes, where/when: Have you had exposure to infectious disease within the past month? N TB? Other? Specify: Source patient, RN notes reviewed, family, old records Exam Limitations dementia Comment pt with upper abd pain with nausea and vomiting - no fever or trauma - had recent card cath - report reviewed - Cardiac Chest Pain Chest pain indicative of cardiac No Timing/Duration this evening Severity moderate ALLERGIES Coded Allergies: No Known Allergies (11/20/15) Home Medications Active Scripts Device (Bed, Hospital) 1 UNIT XX UD #1 DEV Prov: 02/10/17 Device (Nebulizer, Compressor) 1 UNIT XX UD #1 DEV Prov: 02/10/17 ALBUTEROL SULFATE (Accuneb) 1.25 MG INH TID #90 NEB Ref 2 Prov: 02/10/17 Ipratropium [place] (Ipratropium 0.5MG Neb Soln) 0.5 MG INH TID #90 NEB Ref 1 Prov: 02/10/17 Reported Medications Metoprolol Tartrate (Metoprolol 100MG) 100 MG PO BID Isosorbide Mononitrate (Isosorbide Mononitrate ER) 30 MG PO DAILY Furosemide (Furosemide 40MG) 40 MG PO DAILY Pravastatin Sodium (Pravastatin 20MG) 60 MG PO DAILY Rivaroxaban (Xarelto) 15 MG PO DAILY Melatonin 10 MG SL NIGHT ONLY History Medical History General CAD? No Angina: No PA: No Hypertension? Yes Hyperlipidemia? Yes CHF? Yes DVT? No PE? No COPD? No Asthma? No Anemia? No GERD? No Gastric ulcers? No GI Bleed? No Hernia? No Thyroid Problems? No Hypothyroidism? No CVA? Yes Seizures? No Diabetes? No Renal Insuffiency? No End Stage Renal Disease? No UTI? No Stones? No BPH? No GB Disease: No Nephritic Syndrome? No Asplenia? No Hepatitis? No Sickle Cell Disease? No Arthritis? No Migraines? No Cataracts? No Glaucoma? No MRSA? No HIV? No TB? No Anxiety? No Depression? No Cancer? Yes Site: PROSTATE More? Yes Additional hx: ATRIAL FIB, DEMENTIA, ALZHEIMERS Immunization Hx DT/Tetanus Unknown Flu Refused Pneumonia Refuses Surgical Hx Previous Surgery?Y PROSTATECTOMY Family History Family Hx Diabetes No CAD No Hypertension Yes Hyperlipidemia No Cancer Yes TB No Social History Smoking Hx Smoker: Never Smoker Tobacco: No Type Chew Packs/day N/A Are you/the child exposed to second-hand smoke: Yes Alcohol Alcohol: No Drugs none Review of Systems All Other Systems Reviewed and Negative Constitutional denies chills Eyes denies blurred vision ENT denies: ear pain. Respiratory denies cough, denies shortness of breath, denies wheezing Cardiovascular denies chest pain, denies palpitations, denies syncope Gastrointestinal see HPI, abdominal pain, nausea, vomiting Genitourinary denies: dysuria, frequency, hesitancy, hematuria. Musculoskeletal denies back pain, denies joint pain, denies joint swelling, denies neck pain Skin denies rash Psychiatric/Neurological denies seizure Physical Exam Vital Signs Vital Signs Date Time Temp Pulse Resp B/P Pulse O2 O2 Flow FiO2 Ox Delivery Rate 09/02 2345 97.3 86 20 126/82 95 - WBC >12,000 or <4,000 or 10% bands? 2 or more SIRS Criteria Met? B/P:126/82 MAP:96 Creatinine >2.0? UA output<0.5ml/kg/hr for 2 hrs? Platelet count >100,000? Lactate >2.0mmol/1? INR >1.2 or PTT > than 60 sec? Evidence of Organ Dysfunction? Provider documented clinical suspician of infection? N Sepsis Criteria Count: 1 Sepsis Risk: Low Sepsis Risk General Appearance no apparent distress Eye Exam - bilateral eye PERRL, bilateral eye EOMI Ear, Nose, Throat normal ENT inspection Neck supple Respiratory Status No: respiratory distress. Lung Sounds bilateral: decreased breath sounds. 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 No Results/Orders Laboratory Tests 09/03/17 0008: Lactic Acid 1.7 09/03/17 0000: Sodium 138, Potassium 2.9 *L, Chloride 103, Carbon Dioxide 31, BUN 13, Creatinine 1.1, Estimated Creat Clear 56, Estimated GFR (MDRD) 64, Glucose 131 H, Calcium 8.4 L, Total Bilirubin 0.7, AST 16, ALT 17, Alkaline Phosphatase 95, Creatine Kinase 24 L, CK-MB (CK-2) Rel Index 2.1, CK and CKMB Interp < 0.5, Troponin I 0.03, Total Protein 6.6, Albumin 2.8 L, Globulin 3.8 H, Albumin/ Globulin Ratio 0.7 L, Amylase 56, Lipase 191, WBC 10.7, RBC 4.35 L, Hgb 13.0 L, Hct 40.9 L, MCV 94.0, RDW 14.5, Plt Count 255, MPV 8.1, Gran % 81.9 H, Gran # 8.8 H, Lymphocytes % 8.4 L, Monocytes % 4.2, Eosinophils % 5.1, Basophils % 0.4, Lymphocytes # 0.9, Monocytes # 0.5, Eosinophils # 0.6 H, Basophils # 0.0, PUBS MCHC 31.7 L, MCH 29.8 Current Medication Orders Sig/Joseph Start time Last Medication Dose Route Stop Time Status Admin Morphine Sulfate 2 MG ONCE ONE 09/03 130 DC 09/03 IV 09/03 131 014 Promethazine HCl 12.5 MG ONCE ONE 09/03 130 DC 09/03 IV 09/03 131 014 Sodium Chloride 25 ML ONCE ONE 09/03 130 DC IV 09/03 144 Sodium Chloride 10 ML PRN PRN 09/03 15 AC IV 09/04 0002 Orders Procedure Date/time Status DIET-NOTHING BY MOUTH 09/03 B Active Decision to admit 09/[address] ABD & PELVIS W/O CONTRAST 09/037 Active LACTIC ACID 09/[address] ABD/PELVIS REQ 09/03 3 Complete CHEST-AP VIEW ONLY 09/03 3 Active IV SALINE LOCK 09/03 3 Active CULTURE, BLOOD 09/03 3 Active LIPASE 09/03 3 Complete CBC WITH AUTO DIFF 09/03 3 Complete CARDIAC ENZYMES 09/03 3 Complete CHEM 12 PROFILE 09/03 3 Complete AMYLASE 09/03 3 Complete XRAY/CT/US XRAY/CT/US 1 XRAY chest XR interpretation by reviewed by me Xray Results abnormal (lll chronic) XRAY/CT/US 2 CT abdomen, pelvis CT interpretation by discussed w/radiologist Time results known: 0128 CT Results abnormal (see report) Departure Departure Time of Disposition 0122 Disposition Still a Patient Clinical Impression Primary Impression: Cholelithiasis Qualifiers: Cholelithiasis location: gallbladder Cholecystitis presence: without cholecystitis Biliary obstruction: without biliary obstruction Qualified Code: K80.20 - Calculus of gallbladder without cholecystitis without obstruction Secondary Impressions: Hypokalemia Condition STABLE Referrals Negro MARKS,Nestor Rowan (Family) discussed with dr roselia COLON [place] [address]
--- OUTSIDE RECORDS SUMMARY | 2017-09-03 01:43 | External Medical Summary Rpt | CCD ---
Author Author , MCKENNA Organization MCKENNA Address Unknown Phone [email or web address] Purpose Continuity of Care Document - 04-17-2017 through 2016 Problems Code Diagnosis DOS Provider Status 401.9 E86.0 DEHYDRATION I48.91 UNSPECIFIED ATRIAL FIBRILLATIO N J18.9 PNEUMONIA, UNSPECIFIED ORGANISM J20.9 ACUTE BRONCHITIS, UNSPECIFIED J42 Unspecified chronic bronchitis J96.21 Acute and chronic respiratory failure with hypoxia K80.20 CALCULUS OF GALLBLADDER W/O CHOLECYSTIT IS W/O OBSTRUCTION R06.00 DYSPNEA, UNSPECIFIED R06.02 SHORTNESS OF BREATH R07.9 CHEST PAIN, UNSPECIFIED R09.02 Hypoxemia R10.13 EPIGASTRIC PAIN R13.11 Dysphagia, oral phase R23.3 SPONTANEOUS ECCHYMOSES R42 DIZZINESS AND GIDDINESS R55 SYNCOPE AND COLLAPSE R79.1 ABNORMAL COAGULATION PROFILE S00.83XA CONTUSION OF OTHER PART OF HEAD, INITIAL ENCOUNTER Z74.09 Other reduced mobility Z79.899 OTHER RN PRIOR AUTHORIZATION (CURRENT) DRUG THERAPY Results Labs Lab Lab Date Result Refere Interp Status Commen Order Detail nces retati t Range on Blood lactic acid measurement (moles/vol (09-03-2017 00:08) Blood = 1.7 0.4-2.0 complet lactic 017 mmol/L ed acid 00:08 measure ment (moles/ vol Amylase ser/plas (09-03-2017) Amylase = 56 25-115 complet 017 U/L ed ser/raine s Cardiac enzymes (09-03-2017) Serum = 2.1 0-4.0 complet or 017 U/L ed plasma creatin e kinase MB (CK-M Serum < 0.5 0.0-3.6 complet or 017 ng/mL ed plasma creatin e kinase MB measu Serum = 24 39-308 complet or 017 U/L ed plasma creatin e kinase measure m Serum = 0.03 0.00-0. complet or 017 ng/mL 06 ed plasma troponi n i.cardi ac measu Comprehensive metabolic panel (09-03-2017) Serum = 0.7 1.1-1.8 complet or 017 ed plasma albumin /globul in mass ra Serum = 2.8 3.4-5.0 complet or 017 gm/dL ed plasma albumin measure ment (mas Serum = 95 46-116 complet or 017 U/L ed plasma alkalin e phospha tase serenity Serum = 0.7 0.2-1.0 complet or 017 mg/dL ed plasma total bilirub in measure m Serum = 13 7-18 complet or 017 mg/dL ed plasma urea nitroge n measure men Serum = 8.4 8.5-10. complet or 017 mg/dL 1 ed plasma calcium measure ment (mas Serum = 103 98-107 complet or 017 mmoL/L ed plasma chlorid e measure ment (mo Carbon = 31 21.0-32 complet dioxide 017 mmoL/L .0 ed measure ment Serum = 1.1 0.70-1. complet or 017 mg/dL 30 ed plasma creatin ine measure ment ( Estimat = 56 50-200 complet ion of 017 ML/MIN ed creatin ine renal clearan ce Estimat = 64 >60 complet ed 017 ML/MIN ed glomeru lar filtrat ion rate (GF Serum = 3.8 1.3-3.2 complet globuli 017 gm/dL ed n measure ment (mass/v olume) Serum = 131 74-106 complet or 017 mg/dL ed plasma glucose measure ment (mas Serum = 2.9 3.5-5.1 complet potassi 017 mmoL/L ed um measure ment Serum = 138 136-145 complet sodium 017 mmoL/L ed measure ment Serum = 16 15-37 complet or 017 U/L ed plasma asparta te aminotr ansfera ALT = 17 12-78 complet (SGPT) 017 U/L ed ser/raine s Protein = 6.6 6.4-8.2 complet total 017 gm/dL ed ser/raine s Lipase measurement (09-03-2017) Lipase = 191 73-393 complet measure 017 U/L ed ment CBC w auto diff (09-03-2017) Blood = 10.7 4.8-10. complet leukocy 017 K/MM3 8 ed rosalia count (number /volume ) Automat = 14.5 11.5-17 complet ed 017 % .5 ed erythro cyte distrib ution width Red = 4.35 4.6-6.2 complet blood 017 M/mm3 ed cell count Blood = 255 142-424 complet platele 017 K/mm3 ed t count Automat = 8.1 7.4-10. complet ed 017 fl 4 ed blood platele t mean volume serenity [place] % = 4.2 % 1.7-9.3 complet 017 ed Absolut = 0.5 0.1-1.0 complet e 017 K/mm3 ed monocyt e count Automat = 94.0 82.2-97 complet ed 017 fl .8 ed erythro cyte mean corpusc ular v Automat = 31.7 31.8-35 complet ed 017 g/dl .4 ed erythro cyte mean corpusc ular h Mean = 29.8 27-31.2 complet corpusc 017 pg ed ular hemoglo bin (MCH) determ Lymphoc = 8.4 % 10-50 complet yte 017 ed count, blood, automat ed Absolut = 0.9 0.7-4.5 complet e 017 K/mm3 ed lymphoc yte count Blood = 13.0 14.1-18 complet hemoglo 017 g/dL .0 ed bin measure ment (mass/v olum Blood = 40.9 42.0-52 complet hematoc 017 % .0 ed rit (volume fractio n) Granulo = 81.9 37.0-80 complet cyte 017 % .0 ed percent age Blood = 8.8 1.3-8.0 complet granulo 017 K/mm3 ed cytes automat ed count (numb Automat = 5.1 % 0.1-12. complet ed 017 0 ed blood eosinop hils/10 0 leukocy t Automat = 0.6 0.0-0.4 complet ed 017 K/mm3 ed blood eosinop hil count Baso % = 0.4 % 0.1-2.0 complet 017 ed Automat = 0.0 0-0.2 complet ed 017 K/MM3 ed blood basophi l count (count/ vo Basic metabolic panel (08-26-2017 07:45) Serum 08-26-2 = 140 136-145 complet sodium 017 mmoL/L ed measure 07:45 ment Serum 2 = 2.7 3.5-5.1 complet potassi 017 mmoL/L ed um 07:45 measure ment Serum 2 = 100 74-106 complet or 017 mg/dL ed plasma 07:45 glucose measure ment (mas Estimat 2 = 53 >60 complet ed 017 ML/MIN ed glomeru 07:45 lar filtrat ion rate (GF Serum 2 = 1.3 0.70-1. complet or 017 mg/dL 30 ed plasma 07:45 creatin ine measure ment ( Carbon 2 = 35 21.0-32 complet dioxide 017 mmoL/L .0 ed 07:45 measure ment Serum 2 = 102 98-107 complet or 017 mmoL/L ed plasma 07:45 chlorid e measure ment (mo Serum 08-26-2 = 8.2 8.5-10. complet or 017 mg/dL 1 ed plasma 07:45 calcium measure ment (mas Serum 08-26-2 = 24 7-18 complet or 017 mg/dL ed plasma 07:45 urea nitroge n measure men CBC w auto diff (08-26-2017 07:45) Red 08-26-2 = 4.42 4.6-6.2 complet blood 017 M/mm3 ed cell 07:45 count Blood 2 = 149 142-424 complet platele 017 K/mm3 ed t count 07:45 Automat = 9.5 7.4-10. complet ed 017 fl 4 ed blood 07:45 platele t mean volume serenity [place] % = 8.9 % 1.7-9.3 complet 017 [...] 07:45 eosinop hils/10 0 leukocy t Automat 2 = 0.6 0.0-0.4 complet ed 017 K/mm3 ed blood 07:45 eosinop hil count Baso % 2 = 0.5 % 0.1-2.0 complet 017 ed 07:45 Automat 2 = 0.0 0-0.2 complet ed 017 K/MM3 [...] 017 mg/dL ed SerPl-m 04:19 Cnc ALP 80 U/L 25-100 complet SerPl-c 017 ed Cnc 04:19 AST 21 U/L 0-33 complet SerPl-c 017 ed Cnc 04:19 ALT 15 U/L 7-40 complet SerPl w 017 ed 04:19 P-5'-P- cCnc Albumin 3.70 3.20-4. complet 017 g/dL 80 ed SerPl-m 04:19 Cnc Prot 7.5 5.7-8.2 complet SerPl-m 017 g/dL ed Cnc 04:19 Calcium 08-19- 8.8 8.7-10. complet 017 mg/dL 4 ed XXX-sCn 04:19 c CO2 28.0 20.0-31 complet SerPl-s 017 mmol/L .0 ed Cnc 04:19 Chlorid 105 99-109 complet e 017 mmol/L ed SerPl-s 04:19 Cnc Potassi 08-19- 3.6 3.5-5.5 complet um 017 mmol/L ed Bld-sCn 04:19 c Sodium 08-19- 141 132-146 complet Bld-sCn 017 mmol/L ed c 04:19 Creat 08-19- 0.90 0.60-1. complet Bld-mCn 017 mg/dL 30 ed c 04:19 BUN 08-19-2 9 mg/dL 9-23 complet Bld-mCn 017 ed c 04:19 Glucose 08-19- 179 70-100 complet 017 mg/dL ed Bld-mCn 04:19 c CBC W Diff pnl,unspecified Bld (08-19-2017 04:19) Lymphoc 08-19- 9.9 % 24.0-44 complet ytes/le 017 .0 ed uk NFr 04:19 Bld Auto Neutrop 88.9 % 41.0-71 complet hils/le 017 .0 ed uk NFr 04:19 Bld Auto Platele 195 150-450 complet t # Bld 017 10*3/mm ed Auto 04:19 3 PMV Bld 11.4 fL 6.0-12. complet Auto 017 0 ed 04:19 RDW RBC 08-19- 53.2 fl 37.0-54 complet Auto 017 .0 ed 04:19 RDW RBC 08-19- 15.4 % 11.3-14 complet 017 .5 ed Auto-Rt 04:19 o MCHC 08-19-2 31.6 32.0-36 complet RBC 017 g/dL .0 ed Auto-mC 04:19 nc MCH RBC 08-19-2 29.9 pg 27.0-31 complet Qn 017 .0 ed Auto 04:19 MCV RBC 08-19-2 94.7 fL 80.0-99 complet Auto 017 .0 ed 04:19 Hct VFr 08-19-2 43.1 % 38.9-50 complet Bld 017 .9 ed Auto 04:19 Hgb 18-2 13.6 13.1-17 complet Bld-mCn 017 g/dL .5 [...] Auto Mg Ionized SerPl-mCnc (08-18-2017 14:25) Magnesi 10--2 1.9 1.3-2.7 complet um 017 mg/dL ed SerPl-m 14:25 Cnc Troponin T SerPl Ql (08-18-2017 12:28) Troponi 10-17-2 0.04 0.00-0. complet n I 017 ng/mL 07 ed SerPl-m 12:28 Cnc Troponin T SerPl Ql (08-18-2017 10:18) Troponi 08-18- 0.05 0.00-0. complet n I 017 ng/mL 07 ed SerPl-m 10:18 Cnc CBC W Diff pnl,unspecified Bld (08-18-2017 10:17) Basophi 08-18- 0.6 % 0.0-1.0 complet ls/leuk 017 ed NFr 10:17 Bld Auto WBC 08-18- 6.77 3.50-10 complet nRBC 017 10*3/mm .80 ed cor # 10:17 3 Bld RBC # 08-18- 5.16 4.20-5. complet Bld 017 10*6/mm 76 ed Auto 10:17 3 Hgb 16.0 13.1-17 complet Bld-mCn 017 g/dL .5 ed c 10:17 Hct VFr 49.3 % 38.9-50 complet Bld 017 .9 ed Auto 10:17 MCV RBC 95.5 fL 80.0-99 complet Auto 017 .0 ed 10:17 MCH RBC 31.0 pg 27.0-31 complet Qn 017 .0 ed Auto 10:17 MCHC 08-18- 32.5 32.0-36 complet RBC 017 g/dL .0 ed Auto-mC 10:17 nc RDW RBC 08-18- 15.4 % 11.3-14 complet 017 .5 ed Auto-Rt 10:17 o RDW RBC 08-18- 54.2 fl 37.0-54 complet Auto 017 .0 ed 10:17 PMV Bld 11.2 fL 6.0-12. complet Auto 017 0 ed 10:17 Platele 08-18- 202 150-450 complet t # Bld 017 10*3/mm ed Auto 10:17 3 Neutrop 08-18- 72.5 % 41.0-71 complet hils/le 017 .0 ed uk NFr 10:17 Bld Auto Lymphoc 08-18- 13.4 % 24.0-44 complet ytes/le 017 .0 ed uk NFr 10:17 Bld Auto Monocyt 6.8 % 0.0-12. complet es/leuk 017 0 ed NFr 10:17 Bld Auto Eosinop 08-18- 6.6 % 0.0-3.0 complet hil/luke 017 ed k NFr 10:17 Bld Auto Imm 08-18-2 0.1 % 0.0-0.6 complet Granulo 017 ed cytes/l 10:17 euk NFr Bld Neutrop 08-18- 4.90 1.50-8. complet hils # 017 10*3/mm 30 ed Bld 10:17 3 Auto Lymphoc 08-18- 0.91 0.60-4. complet ytes # 017 10*3/mm 80 ed Bld 10:17 3 Auto Monocyt 08-18- 0.46 0.00-1. complet es # 017 10*3/mm 00 ed Bld 10:17 3 Auto Eosinop 08-18- 0.45 0.00-0. complet hil # 017 10*3/mm 30 ed Bld 10:17 3 Auto Basophi 0.04 0.00-0. complet ls # 017 10*3/mm 20 ed Bld 10:17 3 Auto Imm 08-18-2 0.01 0.00-0. complet Granulo 017 10*3/mm 03 ed cytes # 10:17 3 Bld Lactate SerPl-sCnc (08-18-2017 10:17) D-Lacta 1.6 0.5-2.0 complet te 017 mmol/L ed SerPl-s 10:17 Cnc CK SerPl-cCnc (08-18-2017 10:17) CK 64 U/L 26-174 complet SerPl-c 017 ed Cnc 10:17 BNP SerPl-mCnc (08-18-2017 10:17) BNP 269.0 0.0-100 [...] complet 017 mg/dL ed Bld-mCn 10:17 c Potassium SerPl-sCnc (07-21-2017 18:47) Potassi -19-2 3.7 3.5-5.5 complet um 017 mmol/L ed Bld-sCn 18:47 c CBC W Diff pnl,unspecified Bld (07-21-2017 05:26) Imm -19-2 0.02 0.00-0. complet Granulo 017 10*3/mm 03 ed cytes # 05:26 3 Bld Basophi -19-2 0.03 0.00-0. complet ls # 017 10*3/mm 20 ed Bld 05:26 3 Auto Eosinop -19-2 0.62 0.00-0. complet hil # 017 10*3/mm 30 ed Bld 05:26 3 Auto Monocyt 19-2 0.90 0.00-1. complet es # 017 10*3/mm 00 ed Bld 05:26 3 Auto Lymphoc -19-2 1.63 0.60-4. complet ytes # 017 10*3/mm 80 ed Bld 05:26 3 Auto Neutrop 19-2 4.08 1.50-8. complet hils # 017 10*3/mm 30 ed Bld 05:26 3 Auto Imm -19-2 0.3 % 0.0-0.6 complet Granulo 017 ed cytes/l 05:26 euk NFr Bld Basophi -19-2 0.4 % 0.0-1.0 complet ls/leuk 017 ed NFr 05:26 Bld Auto Eosinop -19-2 8.5 % 0.0-3.0 complet hil/luke 017 ed k NFr 05:26 Bld Auto Monocyt -19-2 12.4 % 0.0-12. complet es/leuk 017 0 ed NFr 05:26 Bld Auto Lymphoc -19-2 22.4 % 24.0-44 complet ytes/le 017 .0 ed uk NFr 05:26 Bld Auto Neutrop -19-2 56.0 % 41.0-71 complet hils/le 017 .0 ed uk NFr 05:26 Bld Auto Platele 07-21-2 203 150-450 complet t # Bld 017 10*3/mm ed Auto 05:26 3 PMV Bld 09-19-2 11.0 fL 6.0-12. complet Auto 017 0 ed 05:26 RDW RBC 57.4 fl 37.0-54 complet Auto 017 .0 ed 05:26 RDW RBC 16.8 % 11.3-14 complet 017 .5 ed Auto-Rt 05:26 o MCHC 32.4 32.0-36 complet RBC 017 g/dL .0 ed Auto-mC 05:26 nc MCH RBC 30.2 pg 27.0-31 complet Qn 017 .0 ed Auto 05:26 MCV RBC 93.2 fL 80.0-99 complet Auto 017 .0 ed 05:26 Hct VFr 35.8 % 38.9-50 complet Bld 017 .9 ed Auto 05:26 Hgb 11.6 13.1-17 complet Bld-mCn 017 g/dL .5 ed c 05:26 RBC # 3.84 4.20-5. complet Bld 017 10*6/mm 76 ed Auto 05:26 3 WBC 7.28 3.50-10 complet nRBC 017 10*3/mm .80 ed cor # 05:26 3 Bld Bas Metab 2000 Pnl SerPl (07-21-2017 05:26) [...] 017 mmol/L ed Bld-sCn 05:26 c Sodium 07-21- 139 132-146 complet Bld-sCn 017 mmol/L ed c 05:26 Creat 07-21-2 0.80 0.60-1. complet Bld-mCn 017 mg/dL 30 ed c 05:26 BUN 07-21-2 8 mg/dL 9-23 complet Bld-mCn 017 ed c 05:26 Glucose 07-21- 89 70-100 complet 017 mg/dL ed Bld-mCn 05:26 c Potassium SerPl-sCnc (07-20-2017 08:53) Potassi 3.8 3.5-5.5 complet um 017 mmol/L ed Bld-sCn 08:53 c BNP SerPl-mCnc (07-20-2017 05:34) BNP 07-20- 240.0 0.0-100 complet SerPl-m 017 pg/mL .0 ed Cnc 05:34 Bas Metab 2000 Pnl SerPl (07-20-2017 05:34) BUN 07-20- 11 9-23 complet Bld-mCn 017 mg/dL ed c 05:34 Glucose 88 70-100 complet 017 mg/dL ed Bld-mCn 05:34 c Anion 4.0 3.0-11. complet Gap3 017 mmol/L 0 ed SerPl-s 05:34 Cnc BUN/Cre 12.2 7.0-25. complet at 017 0 ed SerPl 05:34 GFR/BSA 81 >60 complet .pred 017 mL/min/ ed SerPl 05:34 1.73 MDRD-Ar VRat Calcium 8.3 8.7-10. complet 017 mg/dL 4 ed XXX-sCn 05:34 c CO2 07-20- 31.0 20.0-31 complet SerPl-s 017 mmol/L .0 ed Cnc 05:34 Chlorid 104 99-109 complet e 017 mmol/L ed SerPl-s 05:34 Cnc Potassi 3.3 3.5-5.5 complet um 017 mmol/L ed Bld-sCn 05:34 c Sodium 07-20-2 139 132-146 complet Bld-sCn 017 mmol/L ed c 05:34 Creat -18-2 0.90 0.60-1. complet Bld-mCn 017 mg/dL 30 ed c 05:34 CBC (hemogram) Bld Auto (07-20-2017 05:34) Platele 18-2 219 150-450 complet t # Bld 017 10*3/mm ed Auto 05:34 3 PMV Bld 07-20-2 11.5 fL 6.0-12. complet Auto 017 0 ed 05:34 RDW RBC 18-2 57.8 fl 37.0-54 complet Auto 017 .0 ed 05:34 RDW RBC 18-2 16.9 % 11.3-14 complet 017 .5 ed Auto-Rt 05:34 o MCHC 07-20-2 32.4 32.0-36 complet RBC 017 g/dL .0 ed Auto-mC 05:34 nc MCH RBC 07-20-2 30.1 pg 27.0-31 complet Qn 017 .0 ed Auto 05:34 MCV RBC 07-20-2 93.0 fL 80.0-99 complet Auto 017 .0 ed 05:34 Hct VFr 07-20-2 34.3 % 38.9-50 complet Bld 017 .9 ed Auto 05:34 Hgb 18-2 11.1 13.1-17 complet Bld-mCn 017 g/dL .5 ed c 05:34 RBC # 18-2 3.69 4.20-5. complet Bld 017 10*6/mm 76 ed Auto 05:34 3 WBC 07-20-2 9.74 3.50-10 complet nRBC 017 10*3/mm .80 ed cor # 05:34 3 Bld Hgb A1c Bld (07-20-2017 05:34) Hgb A1c 07-20-2 5.00 % 4.80-5. complet MFr 017 60 ed Bld 05:34 UA Dipstick Pnl Ur (07-19-2017 19:34) Urobili 07-19- 1.0 0.2 - complet nogen 017 E.U./dL 1.0 ed Ur Ql 19:34 E.U./dL Strip Nitrite [id number] Negativ complet Ur Ql 017 09 e ed Strip 19:34 Negativ e SCT Leukocy [id number] Negativ complet te 017 09 e ed esteras 19:34 Negativ e Ur Ql e SCT Strip.a uto Prot Ur [id number] Negativ complet Ql 017 09 e ed Strip 19:34 Negativ e SCT Hgb Ur [id number] Negativ complet Ql 017 09 e ed Strip.a 19:34 Negativ uto e SCT Bilirub [id number] Negativ complet Ur Ql 017 09 e ed Strip 19:34 Negativ e SCT Ketones [id number] Negativ complet Ur Ql 017 09 e ed Strip 19:34 Negativ e SCT Glucose [id number] Negativ complet Ur 017 06 e ed Strip-m 19:34 Trace Cnc SCT Sp Gr 1.012 1.001-1 complet Ur 017 .030 ed Strip 19:34 pH Ur 5.5 5.0-8.0 complet Strip.a 017 ed uto 19:34 Clarity [id number] Clear complet Ur 017 01 ed 19:34 Clear SCT Color [id number] Yellow, complet Ur 017 09 Straw ed [...] 017 pH .450 ed 19:05 units Arteria [id number] complet l 017 09 Not ed patency 19:05 applica Wrist ble SCT a Bdy Arteria complet site 017 l: left ed 19:05 radial Horowit 28 % complet z index 017 ed 19:05 Bld+IhG -Rto Bacteria Bld Cult (07-19-2017 18:50) Bacteri No complet a XXX 017 growth ed Aerobe 18:50 at 5 Cult days Bacteria Bld Cult (07-19-2017 18:50) Bacteri No active a XXX 017 growth Aerobe 18:50 at 3 Cult days Lactate SerPl-sCnc (07-19-2017 18:50) D-Lacta 1.7 0.5-2.0 complet te 017 mmol/L ed SerPl-s 18:50 Cnc Troponin T SerPl Ql (07-19-2017 18:13) Troponi 0.03 0.00-0. complet n I 017 ng/mL 07 ed SerPl-m 18:13 Cnc Bacteria Bld Cult (07-19-2017 17:55) Bacteri No complet a XXX 017 growth ed Aerobe 17:55 at 5 Cult days Bacteria Bld Cult (07-19-2017 17:55) Bacteri No active a XXX 017 growth Aerobe 17:55 at 3 Cult days CBC W Diff pnl,unspecified Bld (07-19-2017 17:55) Imm 0.03 0.00-0. complet Granulo 017 10*3/mm 03 ed cytes # 17:55 3 Bld Basophi 09-17-2 0.03 0.00-0. complet ls # 017 10*3/mm 20 ed Bld 17:55 3 Auto Eosinop 17-2 0.15 0.00-0. complet hil # 017 10*3/mm 30 ed Bld 17:55 3 Auto Monocyt 17-2 1.33 0.00-1. complet es # 017 10*3/mm 00 ed Bld 17:55 3 Auto Lymphoc 17-2 0.74 0.60-4. complet ytes # 017 10*3/mm 80 ed Bld 17:55 3 Auto Neutrop 07-19-2 12.01 1.50-8. complet hils # 017 10*3/mm 30 ed Bld 17:55 3 Auto Imm 07-19-2 0.2 % 0.0-0.6 complet Granulo 017 ed cytes/l 17:55 euk NFr Bld Basophi 07-19-2 0.2 % 0.0-1.0 complet ls/leuk 017 ed NFr 17:55 Bld Auto Eosinop 07-19-2 1.0 % 0.0-3.0 complet hil/luke 017 ed k NFr 17:55 Bld Auto Monocyt 07-19-2 9.3 % 0.0-12. complet es/leuk 017 0 ed NFr 17:55 Bld Auto Lymphoc 07-19-2 5.2 % 24.0-44 complet ytes/le 017 .0 ed uk NFr 17:55 Bld Auto Neutrop 07-19- 84.1 % 41.0-71 complet hils/le 017 .0 ed uk NFr 17:55 Bld Auto Platele 07-19- 218 150-450 complet t # Bld 017 10*3/mm ed Auto 17:55 3 PMV Bld 07-19- 10.7 fL 6.0-12. complet Auto 017 0 ed 17:55 RDW RBC 07-19- 57.4 fl 37.0-54 complet Auto 017 .0 ed 17:55 RDW RBC 07-19- 16.7 % 11.3-14 complet 017 .5 ed [...] g/dL .5 ed c 17:55 RBC # 17- 4.33 4.20-5. complet Bld 017 10*6/mm 76 ed Auto 17:55 3 WBC 14.29 3.50-10 complet nRBC 017 10*3/mm .80 ed cor # 17:55 3 Bld Comp Metab 1997 Pnl SerPl (07-19-2017 17:55) Anion 9.0 3.0-11. [...]
--- OUTSIDE RECORDS SUMMARY | 2017-09-03 01:43 | External Medical Summary Rpt | CCD ---
Author Author , MCKENNA Organization MCKENNA Address Unknown Phone [email or web address] Purpose Continuity of Care Document - 04-17-2017 [...] ENCOUNTER Z74.09 Other reduced mobility Z79.899 OTHER FACE BOSS (CURRENT) DRUG THERAPY Results Labs Lab Lab [...] ed blood platele t mean volume serenity [place] % = 4.2 % 1.7-9.3 complet 017 [...] blood 07:45 platele t mean volume serenity [place] % = 8.9 % 1.7-9.3 complet 017 [...] ed Ur Ql 19:34 E.U./dL Strip Nitrite [id number] Negativ complet Ur Ql 017 09 e ed Strip 19:34 Negativ e SCT Leukocy [id number] Negativ complet te 017 09 e ed esteras 19:34 Negativ e Ur Ql e SCT Strip.a uto Prot Ur [id number] Negativ complet Ql 017 09 e ed Strip 19:34 Negativ e SCT Hgb Ur [id number] Negativ complet Ql 017 09 e ed Strip.a 19:34 Negativ uto e SCT Bilirub [id number] Negativ complet Ur Ql 017 09 e ed Strip 19:34 Negativ e SCT Ketones [id number] Negativ complet Ur Ql 017 09 e ed Strip 19:34 Negativ e SCT Glucose 7706336 Negativ complet Ur 017 06 e ed Strip-m 19:34 Trace Cnc SCT Sp Gr 1.012 1.001-1 complet Ur 017 .030 ed Strip 19:34 pH Ur 5.5 5.0-8.0 complet Strip.a 017 ed uto 19:34 Clarity [id number] Clear complet Ur 017 01 ed 19:34 Clear SCT Color [id number] Yellow, complet Ur 017 09 Straw ed [...] 017 pH .450 ed 19:05 units Arteria [id number] complet l 017 09 Not ed patency [...]
--- OUTSIDE RECORDS SUMMARY | 2017-09-03 01:44 | External Medical Summary Rpt | CCD ---
Demographics Preferred Language Spanish Marital Status Unknown Oriental Orthodox Affiliation Unknown Race Unknown Ethnic Group Unknown Author Author , MCKENNA ANDRES Address Unknown Phone [email or web address] Immunization Name Date Rout CVX Reac Dose Comm Prov Is Faci e tion ent ider Refu lity Give sed n Td 03-0 9 999 Hist H149 No H149 (servando 9-19 [facility] lt), 97 al Info adso rmat rbed ion - Sour ce Unsp ecif ied
--- OUTSIDE RECORDS SUMMARY | 2017-09-03 01:44 | External Medical Summary Rpt | CCD ---
Demographics Preferred Language Bulgarian Marital Status Unknown Mu-Ism Affiliation Unknown Race Unknown Ethnic Group Unknown Author Author , MCKENNA ANDRES Address Unknown Phone [email or web address] Immunization Name Date Rout CVX Reac Dose Comm Prov Is Faci e tion ent ider Refu lity Give sed n Td 03-0 9 999 Hist H149 No H149 (servando 9-19 [facility] lt), 97 al Info adso rmat rbed ion - Sour ce Unsp ecif ied
--- OUTSIDE RECORDS SUMMARY | 2017-09-03 01:45 | External Medical Summary Rpt ---
Author Author [facility] Talisha, [employer] Organization [employer] Address Unknown Phone Unavailable Results Lactate [Moles/volume] in Blood Observa Value Referen Units Interpr Notes Date tion ce etation Range Lactate 0.4 - 2.0 mmol/L Normal No Sep 03 [Moles/vo informati 2016 lume] in on in 12:08 AM Blood source data CBC W Auto Differential panel in Blood Observa Value Referen Units Interpr Notes Date ti ce etation Range Basophils 0 - 0.2 K/MM3 Normal No Sep 032016 [#/volume on in ] in source Blood by data Automated count Basophils 0.1 - 2.0 % Normal No Sep 03 /2016 leukocyte on in s in source Blood by data Automated count Eosinophi 0.0 - 0.4 K/mm3 High Sep 03 ls 2016 [#/volume on in ] in source Blood by data Automated count Eosinophi 0.1 - % Normal No Sep 03 ls/100 12.0 2016 leukocyte on in s in source Blood by data Automated count Granulocy 1.3 - 8.0 K/mm3 High No Sep 03 rosalia 2016 [#/volume on in ] in source Blood by data Automated count Granulocy 37.0 - % High No Sep 03 rosalia/100 80.0 2016 leukocyte on in s in source Blood by data Automated count Hematocri 42.0 - % Low Sep 03 t [Volume 52.0 2016 on in Fraction] source of Blood data Hemoglobi 14.1 - g/dL Low No Sep 03 n 18.0 2016 [Mass/vol on in ume] in source Blood data Lymphocyt 0.7 - 4.5 K/mm3 Normal No Sep 03 es 2016 [#/volume on in ] in source Unspecifi data ed specimen by Automated count Lymphocyt 10 - 50 % Low No Sep 03 es 2016 [#/volume on in ] in source Unspecifi data ed specimen by Automated count Erythrocy 27 - 31.2 pg Normal No Sep 2 te mean 2016 corpuscul on in ar source hemoglobi data n [Entitic mass] Erythrocy 31.8 - g/dl Low No Sep 03 te mean 35.4 2016 corpuscul on in ar source hemoglobi data n concentra tion [Mass/vol ume] by Automated count Erythrocy 82.2 - fl Normal No Sep 03 te mean 97.8 2016 corpuscul on in ar volume source [Entitic data volume] by Automated count Monocytes 0.1 - 1.0 K/mm3 Normal No Sep 032016 [#/volume on in ] in source Blood by data Automated count Monocytes 1.7 - 9.3 % Normal No Sep 2 /100 2016 leukocyte on in s in source Blood by data Automated count Platelet 7.4 - fl Normal No Sep 03 mean 10.4 2016 volume on in [Entitic source volume] data in Blood by Automated count Platelets 142 - 424 K/mm3 No Sep 03 informati informati 2016 [#/volume on in on in ] in source source Blood data data Erythrocy 4.6 - 6.2 M/mm3 Low No Sep 2 rosalia 2016 [#/volume on in ] in source Amniotic data fluid Erythrocy 11.5 - % Normal No Sep 03 te 17.5 2016 distribut on in ion width source [Entitic data volume] by Automated count Leukocyte 4.8 - K/MM3 Normal No Sep 03 s 10.8 2016 [#/volume on in ] in source Blood data Basic metabolic panel in Blood Observa Value Referen Units Interpr Notes Date tion ce etation Range Urea 7 - 18 mg/dL High No Aug 26 nitrogen informati 2016 7:45 [Mass/vol on in AM ume] in source Serum or data Plasma Calcium 8.5 - mg/dL Low No Aug 26 [Mass/vol 10.1 informati 2016 7:45 ume] in on in AM Serum or source Plasma data Chloride 98 - 107 mmoL/L Normal No Aug 26 [Moles/vo informati 2016 7:45 lume] in on in AM Serum or source Plasma data Carbon 21.0 - mmoL/L High No Aug 26 dioxide, 32.0 informati 2016 7:45 total on in AM [Moles/vo source lume] in data Serum or Plasma Creatinin 0.70 - mg/dL Normal No Aug 26 e 1.30 informati 2016 7:45 [Mass/vol on in AM ume] in source Serum or data Plasma Estimated >60 ML/MIN No REFERENCE Aug 26 informati RANGE: 2016 7:45 glomerula on in >60 AM r source ML/MIN/1. filtratio data 73 SQUARE n rate METERSIf (GF this patient is -A merican, then multiply theresult by 1.210. Glucose 74 - 106 mg/dL Normal No Aug 26 [Mass/vol informati 2016 7:45 ume] in on in AM Serum or source Plasma data Potassium 3.5 - 5.1 mmoL/L Low alert Aug 26 2016 7:45 [Moles/vo CRITICAL AM lume] in RESULTS Serum or Plasma RESU LTS CALLED TO: MOMO 08/26/17 0803 Rodney Alonzo Sodium 136 - 145 mmoL/L Normal No Aug 26 [Moles/vo informati 2017 7:45 lume] in on in AM Serum or source Plasma data CBC W Auto Differential panel in Blood Observa Value Referen Units Interpr Notes Date tion ce etation Range Basophils 0 - 0.2 K/MM3 Normal No Aug 26 informati 2016 7:45 [#/volume on in AM ] in source Blood by data Automated count Basophils 0.1 - 2.0 % Normal No Aug 26 informati 2016 7:45 leukocyte on in AM [...] - 1.0 K/mm3 Normal No Aug 26 informati 2016 7:45 [#/volume on in AM ] in source Blood by data Automated count Monocytes 1.7 - 9.3 % Normal No Aug 26 /100 informati 2016 7:45 leukocyte on in AM s in source Blood by data Automated count Platelet 7.4 - fl Normal No Aug 26 mean 10.4 informati 2017 7:45 volume on in AM [Entitic source volume] data in Blood by Automated count Platelets 142 - 424 K/mm3 No No Aug 26 informati informati 2017 7:45 [#/volume on in on in AM ] in source source Blood data data Erythrocy 4.6 - 6.2 M/mm3 Low No Aug 26 rosalia informati 2017 7:45 [#/volume on in AM ] in source Amniotic data fluid Erythrocy 11.5 - % Normal No Aug 26 te 17.5 informati 2016 7:45 distribut on in AM ion width source [Entitic data volume] by Automated count Leukocyte 4.8 - K/MM3 Normal No Aug 25 s 10.8 informati 2017 7:45 [#/volume on in AM ] in source Blood data Lactate [Moles/volume] in Blood Observa Value Referen Units Interpr Notes Date tion ce etation Range Lactate 0.4 - 2.0 mmol/L Normal No Sep 13 [Moles/vo informati 2016 2:53 lume] in on in PM Blood source data CBC W Auto Differential panel in Blood Observa Value Referen Units Interpr Notes Date tion ce etation Range Basophils 0 - 0.2 K/MM3 Normal No Sep 13 informati 2016 2:53 [#/volume on in PM ] in source Blood by data Automated count Basophils 0.1 - 2.0 % Normal No Sep 13 /100 informati [...] Normal No Sep 13 rosalia/100 80.0 informati 2016 2:53 leukocyte on in PM [...] 50 % Normal No Sep 13 es informati 2016 2:53 [#/volume on in PM ] in source Unspecifi data ed specimen by Automated count Erythrocy 27 - 31.2 pg Normal No Sep 13 te mean informati 2016 2:53 corpuscul on in PM ar source hemoglobi data n [Entitic mass] Erythrocy 31.8 - g/dl Low No Sep 13 te mean 35.4 inform2016 2:53 corpuscul on in PM ar source hemoglobi data n concentra tion [Mass/vol ume] by Automated count Erythrocy 82.2 - fl Normal No Sep 13 te mean 97.8 inform2016 2:53 corpuscul on in PM ar volume source [Entitic data volume] by Automated count Monocytes 0.1 - 1.0 K/mm3 Normal No Sep 13 inform2016 2:53 [#/volume on in PM ] in source Blood by data Automated count Monocytes 1.7 - 9.3 % Normal No Sep 13 /100 2016 2:53 leukocyte on in PM s in source Blood by data Automated count Platelet 7.4 - fl Normal No Sep 13 mean 10.4 inform2016 2:53 volume on in PM [Entitic source volume] data in Blood by Automated count Platelets 142 - 424 K/mm3 Normal No Sep 13 2016 2:53 [#/volume on in PM ] in source Blood data Erythrocy 4.6 - 6.2 M/mm3 Normal No Sep 13 rosalia 2016 2:53 [#/volume on in PM ] in source Amniotic data fluid Erythrocy 11.5 - % Normal No Sep 13 te 17.5 2016 2:53 distribut on in PM ion width source [Entitic data volume] by Automated count Leukocyte 4.8 - K/MM3 Normal No Sep 13 s 10.8 2016 2:53 [#/volume on in PM ] [...] Interpr Notes Date tion ce etation Range Thyroxine 5.93 - ug/dl Low No Jun 14 (T4) 13.13 2016 2:00 free on in PM index in source Serum or data Plasma Triiodoth 31 - 39 % Normal No Jun 14 yronine 2016 2:00 (T3) on in PM resin source uptake in data Serum or Plasma Thyroxine 4.7 - ug/dl Low No Jun 14 (T4) 13.3 2016 2:00 [Mass/vol on in PM ume] in source Serum or data Plasma Thyrotrop 0.358 - uIU/ml High No Jun 14 in 3.740 inform2016 2:00 [Units/vo on in PM lume] in source Serum or data Plasma CBC W Auto Differential panel in Blood Observa Value Referen Units Interpr Notes Date tion ce etation Range Basophils 0 - 0.2 K/MM3 Normal No Jun 14 2016 2:00 [#/volume [...] Granulocy 37.0 - % Normal No Jun 14 rosalia/100 80.0 inform2016 2:00 leukocyte on in PM s in source Blood by data Automated count Hematocri 42.0 - % Low No Jun 14 t [Volume 52.0 inform2016 2:00 on in PM Fraction] source of Blood data Hemoglobi 14.1 - g/dL Low No Jun 14 n 18.0 2016 2:00 [Mass/vol on in PM ume] in source Blood data Lymphocyt 0.7 - 4.5 K/mm3 Normal No Jun 14 es 2016 2:00 [#/volume on in PM ] in source Unspecifi data ed specimen by Automated count Lymphocyt 10 - 50 % Normal No Jun 14 es 2016 2:00 [#/volume on in PM ] in source Unspecifi data ed specimen by Automated count Erythrocy 27 - 31.2 pg Normal No Jun 14 te mean 2016 2:00 corpuscul on in PM ar [...] 0.1 - 1.0 K/mm3 Normal No Jun 152016 2:00 [#/volume on in PM ] in source Blood by data Automated count Monocytes 1.7 - 9.3 % Normal No Jun 14 /100 2016 2:00 leukocyte on in PM s in source Blood by data Automated count Platelet 7.4 - fl Normal No Jun 15 mean 10.4 2016 2:00 volume on in PM [Entitic source volume] data in Blood by Automated count Platelets 142 - 424 K/mm3 Normal No Jun 14 2016 2:00 [#/volume on in PM ] in source Blood data Erythrocy 4.6 - 6.2 M/mm3 Low No Jun 15 rosalia 2016 2:00 [#/volume on in PM ] in source Amniotic data fluid Erythrocy 11.5 - % Normal No Jun 15 te 17.5 2016 2:00 distribut on in PM ion width source [Entitic data volume] by Automated count Leukocyte 4.8 - K/MM3 Normal No Jun 14 s 10.8 2016 2:00 [#/volume on in PM ] in source Blood data Troponin I.cardiac [Mass/volume] in Serum or Plasma Observa Value Referen Units Interpr Notes Date tion ce etation Range Troponin 0.00 - ng/mL Normal No Jun 6 I.cardiac 0.06 2016 3:01 on in AM [Mass/vol source [...] Interpr Notes Date ti ce etation Range Amylase 25 - 115 U/L Normal No Jun 06 [Enzymati informati 2016 c on in 11:59 PM activity/ source volume] data in Serum or Plasma Lipase [Enzymatic activity/volume] in Serum or Plasma Observa Value Referen Units Interpr Notes Date ti ce etation Range Lipase 73 - 393 U/L Normal No Jun 06 [Enzymati informati 2016 c on in 11:59 PM activity/ source volume] data in Serum or Plasma Cardiac enzymes Observa Value Referen Units Interpr Notes ti ce etation Range Creatine 0 - 4.0 U/L Normal No Jun 06 kinase.MB informati 2016 /Creatine on in 11:59 PM source kinase.to data carole [Ratio] in Serum or Plasma Creatine 0.0 - 3.6 ng/mL Normal No Jun 06 kinase.MB informati 2016 on in [...] Low No Jun 06 lobulin informati informati 2017 [Mass on in on in 11:59 PM [...] mg/dL Normal No Jun 06 e 1.30 informati 2016 [Mass/vol on in 11:59 PM ume] in source Serum or data Plasma Creatinin 50 - 200 ML/MIN Normal No Jun 06 e renal informati 2016 clearance on in 11:59 PM source predicted data by Cockcroft -Gault formula Estimated >60 ML/MIN No REFERENCE Jun 06 informati RANGE: 2017 glomerula on in >60 11:59 PM r source ML/MIN/1. filtratio data 73 SQUARE n rate METERSIf (GF this patient is -A merican, then multiply theresult by 1.210. Globulin 1.3 - 3.2 gm/dL High No Jun 06 [Mass/vol informati 2017 ume] in on in 11:59 PM Serum source data Glucose 74 - 106 mg/dL High No Jun 06 [Mass/vol informati 2016 ume] in on in 11:59 PM Serum or source Plasma data Potassium 3.5 - 5.1 mmoL/L Low No Jun 06 informati 2017 [Moles/vo on in 11:59 PM lume] in source Serum or data Plasma Sodium 136 - 145 mmoL/L Normal No Jun 06 [Moles/vo 2016 lume] in on in 11:59 PM [...] 8.2 gm/dL Normal No Jun 06 [Mass/vol 2016 ume] in on in 11:59 PM Serum or source Plasma data CBC W Auto Differential panel in Blood Observa Value Referen Units Interpr Notes Date tion ce etation Range Basophils 0 - 0.2 K/MM3 Normal No Jun 062016 [#/volume on in 11:59 PM ] in source Blood by data Automated count Basophils 0.1 - 2.0 % Normal No Jun 062016 leukocyte on in 11:59 PM s in source Blood by data Automated count Eosinophi 0.0 - 0.4 K/mm3 Normal No Jun 06 ls 2016 [#/volume on in 11:59 PM ] in source Blood by data Automated count Eosinophi 0.1 - % Normal No Jun 06 ls/100 12.0 2016 leukocyte on in 11:59 PM s in source Blood by data Automated count Granulocy 1.3 - 8.0 K/mm3 Normal No Jun 06 rosalia 2016 [#/volume on in 11:59 PM ] in source Blood by data Automated count Granulocy 37.0 - % Normal No Jun 06 rosalia/100 80.0 2016 leukocyte on in 11:59 PM s in source Blood by data Automated count Hematocri 42.0 - % Low No Jun 06 t [Volume 52.0 2016 on in 11:59 PM Fraction] source of Blood data Hemoglobi 14.1 - g/dL Low No Jun 06 n 18.0 2016 [Mass/vol on in 11:59 PM ume] [...] Normal No Jun 06 te mean 35.4 2016 corpuscul on in 11:59 PM ar source hemoglobi data n concentra tion [Mass/vol ume] by Automated count Erythrocy 82.2 - fl Normal No Jun 06 te mean 97.8 2016 corpuscul on in 11:59 PM ar volume source [Entitic data volume] by Automated count Monocytes 0.1 - 1.0 K/mm3 Normal No Jun 062016 [#/volume on in 11:59 PM ] in source Blood by data Automated count Monocytes 1.7 - 9.3 % Normal No Jun 06 /100 2016 leukocyte on in 11:59 PM s in source Blood by data Automated count Platelet 7.4 - fl Normal No Jun 06 mean 10.4 2016 volume on in 11:59 PM [Entitic source volume] data in Blood by Automated count Platelets 142 - 424 K/mm3 Normal No Jun 062016 [#/volume on in 11:59 PM ] in source Blood data Erythrocy 4.6 - 6.2 M/mm3 Low No Jun 06 rosalia 2016 [#/volume on in 11:59 PM ] in source Amniotic data fluid Erythrocy 11.5 - % Normal No Jun 06 te 17.5 2016 distribut on in 11:59 PM ion width source [Entitic data volume] by Automated count Leukocyte 4.8 - K/MM3 Normal No Jun 06 s 10.8 2016 [#/volume on in 11:59 PM ] [...] 1.1 - 1.8 No Low No Apr 17 lobulin informati informati 2017 6:18 [Mass on in on in AM [...] Calcium 8.5 - mg/dL Normal No Apr 18 [Mass/vol 10.1 informati 2017 6:18 ume] in [...] Creatinin 0.70 - mg/dL High No Apr 18 e 1.30 informati 2017 6:18 [Mass/vol on in AM ume] in source Serum or data Plasma Creatinin 50 - 200 ML/MIN Low No Apr 17 e renal informati 2017 6:18 clearance on in AM source predicted data by Cockcroft -Gault formula Estimated >60 ML/MIN No REFERENCE Pantera 17 informati RANGE: 2017 6:18 glomerula on in >60 AM r source ML/MIN/1. filtratio data 73 SQUARE n rate METERSIf (GF this patient is -A merican, then multiply theresult by 1.210. Globulin 1.3 - 3.2 gm/dL High No Apr 17 [Mass/vol informati 2016 6:18 ume] in on in AM Serum source data Glucose 74 - 106 mg/dL High No Apr 18 [Mass/vol informati 2016 6:18 ume] in on in AM Serum or source Plasma data Potassium 3.5 - 5.1 mmoL/L Low alert Apr 18 2017 6:18 [Moles/vo CRITICAL AM lume] in RESULTS Serum or Plasma RESU LTS CALLED TO: [email or web address] 04/18/17 0716 Ochoa,[place] nda Sodium 136 - 145 mmoL/L Normal No Apr 18 [Moles/vo informati 2016 6:18 lume] in on in AM Serum [...] 6.4 - 8.2 gm/dL Normal No Apr 18 [Mass/vol informati 2016 6:18 ume] in on [...] 0.1 - 2.0 % Normal No Apr 18 informati 2016 6:15 leukocyte on in AM [...] High No Apr 18 rosalia/100 80.0 informati 2017 6:15 leukocyte on in AM [...] K/mm3 Low No Apr 18 es informati 2017 6:15 [#/volume on in AM ] in source Unspecifi data ed specimen by Automated count Lymphocyt 10 - 50 % Low No Apr 18 es informati 2016 6:15 [#/volume on in AM ] in source Unspecifi data ed specimen by Automated count Erythrocy 27 - 31.2 pg Normal No Apr 18 te mean informati 2017 6:15 corpuscul on in AM ar source hemoglobi data n [Entitic mass] Erythrocy 31.8 - g/dl Normal No Apr 18 te mean 35.4 informati 2017 6:15 corpuscul on in AM ar source hemoglobi data n concentra tion [Mass/vol ume] by Automated count Erythrocy 82.2 - fl Normal No Apr 18 te mean 97.8 informati 2017 6:15 corpuscul on in AM ar volume source [Entitic data volume] by Automated count Monocytes 0.1 - 1.0 K/mm3 Normal No Apr 18 informati 2017 6:15 [#/volume on in AM ] in source Blood by data Automated count Monocytes 1.7 - 9.3 % Normal No Apr 18 / informati 2017 6:15 leukocyte on in AM s in source Blood by data Automated count Platelet 7.4 - fl Normal No Apr 18 mean 10.4 informati 2017 6:15 volume on in AM [Entitic source volume] data in Blood by Automated count Platelets 142 - 424 K/mm3 Normal No Apr 18 informati 2017 6:15 [#/volume on in AM ] in source Blood data Erythrocy 4.6 - 6.2 M/mm3 Normal No Apr 17 rosalia informati 2016 6:15 [#/volume on in AM [...] 8.0 K/mm3 High No Apr 16 rosalia informati 2016 [#/volume on in 11:33 AM ] in source Blood by data Automated count Granulocy 37.0 - % High No Apr 16 rosalia/100 80.0 2016 leukocyte on in 11:33 AM s in source Blood by data Automated count Hematocri 42.0 - % Normal No Apr 17 t [Volume 52.0 informati 2016 on in 11:33 AM Fraction] source of Blood data Hemoglobi 14.1 - g/dL Normal No Apr 16 n 18.0 informati 2016 [Mass/vol on in 11:33 AM ume] in source Blood data Lymphocyt 0.7 - 4.5 K/mm3 Normal No Apr 16 es informati 2016 [#/volume on in 11:33 AM ] in source Unspecifi data ed specimen by Automated count Lymphocyt 10 - 50 % Low No Apr 17 es informati 2016 [#/volume on in 11:33 AM ] in source Unspecifi data ed specimen by Automated count Erythrocy 27 - 31.2 pg High No Apr 16 te mean informati 2016 corpuscul on in 11:33 AM ar source hemoglobi data n [Entitic mass] Erythrocy 31.8 - g/dl Normal No Apr 17 te mean 35.4 informati 2016 corpuscul on in 11:33 AM ar source hemoglobi data n concentra tion [Mass/vol ume] by Automated count Erythrocy 82.2 - fL Normal No Apr 16 te mean 97.8 informati 2016 corpuscul on in 11:33 AM ar [...] 6.2 M/mm3 Normal No Apr 17 rosalia 2016 [#/volume on in 11:33 AM ] in source Amniotic data fluid Erythrocy 11.5 - % Normal No Apr 17 te 17.5 2016 distribut on in 11:33 AM ion width source [Entitic data volume] by Automated count Leukocyte 4.8 - K/mm3 High No Apr 17 s 10.8 2016 [#/volume on in 11:33 AM ] in source Blood data Differential panel, method unspecified - Observa Value Referen Units Interpr Notes Date tion ce etation Range LYMPH 10 10 - 50 % Normal No Apr 172016 tion in 11:33 source AM data Monocytes 2 - 9 % Normal No Apr 172016 leukocyte on in 11:33 AM s in source Blood by data Automated count Platele NORMAL No No No No Apr 17 ts informa informa inform inform2016 [Presen tion in tion in tion in tion in 11:33 ce] in source source source source AM Blood data data data data by Light microsc opy Neutrophi 42 - 76 % High No Apr 17 ls 2016 [#/volume on in 11:33 AM ] in source Blood by data Automated count Cells No #CELLS No No Apr 17 Counted informati 2016 Total [#] on in on in on in 11:33 AM in Blood source source source data data data INR in Blood by Coagulation assay Observa Value Referen Units Interpr Notes Date tion ce etation Range INR in 0.9 - 1.1 No High Apr 17 Blood by informati NOTIFICAT 2017 Coagulati on in ION 11:33 AM on assay source RESULT data Elizabeth Lord ION INR RANGETHER APY FOR DVT, PE, ATRIAL FIB; 2.0 - 3.0PROPHY LAXIS FOR VTETHERAP Y FOR MECHANICA L HEART 2.5 - 3.5VALVE; PREVENTIO N OF SYSTEMICE MBOLISM SECONDARY TO AMI Prothromb 9.4 - SECONDS High Apr 17 in time 11.8 NOTIFICAT 2017 (PT) in ION 11:33 AM Platelet RESULT [...] Normal No Apr 17 dioxide, 32.0 informati 2017 total on in 11:33 AM [Moles/vo source lume] in data Serum or Plasma Creatinin 0.70 - mg/dL High No Apr 17 e 1.30 informati 2016 [Mass/vol on in 11:33 AM [...] 5.1 mmoL/L Normal No Apr 17 informati 2017 [Moles/vo on in 11:33 AM lume] in source Serum or data Plasma Sodium 136 - 145 mmoL/L Normal No Apr 17 [Moles/vo informati 2017 lume] in on in 11:33 AM Serum or source Plasma data
--- OUTSIDE RECORDS SUMMARY | 2017-09-03 01:45 | External Medical Summary Rpt ---
Author Author [facility] Talisha, [employer] Organization [employer] Address Unknown Phone Unavailable Results Lactate [...] RESU LTS CALLED TO: [email or web address] 04/18/17 0716 Ochoa,[place] nda Sodium 136 - 145 mmoL/L Normal [...]
--- NOTE | 2017-09-03 06:20 | RADIOLOGY REPORT PS360 ---
CT ABD PELVIS W/O CONTRAST CLINICAL INDICATION: Generalized abdominal pain ABD PAIN ORDERING PHYSICIAN: Neel Barba MD PATIENT AGE: 82 years COMPARISON: None TECHNIQUE: Axial images obtained with sagittal and coronal reformats. PROCEDURE: Oral Contrast: None IV Contrast: None . FINDINGS: Lung base images show cardiomegaly. There is consolidation in the left lower lobe with bronchovascular thickening and volume loss. Trace bilateral pleural effusions. Gallbladder is distended with stones. The spleen, adrenal glands, pancreas, and liver have an unremarkable unenhanced CT appearance. No renal calculi or hydronephrosis. No ureteral calculi. Exophytic isodensity projects off the superior pole the left kidney and may be due to a renal cyst at 1.8 cm. 15 mm hyperdensity projects off the lower pole left kidney laterally may be due to hyperdense cyst. Tiny umbilical hernia containing fat. Status post prostatectomy Unremarkable appendix. There is diverticulosis of the descending and sigmoid colon. No evidence of diverticulitis. Multilevel spondylosis of the lumbar spine. IMPRESSION: 1. Distended gallbladder with multiple stones. 2. Left lower lobe consolidation with trace bilateral effusions 3. Sigmoid diverticulosis
--- NOTE | 2017-09-03 06:21 | RADIOLOGY REPORT PS360 ---
CHEST-AP VIEW ONLY HISTORY: Cough ABD PAIN ORDERING PHYSICIAN: Neel Barba MD PATIENT AGE: 82 years COMPARISON: 07/15/2017 FINDINGS: The cardiomediastinal silhouette and pulmonary vascularity are within normal limits. Left lower lobe consolidation with trace effusion.. No acute bony abnormalities. IMPRESSION: Left lower lobe consolidation/pneumonia with trace effusion
--- NOTE | 2017-09-03 07:07 | CONSULT NOTE ---
See Addendum Standard Demographics Patient Demo Date of Consultation: 09/03/17 Referring Provider: Neel Barba MD Reason for Consultation: possible cholecystitis PRIMARY DIAGNOSIS: CHOLELITHIASIS Allergies: Coded Allergies: No Known Allergies (11/20/15) History of Present Illness Chief Complaint: Abdominal pain History of Present Illness: This is an 82-year-old gentleman seen in consultation from Dr. Barba for evaluation regarding possible cholecystitis. He presented overnight emergent department with what appears to be epigastric pain. He is a fairly poor historian. Apparently he had pain of a somewhat acute onset. Seemingly it was mostly in the epigastric region. No fevers. No jaundice. No definitive nausea and no reported emesis. A CT scan revealed cholelithiasis, but no sign of cholecystitis. His for evaluation was relatively normal. He was admitted for further observation and management and surgical consultation. Within the last "week or so" he has undergone a heart catheterization per his daughter's report. Reportedly, he had no significant coronary artery disease, but his "heart muscles were weak". Past Medical History Reports: congestive heart failure, hypertension. Denies: CAD. Surgical History Previous Surgery?Y PROSTATECTOMY Allergies Coded Allergies: No Known Allergies (11/20/15) Medications: Active Scripts Device (Bed, Hospital) 1 UNIT XX UD #1 DEV Prov: 02/10/17 Device (Nebulizer, Compressor) 1 UNIT XX UD #1 DEV Prov: 02/10/17 ALBUTEROL SULFATE (Accuneb) 1.25 MG INH TID #90 NEB Ref 2 Prov: 02/10/17 Ipratropium [place] (Ipratropium 0.5MG Neb Soln) 0.5 MG INH TID #90 NEB Ref 1 Prov: 02/10/17 Reported Medications Metoprolol Tartrate (Metoprolol 100MG) 100 MG PO BID Isosorbide Mononitrate (Isosorbide Mononitrate ER) 30 MG PO DAILY Pravastatin Sodium (Pravastatin 20MG) 60 MG PO DAILY Rivaroxaban (Xarelto) 15 MG PO DAILY Melatonin 10 MG SL NIGHT ONLY Family history Postive for: unknown. Smoking Hx Tobacco: No Smoker: Never Smoker Type: Chew Packs/day: N/A Are you/the child exposed to second-hand smoke: Yes Alcohol Alcohol: No Hx of Drug Use Drug Use? No Review of Systems Constitutional No: recent weight loss. Immune/allergy No: anaphalaxis. Respiratory No: productive cough (sputum). GI No: nausea, vomitting. (male) No: hematuria. Heme No: petechia. Endocrine No: polydipsia. Neurological No: change in LOC. Psychiatric No: anxious. Physical Exam VS/I&O Vital Signs Date Time Temp Pulse Resp B/P Pulse O2 O2 Flow FiO2 Ox Delivery Rate 09/03 0549 2 09/03 0507 2 09/03 0405 2 09/03 0405 97.6 86 20 160/87 91 ROOM AIR 09/03 0333 2 09/03 0333 2 09/03 0333 90 ROOM AIR 09/03 0333 90 ROOM AIR 09/03 0242 97.6 81 18 149/82 96 ROOM AIR 09/03 0238 84 09/03 0238 96 ROOM AIR 09/03 0237 97.6 81 18 149/82 09/03 0219 97.3 86 20 126/82 95 09/03 0144 20 09/02 2345 97.3 86 20 126/82 95 I&O 09/03 0700 Intake Total 115 Output Total Balance 115 Intake, IV 115 Output, Stool Patient 78.671 kg Weight Exam General appearance no acute distress Respiratory no distress Cardiovascular regular rate and rhythm Abdomen soft (+ RUQ TTP) Plan Plan: Impression: Cholelithiasis RIGHT upper quadrant pain - possibly secondary to gallstones and possibly secondary to peptic ulcer disease or other etiology Congestive heart failure Plan: f/u RUQ US PPI If RIGHT upper quadrant ultrasound reveals changes consistent with cholecystitis he will likely require cholecystectomy. Secondary to his comorbid conditions, this may better accomplished at a tertiary care center. Cardiology clearance will be necessary. If the patient's RIGHT upper quadrant ultrasound reveals no changes consistent with cholecystitis I would recommend close outpatient follow- up with continuation of proton pump inhibition. at 0706
--- NOTE | 2017-09-03 07:23 | PHARMACY CLINIC NOTE ---
Patient Demographics Patient Demographics Admission date: 09/03/17 Date: 09/03/17 Time: 07 Allergies Coded Allergies: No Known Allergies (11/20/15) HEIGHT- FT: 5 IN: 6.00 [id number] VTE General Information Labs: Laboratory Tests 09/03 0000 Hematology Hgb (14.1 - 18.0 g/dL) 13.0 L Hct (42.0 - 52.0 %) 40.9 L Plt Count (142 - 424 K/mm3) 255 Disclaimer The following section includes nursing documentation that has been pulled in for pharmacy review. Patient's VTE score: 3 Patient's VTE Risk: LOW RISK Clinical trial participant? No VTE prophylaxis F [id number] VTE prophylaxis ordered? Yes Type of prophylaxis/treatment: BECCA (XARELTO ALSO ORDERED) at 0713
--- NOTE | 2017-09-03 08:23 | HISTORY AND PHYSICAL REPORT ---
Demographics: Admit date: 09/02/17 Chief complaint: epigastric pain PRIMARY DIAGNOSIS: CHOLELITHIASIS Allergies: Coded Allergies: No Known Allergies (11/20/15) History of present illness: History of present illness: 82-year-old white male with a history of CVA, recurrent pneumonia, hypertension, congestive heart failure, atrial fib and dementia presented to the emergency department last night with acute onset of epigastric pain. Patient is a poor historian and family at bedside is unsure of specific details of of his pain. Patient has been undergoing cardiac workup with a LEFT heart cath by Dr. Ferguson last week. Cath revealed nonflow limiting coronary artery disease with ejection fraction 30-35 percent. Patient had some syncopal events with a bifascicular block. Dr. Ferguson recommended permanent pacemaker placement which was to be scheduled later this month. Last echo in 2016 showed inferior and posterior wall akinesis with an ejection fraction of 35-40 percent at that time. Daughter reports patient went to bed last evening he woke up shortly after complaining of severe epigastric pain. Denies any nausea, vomiting or diarrhea. In the ED, CT of abdomen showed gallbladder distention with multiple stones in the LEFT lower lobe pneumonia. Patient was admitted to acute care for further evaluation. Past medical history: Family HX Diabetes No CAD No Hypertension Yes Hyperlipidemia No Cancer Yes TB No Immunization HX DT/Tetanus Unknown Flu Refused Pneumonia Refuses TB Test in last year No General CAD? No Angina: No NC: No Hypertension? Yes Hyperlipidemia? Yes CHF? Yes DVT? No PE? No COPD? No Asthma? No Anemia? No GERD? No Gastric ulcers? No GI Bleed? No Hernia? No Thyroid Problems? No Hypothyroidism? No CVA? Yes Seizures? No Diabetes? No Renal Insuffiency? No UTI? No Stones? No BPH? No GB Disease: No Nephritic Syndrome? No Asplenia? No Hepatitis? No Sickle Cell Disease? No Arthritis? No Migraines? No Cataracts? No Glaucoma? No MRSA? No HIV? No TB? No Anxiety? No Depression? No Cancer? Yes Site: PROSTATE More? Yes Additional hx: ATRIAL FIB, DEMENTIA, ALZHEIMERS Past Surgical HX Previous Surgery?Y PROSTATECTOMY Current home meds: Active Scripts Device (Bed, Hospital) 1 UNIT XX UD #1 DEV Prov: 02/10/17 Device (Nebulizer, Compressor) 1 UNIT XX UD #1 DEV Prov: 02/10/17 ALBUTEROL SULFATE (Accuneb) 1.25 MG INH TID #90 NEB Ref 2 Prov: 02/10/17 Ipratropium [place] (Ipratropium 0.5MG Neb Soln) 0.5 MG INH TID #90 NEB Ref 1 Prov: 02/10/17 Reported Medications Metoprolol Tartrate (Metoprolol 100MG) 100 MG PO BID Isosorbide Mononitrate (Isosorbide Mononitrate ER) 30 MG PO DAILY Pravastatin Sodium (Pravastatin 20MG) 60 MG PO DAILY Rivaroxaban (Xarelto) 15 MG PO DAILY Melatonin 10 MG SL NIGHT ONLY Social Hx: Smoking HX Tobacco No Type CHEW Packs/day N/A Are you/the child exposed to second-hand smoke: Yes Alcohol Alcohol: No Hx of Drug Use Drug Use? No Patient's support system is good Review of systems: Constitutional No: no symptoms reported. Eyes No: no symptoms reported. Ears, Nose, Mouth, Throat No no symptoms reported Respiratory cough. Cardiovascular see HPI Gastrointestinal/Abdominal see HPI Genitourinary No: no symptoms reported. Musculoskeletal No: no symptoms reported. Skin No: no symptoms reported. Neurological No: no symptoms reported. Psychiatric Yes: other (regino). Exam: Lab data for last 24 hours: Laboratory Tests 09/03/17 0008: Lactic Acid 1.7 09/03/17 0000: Sodium 138, Potassium 2.9 *L, Chloride 103, Carbon Dioxide 31, BUN 13, Creatinine 1.1, Estimated Creat Clear 56, Estimated GFR (MDRD) 64, Glucose 131 H, Calcium 8.4 L, Total Bilirubin 0.7, AST 16, ALT 17, Alkaline Phosphatase 95, Creatine Kinase 24 L, CK-MB (CK-2) Rel Index 2.1, CK and CKMB Interp < 0.5, Troponin I 0.03, Total Protein 6.6, Albumin 2.8 L, Globulin 3.8 H, Albumin/ Globulin Ratio 0.7 L, Amylase 56, Lipase 191, WBC 10.7, RBC 4.35 L, Hgb 13.0 L, Hct 40.9 L, MCV 94.0, RDW 14.5, Plt Count 255, MPV 8.1, Gran % 81.9 H, Gran # 8.8 H, Lymphocytes % 8.4 L, Monocytes % 4.2, Eosinophils % 5.1, Basophils % 0.4, Lymphocytes # 0.9, Monocytes # 0.5, Eosinophils # 0.6 H, Basophils # 0.0, PUBS MCHC 31.7 L, MCH 29.8 Microbiology 09/03 8 BLOOD: Anaerobic Blood Culture - RECD 09/03 8 BLOOD: Aerobic Blood Culture - RECD 09/03 8 BLOOD: Anaerobic Blood Culture - RECD 09/03 8 BLOOD: Aerobic Blood Culture - RECD Admission vital signs: 1ST Vital Signs Result Date Time Pulse Ox 95 09/02 2345 B/P 126/82 09/02 2345 Temp 97.3 09/02 2345 Pulse 86 09/02 2345 Resp 20 09/02 2345 O2 Delivery ROOM AIR 09/03 238 O2 Flow Rate 2 09/03 0333 Exam General appearance: alert, awake, no acute distress Eyes: anicteric ENT: mucous membranes moist Neck: non-tender, no JVD Cardiovascular: no JVD, regular rate & rhythm, no murmur, normal peripheral pulses, no peripheral edema Respiratory: crackles LLL ABD: RUQ tenderness, no rebound, normoactive bowel sounds, soft, no distention Plan: Problem List 1. Cholelithiasis Assessment/Plan Surgery consulted. See note. Plan for gallbladder ultrasound today. If cholecystitis is present will likely need transfer to tertiary care center for surgery. 2. LLL pneumonia Assessment/Plan Start Invanz. 3. CHF (congestive heart failure) Assessment/Plan Consult cardiology. Plan: See above at 0848
--- NOTE | 2017-09-03 09:19 | CONSULT NOTE ---
Standard Demographics Patient Demo Date of Consultation: 09/03/17 Referring Provider: Neel Barba MD Reason for Consultation: Pre-op Evaluation PRIMARY DIAGNOSIS: CHOLELITHIASIS Problem list Problem list: 1. Mild CAD by cardiac cath, 08/2017 2. 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 HTN 4. Dementia 5. History of CVA 6. Chronic A. fib, on Xarelto therapy 7. cholelithiasis, 09/2017 8. Hyperlipidemia History of present illness: History of present illness: 82-year-old white male with a history of CVA, recurrent pneumonia, hypertension, congestive heart failure, atrial fib and dementia presented to the emergency department last night with acute onset of epigastric pain. Patient is a poor historian and family at bedside is unsure of specific details of of his pain. Patient has been undergoing cardiac workup with a LEFT heart cath by Dr. Ferguson last week. Cath revealed nonflow limiting coronary artery disease with ejection fraction 30-35 percent. Patient had some syncopal events with a bifascicular block. Dr. Ferguson recommended permanent pacemaker placement which was to be scheduled later this month. Last echo in 2015 showed inferior and posterior wall akinesis with an ejection fraction of 35-40 percent at that time. Daughter reports patient went to bed last evening he woke up shortly after complaining of severe epigastric pain. Denies any nausea, vomiting or diarrhea. In the ED, CT of abdomen showed gallbladder distention with multiple stones in the LEFT lower lobe pneumonia. Patient was admitted to acute care for further evaluation. The above per MARCOS Multani for Dr. Barba Past Medical History: General: Hypertension Yes CVA Yes Seizures No TB No COPD No Asthma No Diabetes No Angina No TN No Hyperlipidemia Yes Cancer Yes Ulcers No MRSA No GB Disease No Additional hx ATRIAL FIB, DEMENTIA, ALZHEIMERS Past Surgical HX: Previous Surgery?Y PROSTATECTOMY Allergies Coded Allergies: No Known Allergies (11/20/15) Home medications: Active Scripts Device (Bed, Hospital) 1 UNIT XX UD #1 DEV Prov: 02/10/17 Device (Nebulizer, Compressor) 1 UNIT XX UD #1 DEV Prov: 02/10/17 ALBUTEROL SULFATE (Accuneb) 1.25 MG INH TID #90 NEB Ref 2 Prov: 02/10/17 Ipratropium [place] (Ipratropium 0.5MG Neb Soln) 0.5 MG INH TID #90 NEB Ref 1 Prov: 02/10/17 Reported Medications Metoprolol Tartrate (Metoprolol 100MG) 100 MG PO BID Isosorbide Mononitrate (Isosorbide Mononitrate ER) 30 MG PO DAILY Pravastatin Sodium (Pravastatin 20MG) 60 MG PO DAILY Rivaroxaban (Xarelto) 15 MG PO DAILY Melatonin 10 MG SL NIGHT ONLY Current Medications: Current Medications Furosemide 40 MG DAILY PO Isosorbide Mononitrate 30 MG DAILY PO Metoprolol Tartrate 100 MG BID PO Rivaroxaban 15 MG DAILY PO Ertapenem 1 GM Q24H IV (UNV) Sodium Chloride 50 ML Morphine Sulfate 2 MG Q4HP PRN IV Ondansetron HCl 4 MG Q6HP PRN IV Sodium Chloride 1,000 ML .Q20H IV Sodium Chloride 50 ML .STK-MED ONE IV (DC) Promethazine HCl 0 .STK-MED ONE .ROUTE (DC) Morphine Sulfate 0 .STK-MED ONE .ROUTE (DC) Morphine Sulfate 2 MG ONCE ONE IV (DC) Promethazine HCl 12.5 MG ONCE ONE IV (DC) Sodium Chloride 25 ML ONCE ONE IV (DC) Sodium Chloride 10 ML PRN PRN IV Immunization HX DT/Tetanus Unknown Flu Refused Pneumonia Refuses TB Test in last year No Family history Family HX Family Hx Insignificant No Diabetes No CAD No Hypertension Yes Hyperlipidemia No Cancer Yes TB No Social Hx: Smoking HX Tobacco No Type CHEW Packs/day N/A Are you/the child exposed to second-hand smoke: Yes Alcohol Alcohol: No Hx of Drug Use Drug Use? No Patient's support system is good Review of systems: Constitutional weakness. Respiratory cough. Cardiovascular syncope Gastrointestinal/Abdominal abdominal pain Genitourinary No: no symptoms reported. Musculoskeletal back pain. Neurological Yes: see HPI. Exam: Admission Vital Signs: 1ST Vital Signs Result Date Time Pulse Ox 95 09/02 2345 B/P 126/82 09/02 2345 Temp 97.3 09/02 2345 Pulse 86 09/02 2345 Resp 20 09/02 2345 O2 Delivery ROOM AIR 09/03 023 O2 Flow Rate 2 09/03 0333 Last Vital Signs: Vital Signs Result Date Time Pulse Ox 99 09/03 0817 B/P 146/81 09/03 817 O2 Delivery OXYGEN 09/03 817 Temp 97.8 09/03 817 Pulse 88 09/03 817 Resp 18 09/03 817 O2 Flow Rate 2 09/03 549 Exam General appearance: alert, awake, no acute distress Neck: no carotid bruit, no JVD Cardiovascular: irregularly irregular Respiratory: decreased breath sounds with rhonchi left base. ABD: soft, tenderness Extremities: moves all, no peripheral edema Neuro: Some dementia noted. Alert but hard of hearing. Laboratory data: Laboratory Tests 09/03/178: Lactic Acid 1.7 09/03/17 0000: Sodium 138, Potassium 2.9 *L, Chloride 103, Carbon Dioxide 31, BUN 13, Creatinine 1.1, Estimated Creat Clear 56, Estimated GFR (MDRD) 64, Glucose 131 H, Calcium 8.4 L, Total Bilirubin 0.7, AST 16, ALT 17, Alkaline Phosphatase 95, Creatine Kinase 24 L, CK-MB (CK-2) Rel Index 2.1, CK and CKMB Interp < 0.5, Troponin I 0.03, Total Protein 6.6, Albumin 2.8 L, Globulin 3.8 H, Albumin/ Globulin Ratio 0.7 L, Amylase 56, Lipase 191, WBC 10.7, RBC 4.35 L, Hgb 13.0 L, Hct 40.9 L, MCV 94.0, RDW 14.5, Plt Count 255, MPV 8.1, Gran % 81.9 H, Gran # 8.8 H, Lymphocytes % 8.4 L, Monocytes % 4.2, Eosinophils % 5.1, Basophils % 0.4, Lymphocytes # 0.9, Monocytes # 0.5, Eosinophils # 0.6 H, Basophils # 0.0, PUBS MCHC 31.7 L, MCH 29.8 Microbiology Date/Time Procedure - Status Source Growth 09/03 8 Anaerobic Blood Culture - RECD BLOOD 09/03 8 Aerobic Blood Culture - RECD BLOOD 09/03 8 Anaerobic Blood Culture - RECD BLOOD 09/03 8 Aerobic Blood Culture - RECD BLOOD Plan Assessment: 1. Pre-op evaluation for possible cholecystectomy. Pt is an increased but acceptable risk to proceed with surgery if needed. 2. Non-obstructive, mild CAD by recent cath 3. Cardiomyopathy with EF 30-35% by recent cardiac cath last month. Echo today shows LVEF >40%. 4. Syncope with bifascicular block on EKG. Pt will need a pacemaker in the near future, but this does not preclude proceeding with surgery if needed this admission and does not need to be implanted prior to surgery. 5. Left side pneumonia, on Antibiotics 6. Hypokalemia, replacing. 7. chronic A. fib, Will hold Xarelto and use lovenox, if surgery planned. 8. Dementia Plan: See above. Discussed with Dr. Ferguson. at 1017
--- NOTE | 2017-09-03 10:16 | RADIOLOGY REPORT PS360 ---
US GALLBLADDER (ABD LTD) HISTORY: Abdominal pain abd pain ORDERING PHYSICIAN: Neel Barba MD PATIENT AGE: 82 years COMPARISON: None FINDINGS: Study is somewhat technically difficult PANCREAS: Difficulty visualized due to overlying bowel gas LIVER: No focal liver lesions demonstrated. Homogeneous echogenicity. No intrahepatic biliary ductal dilatation evident RIGHT KIDNEY: Unremarkable. Normal size and echogenicity. No hydronephrosis GALLBLADDER: Gallbladder is distended measuring 12 x 5 cm. The wall is slightly thickened at 4 mm. There is sludge within the gallbladder with a few small stones noted. Common bile duct is normal at 4 mm. No pericholecystic fluid. IMPRESSION: Distended gallbladder with stones and sludge
[2017-09-03 14:28] LABS: HEMOGLOBIN 13.2 g/dL (14.1-18.0); LYMPH # 0.8 K/mm3 (0.7-4.5); LYMPH % 3.4 % (10-50)
--- NOTE | 2017-09-03 17:31 | RADIOLOGY REPORT PS360 ---
PROCEDURE: 2-D M-mode and color Doppler study INDICATIONS FOR THE TEST: Chest pain COPD Heart Murmur Tobacco Smoking Palpitations Fatigue Syncope Edema HypertensionXDiabetes Mellitus Rheumatic Fever SOBXDOE ObesityXHyperlipidemia Family History HD Additional History CM,CHF PATIENT INFORMATION HEIGHT: 66 WEIGHT:173 GENDER: Male B/P:126/82 2-D/M-MODE INTERPRETATION: 2-D MEASUREMENTS OBSERVED VALUES IN CMS Right Ventricular Dimension (RVDd) 2.6 Interventricular Septum (Thickness)(IVsd) .9 Left Ventricular Internal Dimensions(LVIDd) 5.7 Left Ventricular Posterior Wall (Thickness)(LVPWd) .8 Aortic Root 3.1 Aortic Cusp Separation 1.4 Left Atrial Dimensions (LAD) 4.2 2D 1. Technically difficult study because of the patient's factor and poor acoustic windows 2. Left atrium is mildly enlarged, left ventricle is normal size, visually estimated ejection fraction 45%, with no obvious regional wall motion abnormality, endocardial surfaces are poorly visualized. 3. The right atrium and right ventricle are mildly enlarged with normal contractility. 4. The aortic valve is minimally thickened and fibrosed. 5. The mitral and tricuspid valve are minimally thickened. 6. No significant pericardial effusion noted. 7. The pulmonic valve is poorly visualized. DOPPLER INTERROGATION: Doppler interrogation of the aortic, mitral and tricuspid valvular presence of mild mitral and tricuspid regurgitation, calculated right ventricular systolic pressure is 50 mmHg consistent with moderate pulmonary hypertension, trace aortic insufficiency also seen. CONCLUSION: 1. Technically difficult study because of the patient's factor and poor acoustic windows 2. Mildly enlarged left atrium, normal left ventricular size, visually estimated ejection fraction of 45% with no obvious regional wall motion abnormality, endocardial surface of poorly visualized. 3. Trace aortic, mild mitral and tricuspid regurgitation, calculated right ventricular systolic pressure is 50 mmHg consistent with moderate pulmonary hypertension 4. No significant pericardial effusion noted.
[2017-09-03 18:16] LABS: NEUTROPHILS 91 % (42-76)
[2017-09-04 03:38] VITALS: BP 127/72
--- NOTE | 2017-09-04 06:39 | SURGEON PROGRESS NOTE ---
Subjective data Subjective data: When specifically asked about abdominal pain he states that he is "better". His only complaints are "arm pain" status post blood draw. Objective data Vitals,I&O,and Labs: Vital signs, intake and output,and available lab data for the last 24 hours is as noted below. Vital Signs Date Time Temp Pulse Resp B/P Pulse O2 O2 Flow FiO2 Ox Delivery Rate 09/04 0338 2 09/04 0338 98.2 89 18 127/72 94 ROOM AIR 09/04 0145 2 09/04 0116 2 09/03 2355 2 09/03 2351 2 09/03 2214 2 09/03 2125 2 09/03 2125 98.1 86 16 122/68 94 2 09/03 1927 2 09/03 1927 98.1 86 16 122/68 94 ROOM AIR 09/03 1838 2 09/03 1643 2 09/03 1559 98.4 90 16 149/63 95 ROOM AIR 09/03 1505 2 09/03 1310 2 09/03 1100 2 09/03 0936 97.8 88 18 146/81 99 2 09/03 0905 2 09/03 0817 97.8 88 18 146/81 99 OXYGEN 09/03 1500 09/03 2300 09/04 0700 Intake Total 641 518 Output Total Balance 641 518 Intake, IV 641 518 Output, Stool Patient 77.167 kg Weight Laboratory Tests Test Result Date Time Chemistry Sodium (mmoL/L) 139 09/03 1415 Potassium (mmoL/L) 3.4 09/03 1415 Chloride (mmoL/L) 103 09/03 1415 Carbon Dioxide (mmoL/L) 29 09/03 1415 BUN (mg/dL) 9 09/03 1415 Creatinine (mg/dL) 0.9 09/03 1415 Estimated Creat Clear (ML/MIN) 70 09/03 1415 Estimated GFR (MDRD) (ML/MIN) 81 09/03 1415 Glucose (mg/dL) 120 09/03 1415 Lactic Acid (mmol/L) 1.7 09/03 0008 Calcium (mg/dL) 8.7 09/03 1415 Total Bilirubin (mg/dL) 0.7 09/03 0000 AST (U/L) 16 09/03 0000 ALT (U/L) 17 09/03 0000 Alkaline Phosphatase (U/L) 95 09/03 0000 Creatine Kinase (U/L) 24 09/03 0000 CK-MB (CK-2) Rel Index (U/L) 2.1 09/03 0000 CK and CKMB Interp (ng/mL) < 0.5 09/03 0000 Troponin I (ng/mL) 0.03 09/03 0000 Total Protein (gm/dL) 6.6 09/03 0000 Albumin (gm/dL) 2.8 09/03 0000 Globulin (gm/dL) 3.8 09/03 0000 Albumin/Globulin Ratio 0.7 09/03 0000 Amylase (U/L) 56 09/03 0000 Lipase (U/L) 107 09/03 141 Hematology WBC (K/MM3) 22.0 09/03 141 RBC (M/mm3) 4.37 09/03 141 Hgb (g/dL) 13.2 09/03 141 Hct (%) 41.2 09/03 141 MCV (fl) 94.4 09/03 141 RDW (%) 14.4 09/03 1415 Plt Count (K/mm3) 245 09/03 1415 MPV (fl) 8.3 09/03 141 Gran % (%) 92.3 09/03 141 Gran # (K/mm3) 20.3 09/03 1415 Total Counted (#CELLS) 100 09/03 1415 Lymphocytes % (%) 3.4 09/03 141 Monocytes % (%) 3.7 09/03 1415 Eosinophils % (%) 0.5 09/03 141 Basophils % (%) 0.2 09/03 141 Neutrophils (%) 91 09/03 141 Lymphocytes (Manual) (%) 5 09/03 141 Lymphocytes # (K/mm3) 0.8 09/03 141 Monocytes (Manual) (%) 4 09/03 141 Monocytes # (K/mm3) 0.8 09/03 141 Eosinophils # (K/mm3) 0.1 09/03 141 Basophils # (K/MM3) 0.0 09/03 1415 Platelet Estimate NORMAL 09/03 1415 PUBS MCHC (g/dl) 32.1 09/03 141 Immunology MCH (pg) 30.3 09/03 1415 Assessment findings Assessment Exam General appearance: no acute distress Cardiovascular: regular rate & rhythm Respiratory: no respiratory distress ABD: soft (still with some TTP in RUQ) Patient plan Diagnoses: Cholelithiasis and likely acute calculus cholecystitis Congestive heart failure Plan: Antibiotics, continue medical management Additional data: After long discussion with the patient and his family concerning the risks and benefits of surgical intervention, they do not wish to proceed. If this decision does change, he will likely need to be transferred to a tertiary care center secondary to his considerable comorbid conditions. Evaluation by the anesthesia service confirms that transfer would be warranted. at 0642
[2017-09-04 06:42] LABS: HEMOGLOBIN 13.1 g/dL (14.1-18.0); LYMPH # 0.8 K/mm3 (0.7-4.5); LYMPH % 3.2 % (10-50)
--- NOTE | 2017-09-04 07:58 | ACUTE CARE PROGRESS NOTE (QUA) ---
Progress Notes Subjective Date 09/04/17 Time 0756 Note Patient is awake, alert and states that he feels fine. However he states "don't touch my belly." Lungs have rhonchi in both lower lung willis, heart rate regular. Abdomen is soft with hyperactive bowel sounds but tender in the RIGHT upper quadrant without bruising or rigidity or rebound. Objective Findings Last VS-Temp:98.2 B/P:127/72 Pulse:89 Resp:18 SaO2:94 ROOM AIR Last weight lbs:170 oz:2 K.167 Method:Bed Scales Assessment/Plan Problem List 1. Cholelithiasis Qualifiers: Cholelithiasis location: gallbladder Cholecystitis presence: without cholecystitis Biliary obstruction: without biliary obstruction Qualified Code: K80.20 - Calculus of gallbladder without cholecystitis without obstruction 2. LLL pneumonia 3. CHF (congestive heart failure) Patient condition Stable Plan: continue current care, patient in a very difficult situation. Has clear cholecystitis but surgical options are limited cousins of his high-risk status and he would need to be transferred to a tertiary care facility. His family doesn't know about their wishes about this. He is demented and has a history of severe agitation when and healthcare facilities. They're considering palliative care versus home care versus medical management here versus transfer. I clearly laid out all the options for family and they will think about their options today and decide this afternoon whether or not they wish aggressive surgical care in [place] versus medical management over the weekend here versus home care with hospice. I believe his leukocytosis is from a combination of his cholecystitis and his pneumonia. We'll await culture results from sputum sample. This inpt stay is expected to cross 2 MNs from start of care Yes at 0757
[2017-09-04 08:00] VITALS: BP 133/74
[2017-09-04 09:06] VITALS: BP 133/74
--- NOTE | 2017-09-04 12:40 | DISCHARGE SUMMARY STANDARD ---
Demographics Admit date: 09/02/17 Discharge date: 09/04/17 History of present illness History of present illness 82-year-old white male with a history of CVA, recurrent pneumonia, hypertension, congestive heart failure, atrial fib and dementia presented to the emergency department last night with acute onset of epigastric pain. Patient is a poor historian and family at bedside is unsure of specific details of of his pain. Patient has been undergoing cardiac workup with a LEFT heart cath by Dr. Ferguson last week. Cath revealed nonflow limiting coronary artery disease with ejection fraction 30-35 percent. Patient had some syncopal events with a bifascicular block. Dr. Ferguson recommended permanent pacemaker placement which was to be scheduled later this month. Last echo in 2016 showed inferior and posterior wall akinesis with an ejection fraction of 35-40 percent at that time. Daughter reports patient went to bed last evening he woke up shortly after complaining of severe epigastric pain. Denies any nausea, vomiting or diarrhea. In the ED, CT of abdomen showed gallbladder distention with multiple stones in the LEFT lower lobe pneumonia. Patient was admitted to acute care for further evaluation. Hospital Course Hospital Course: Patient was admitted, started on Invanz because of elevated white count and evidence of gallbladder disease with cholecystitis. Chest x-ray revealed pneumonia, Invanz therapy was continued for this. Sputum culture was obtained, at the time of discharge shows gram-positive diplococci, official culture report pending. Surgical consultation was obtained, it was felt that surgical intervention would be needed but with multiple comorbidities cardiology evaluation was done, cardiology consultations opinion was that patient would be at acceptable risk about our anesthesia service here was very concerned about his multiple comorbid conditions specifically is depressed EF and other issues. They felt he would be best served to be transferred to a tertiary care facility. I discussed case with patient and family, they agreed in transfer to [facility] the [facility] for ongoing antibiotic therapy, cardiac monitoring and surgical consultation. Patient's clinical status today has been improved, with no fever, normal blood pressure and pulse rates and the ability to take clear liquids and some full liquids and without worsening pain although he certainly does continue to have pain on examination. We will plan to transfer today. Discharge diagnoses Problem List 1. Cholelithiasis 2. LLL pneumonia 3. CHF (congestive heart failure) 4. Cholecystitis Medications Medications: Discharge meds are as noted. Follow up Follow up in office in: 1 DAY with: LOKESH BULLARD at [phone]
[2017-09-04 13:45] VITALS: BP 133/74
== END 2017-09-04 13:45 | disposition short-term general hospital (02) | DRG 444 ==
LOC: ER 23:39 → 2ND 09-03 01:37 → ER 09-03 01:37 → 2ND 09-03 01:44
PROVIDERS: Emergency Medicine
DX: K80.20 Calculus of gallbladder without cholecystitis without obstruction (principal); J18.9 Pneumonia, unspecified organism; I48.2 Chronic atrial fibrillation; I42.9 Cardiomyopathy, unspecified; I50.9 Heart failure, unspecified; I10 Essential (primary) hypertension; Z79.01 Long term (current) use of anticoagulants; E87.6 Hypokalemia
CPT/HCPCS: J1335

== ENCOUNTER → 2017-09-10 | Outpatient (CLI) | payer MEDICARE ==
[~2017-09-10] MED LIST changes: +MELATONIN1 M2 SL; +XARELTO15 MG PO
[2017-09-10 13:43] LABS: BUN 8 mg/dL (7-18)
[2017-09-10 13:53] LABS: GFR (ESTIMATED) 72 ML/MIN (>60)
== END ==
LOC: LAB 11:04
PROVIDERS: Internal Medicine
DX: I45.10 Unspecified right bundle-branch block (principal); I44.4 Left anterior fascicular block; I42.0 Dilated cardiomyopathy

== ENCOUNTER 2017-10-02 14:34 | Emergency (ER) | payer MEDICARE ==
[~2017-10-02] VITALS: Ht 167.6 cm; Wt 68.0 kg
[2017-10-02 15:09] LABS: HEMOGLOBIN 13.2 g/dL (14.1-18.0); LYMPH # 1.6 K/mm3 (0.7-4.5); LYMPH % 20.5 % (10-50)
--- NOTE | 2017-10-02 15:14 | Emergency Room Report ---
History of Present Illness Time Seen by MD Starr Presenting Problem in Triage Pt arrived:Wheelchair Presenting Problem:PT'S SON STATES THAT PT STARTED WITH CHEST PAIN, SOB. PT HAS HX OF PNA, AFIB. Onset of symptoms date/time:/ or onset unknown for:MEDICAL HX UNKNOWN Treatment Prior to Arrival: PTS SON STATES THAT HE HAS GIVEN PT O2 AND BREATHING TREATMENTS [employer] Provided by:SELF Sepsis Risk Assessment: Temp: 98.4 B/P: 103/61 MAP: 75 Pulse: 103 Resp: 26 Recent fever? N Clinical Suspician of Infection? N Mental Status: 2 - Mildly Altered Sepsis Risk:Low Sepsis Risk Have you (or family members/close friends) recently traveled outside the [place]? N If Yes, where/when: Have you had exposure to infectious disease within the past month? N TB? Other? Specify: Patient with recent pneumonia, transferred to for pneumonia and cholecystitis one month ago. Candidate for PM. Drain placed in gall bladder. He uses oxygen PRN. No fever. Has a hx of dementia, but son provides hpi. He has had increased SOB today, with episodes of tachypnea, sats in low 90's on arrival. Given duoneb and Solumedrol on arrival. ALLERGIES Coded Allergies: No Known Allergies (11/20/15) Home Medications Active Scripts Device (Bed, Hospital) 1 UNIT XX UD #1 DEV Prov: 02/10/17 Device (Nebulizer, Compressor) 1 UNIT XX UD #1 DEV Prov: 02/10/17 ALBUTEROL SULFATE (Accuneb) 1.25 MG INH TID #90 NEB Ref 2 Prov: 02/10/17 Ipratropium [place] (Ipratropium 0.5MG Neb Soln) 0.5 MG INH TID #90 NEB Ref 1 Prov: 02/10/17 Reported Medications Metoprolol Tartrate (Metoprolol 100MG) 100 MG PO BID Isosorbide Mononitrate (Isosorbide Mononitrate ER) 30 MG PO DAILY Pravastatin Sodium (Pravastatin 20MG) 60 MG PO DAILY Rivaroxaban (Xarelto) 15 MG PO DAILY Melatonin 10 MG SL NIGHT ONLY History Medical History General CAD? No Angina: No OR: No Hypertension? Yes Hyperlipidemia? Yes CHF? Yes DVT? No PE? No COPD? No Asthma? No Anemia? No GERD? No Gastric ulcers? No GI Bleed? No Hernia? No Thyroid Problems? No Hypothyroidism? No CVA? Yes Seizures? No Diabetes? No Renal Insuffiency? No End Stage Renal Disease? No UTI? No Stones? No BPH? No GB Disease: No Nephritic Syndrome? No Asplenia? No Hepatitis? No Sickle Cell Disease? No Arthritis? No Migraines? No Cataracts? No Glaucoma? No MRSA? No HIV? No TB? No Anxiety? No Depression? No Cancer? Yes Site: PROSTATE More? Yes Additional hx: ATRIAL FIB, DEMENTIA, ALZHEIMERS Immunization Hx DT/Tetanus Unknown Flu Refused Pneumonia Refuses Surgical Hx Previous Surgery?Y PROSTATECTOMY GALLBLADDER DRAIN Family History Family Hx Diabetes No CAD No Hypertension Yes Hyperlipidemia No Cancer Yes TB No Social History Smoking Hx Smoker: Never Smoker Tobacco: No Packs/day N/A Alcohol Alcohol: No Review of Systems All Other Systems Reviewed and Negative Respiratory see HPI Cardiovascular see HPI, denies chest pain, denies palpitations, denies syncope Gastrointestinal see HPI Physical Exam Vital Signs Vital Signs Date Time Temp Pulse Resp B/P Pulse O2 O2 Flow FiO2 Ox Delivery Rate 10/02 1654 98.5 106 24 123/56 88 10/02 1436 98.4 103 26 103/61 90 General Appearance normal appearance, WD/WN, no apparent distress Eye Exam - bilateral eye normal exam, bilateral eye PERRL, bilateral eye EOMI Neck normal inspection, non-tender, supple, full range of motion Respiratory Status Yes: trachea midline, chest symmetrical, non tender chest. No: respiratory distress, tender on palpation, use of accessory muscles, pain on inspiration, pain on expiration, productive cough, non productive cough. Lung Sounds bilateral: normal breath sounds, lungs clear. Cardiovascular normal exam, regular rate/rhythm (irr irr Afib on monitor), no peripheral edema, no gallop, no JVD, no murmur, no rub, normal peripheral pulses Gastrointestinal normal bowel sounds, normal exam, non tender, soft, no organomegaly, no pulsatile mass, no guarding, no rebound, drain in GB intact with bile in drain Extremities non-tender, normal range of motion, normal inspection, normal capillary refill, no pedal edema Strength 5 Upper Ext (L), 5 Upper Ext (R), 5 Lower Ext (L), 5 Lower Ext (R) Neurologic alert, normal exam, no motor/sensory deficits, oriented x 3 (some dementia; nonfocal) Glascow Coma Scale Glascow Coma Scale Response Value EYE response: 4 Spontaneously 4 MOTOR response: 6 OBEYS 6 VERBAL response: 5 Oriented & Converses 5 Total 15 Skin intact, pallor Medical Decision Making LABS/Meds/Orders Pt receiving controlled substance in ED? No Results/Orders Laboratory Tests 10/02/17 1500: Troponin I 0.04 10/02/17 1500: Lactic Acid 2.2 H 10/02/17 1500: Sodium 139, Potassium 3.7, Chloride 104, Carbon Dioxide 29, BUN 13, Creatinine 1.5 H, Estimated Creat Clear 37 L, Estimated GFR (MDRD) 45, Glucose 112 H, Calcium 8.9, Total Bilirubin 0.7, AST 16, ALT 13, Alkaline Phosphatase 100, Total Protein 7.3, Albumin 3.3 L, Globulin 4.0 H, Albumin/Globulin Ratio 0.8 L, WBC 7.8, RBC 4.36 L, Hgb 13.2 L, Hct 41.4 L, MCV 94.8, RDW 15.0, Plt Count 176, MPV 8.7, Gran % 58.9, Gran # 4.6, Lymphocytes % 20.5, Monocytes % 5.5, Eosinophils % 14.3 H, Basophils % 0.8, Lymphocytes # 1.6, Monocytes # 0.4, Eosinophils # 1.1 H, Basophils # 0.1, PUBS MCHC 31.9, MCH 30.3 Current Medication Orders Sig/Joseph Start time Last Medication Dose Route Stop Time Status Admin Sodium Chloride 50 ML .STK-MED ONE 10/02 164 DC IV Ceftriaxone Sodium 0 .STK-MED ONE 10/02 164 DC .ROUTE Ceftriaxone Sodium 1 GM ONCE ONE 10/02 1645 CAN Sodium Chloride 50 ML IV 10/02 1714 Sodium Chloride 0 .STK-MED ONE 10/02 1643 DC IV Methylprednisolone 125 MG ONCE ONE 10/02 1500 DC 10/02 Sodium Succinate IV 10/02 1501 1447 Sodium Chloride 10 ML PRN PRN 10/02 1500 AC IV 10/03 1455 Methylprednisolone 0 .STK-MED ONE 10/02 1444 DC Sodium Succinate .ROUTE Orders Procedure Date/time Status TROPONIN I 10/02 1607 Complete URINALYSIS/COMPLETE 10/02 1601 Active LACTIC ACID FOLLOW UP 10/02 1526 Active RT Aerosol Treatment, Provide 10/02 1516 Active ELECTROCARDIOGRAM REQUEST 10/02 1506 Active IV SALINE LOCK 10/02 1455 Active CULTURE, BLOOD 10/02 145 Active LACTIC ACID 10/02 145 Complete CBC WITH AUTO DIFF 10/02 145 Complete CHEM 12 PROFILE 10/02 1455 Complete 12 LEAD EKG-NEGRO (INITIAL) 10/02 UNK Active CM/EKG CM/EKG EKG rate, rhythm, no ectopy, normal QRS, normal EKG (Afib with hx same) Consult MD Physician Consult 1 Consult/PCP Dr. 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 Gonzáles accepting for transfer to ED. Progress ED Progress Notes Date 10/02/17 Time 1656 Comment I spoke with the family and patient. Patient is stable s/p nebs and steroids; family states that the patient is already on home antibiotics per HHN and they feel comfortable taking him home as he has oxygen at home and his breathing is stable. He can then follow up with about his drain. Departure Departure Time of Disposition 1645 Disposition DC Home or Self Care(routine) Clinical Impression Primary Impression: COPD exacerbation Secondary Impressions: History of pneumonia, Shortness of breath Condition STABLE Referrals Negro MARKS,Nestor Rowan (Family) ED Critical Care Critical Care No at 1700
--- NOTE | 2017-10-02 15:39 | RADIOLOGY REPORT PS360 ---
CHEST-PORTABLE HISTORY: Chest pain and dyspnea CHEST PAIN ORDERING PHYSICIAN: Celia Bernal MD PATIENT AGE: 82 years COMPARISON: 09-18 FINDINGS: The cardiomediastinal silhouette and pulmonary vascularity are within normal limits. There has been interval improvement in the left lower lobe airspace disease. There remains mild blunting of the left CP angle with mild left basilar atelectasis.. The right lung is clear. IMPRESSION: Improvement in left lower lobe consolidation with mild residual blunting of left CP angle and minimal left basilar atelectasis
--- OUTSIDE RECORDS SUMMARY | 2017-10-02 16:00 | External Medical Summary Rpt | CCD ---
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 I48.2 Chronic 09-11-2017 atrial fibrillatio n I50.22 Chronic 09-11-2017 systolic (congestive ) heart failure J18.9 Pneumonia, 09-11-2017 unspecified organism K21.9 Gastro-esop 09-11-2017 hageal reflux disease without esophagitis K57.90 Diverticulo 09-11-2017 sis of intestine, part unspecified , without perforation or abscess without bleeding K80.00 Calculus of 09-11-2017 gallbladder with acute cholecystit is without obstruction Z79.01 USP 09-11-2017 (current) use of anticoagula nts Z80.9 Family 09-11-2017 history of malignant neoplasm, unspecified Z85.46 Personal 09-11-2017 history of malignant neoplasm of prostate 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) K81.9 Cholecystit 09-07-2017 is, unspecified K80.20 Calculus of 09-04-2017 gallbladder without cholecystit is without obstruction 401.9 E86.0 DEHYDRATION E87.6 HYPOKALEMIA I48.91 UNSPECIFIED ATRIAL FIBRILLATIO N J20.9 ACUTE BRONCHITIS, UNSPECIFIED J42 Unspecified chronic bronchitis J96.21 Acute and chronic respiratory failure with hypoxia R06.00 DYSPNEA, UNSPECIFIED R06.02 SHORTNESS OF BREATH R07.9 CHEST PAIN, UNSPECIFIED R09.02 Hypoxemia R10.13 EPIGASTRIC PAIN R13.11 Dysphagia, oral phase R23.3 SPONTANEOUS ECCHYMOSES R42 DIZZINESS AND GIDDINESS R55 SYNCOPE AND COLLAPSE R79.1 ABNORMAL COAGULATION PROFILE S00.83XA CONTUSION OF OTHER PART OF HEAD, INITIAL ENCOUNTER Z74.09 Other reduced mobility Z79.899 OTHER BOILER OUT (CURRENT) DRUG THERAPY Results Labs Lab Lab Date Result Refere Interp Status Commen Order Detail nces retati t Range on Basic metabolic panel (09-10-2017 11:06) Serum = 142 136-145 complet sodium 017 mmoL/L ed measure 11:06 ment Serum = 4.9 3.5-5.1 complet potassi 017 mmoL/L ed um 11:06 measure ment Serum = 96 74-106 complet or 017 mg/dL ed plasma 11:06 glucose measure ment (mas Estimat = 72 >60 complet ed 017 ML/MIN ed glomeru 11:06 lar filtrat ion rate (GF Serum = 1.0 0.70-1. complet or 017 mg/dL 30 ed plasma 11:06 creatin ine measure ment ( Carbon = 27 21.0-32 complet dioxide 017 mmoL/L .0 ed 11:06 measure ment Serum = 108 98-107 complet or 017 mmoL/L ed plasma 11:06 chlorid e measure ment (mo Serum = 8.5 8.5-10. complet or 017 mg/dL 1 ed plasma 11:06 calcium measure ment (mas Serum = 8 7-18 complet or 017 mg/dL ed plasma 11:06 urea nitroge n measure men Lipase SerPl-cCnc (09-05-2017 10:51) Lipase DUP 19-63 complet SerPl-c 017 DUPLICA ed Cnc 10:51 TE ORDER,C REDITED L U/L Lipase SerPl-cCnc (09-05-2017 10:47) Lipase 14 U/L 19-63 complet SerPl-c 017 ed Cnc 10:47 Resp virus 12 Pnl XXX PCR (09-04-2017 18:38) COMP [id number] complet RESP 017 09 ed PCR 18:38 negativ PANEL e RESULT: (qualif ier value) SCT NEGRP NEGATIV E for all analyte s L MDRO Wnd (09-04-2017 18:38) Bacteri [id number] complet a XXX 017 00 not ed Anaerob 18:38 isolate e+Aerob d e Cult (qualif ier value) SCT NMDR NO MULTI DRUG RESISTA NT ORGANIS MS ISOLATE D L CC XXX NOTAP complet VC-aCnc 017 NOT ed 18:38 APPLICA BLE L SPECIME SWAB complet N 017 TRANSPO ed CONTAIN 18:38 RT ER SWAB(S) INFO: L Magnesium SerPl-mCnc (09-04-2017 18:14) Magnesi 1.7 1.9-2.4 complet um 017 mg/dL ed SerPl-m 18:14 Cnc Lactate Bld-sCnc (09-04-2017 18:14) Lactate 1.3 complet 017 mmol/L ed Bld-sCn 18:14 c Bacteria identified in Sputum by Culture (09-04-2017 06:36) Bacteri LARGE complet a 017 AMOUNT ed identif 06:36 OF ied in YEAST Sputum NOTED. by PLEASE Culture CONTACT LAB IF FURTHER Bacteri ID complet a 017 REQUIRE ed identif 06:36 D. LAB ied in WILL Sputum HOLD by YEAST Culture FOR 5 DAYS. Bacteri Yeast complet a 017 ed identif 06:36 ied in Sputum by Culture Basic metabolic panel (09-04-2017 06:32) Serum = 139 136-145 complet sodium 017 mmoL/L ed measure 06:32 ment Serum = 3.0 3.5-5.1 complet potassi 017 mmoL/L ed um 06:32 measure ment Serum = 118 74-106 complet or 017 mg/dL ed plasma 06:32 glucose measure ment (mas Estimat = 81 >60 complet ed 017 ML/MIN ed glomeru 06:32 lar filtrat ion rate (GF Estimat = 69 50-200 complet ion of 017 ML/MIN ed creatin 06:32 ine renal clearan ce Serum = 0.9 0.70-1. complet or 017 mg/dL 30 ed plasma 06:32 creatin ine measure ment ( Carbon = 27 21.0-32 complet dioxide 017 mmoL/L .0 ed 06:32 measure ment Serum = 105 98-107 complet or 017 mmoL/L ed plasma 06:32 chlorid e measure ment (mo Serum = 8.5 8.5-10. complet or 017 mg/dL 1 ed plasma 06:32 calcium measure ment (mas Serum = 12 7-18 complet or 017 mg/dL ed plasma 06:32 urea nitroge n measure men CBC w auto diff (09-04-2017 06:32) Blood = 25.5 4.8-10. complet leukocy 017 K/MM3 8 ed rosalia 06:32 count (number /volume ) Automat = 14.6 11.5-17 complet ed 017 % .5 ed erythro 06:32 cyte distrib ution width Red = 4.13 4.6-6.2 complet blood 017 M/mm3 ed cell 06:32 count Blood = 216 142-424 complet platele 017 K/mm3 ed t count 06:32 Automat = 8.5 7.4-10. complet ed 017 fl 4 ed blood 06:32 platele t mean volume serenity Dundy % = 5.1 % 1.7-9.3 complet 017 ed 06:32 Absolut = 1.3 0.1-1.0 complet e 017 K/mm3 ed monocyt 06:32 e count Automat = 94.1 82.2-97 complet ed 017 fl .8 ed erythro 06:32 cyte mean corpusc ular v Automat = 33.6 31.8-35 complet ed 017 g/dl .4 ed erythro 06:32 cyte mean corpusc ular h Mean = 31.6 27-31.2 complet corpusc 017 pg ed ular 06:32 hemoglo bin (MCH) determ Lymphoc = 3.2 % 10-50 complet yte 017 ed count, 06:32 blood, automat ed Absolut = 0.8 0.7-4.5 complet e 017 K/mm3 ed lymphoc 06:32 yte count Blood = 13.1 14.1-18 complet hemoglo 017 g/dL .0 ed bin 06:32 measure ment (mass/v olum Blood = 38.9 42.0-52 complet hematoc 017 % .0 ed rit 06:32 (volume fractio n) Granulo = 91.2 37.0-80 complet cyte 017 % .0 ed percent 06:32 age Blood = 23.3 1.3-8.0 complet granulo 017 K/mm3 ed cytes 06:32 automat ed count (numb Automat = 0.3 % 0.1-12. complet ed 017 0 ed blood 06:32 eosinop hils/10 0 leukocy t Automat = 0.1 0.0-0.4 complet ed 017 K/mm3 ed blood 06:32 eosinop hil count Baso % = 0.2 % 0.1-2.0 complet 017 ed 06:32 Automat = 0.1 0-0.2 complet ed 017 K/MM3 ed blood 06:32 basophi l count (count/ vo Sputum culture (09-04-2017 05:36) Sputum [id number] complet culture 017 5 Yeast ed 05:36 SCT Y YEAST L Sputum ID complet culture 017 REQUIRE ed 05:36 D. LAB WILL HOLD YEAST FOR 5 DAYS. Sputum LARGE complet culture 017 AMOUNT ed 05:36 OF YEAST NOTED. PLEASE CONTACT LAB IF FURTHER Basic metabolic panel (09-03-2017 14:15) Serum = 139 136-145 complet sodium 017 mmoL/L ed measure 14:15 ment Serum = 3.4 3.5-5.1 complet potassi 017 mmoL/L ed um 14:15 measure ment Serum = 120 74-106 complet or 017 mg/dL ed plasma 14:15 glucose measure ment (mas Estimat = 81 >60 complet ed 017 ML/MIN ed glomeru 14:15 lar filtrat ion rate (GF Estimat = 70 50-200 complet ion of 017 ML/MIN ed creatin 14:15 ine renal clearan ce Serum = 0.9 0.70-1. complet or 017 mg/dL 30 ed plasma 14:15 creatin ine measure ment ( Carbon = 29 21.0-32 complet dioxide 017 mmoL/L .0 ed 14:15 measure ment Serum = 103 98-107 complet or 017 mmoL/L ed plasma 14:15 chlorid e measure ment (mo Serum = 8.7 8.5-10. complet or 017 mg/dL 1 ed plasma 14:15 calcium measure ment (mas Serum = 9 7-18 complet or 017 mg/dL ed plasma 14:15 urea nitroge n measure men Differential panel, method unspecified - (09-03-2017 14:15) Blood = 100 complet total 017 #CELLS ed cell 14:15 count Neutrop = 91 % 42-76 complet hil 017 ed count 14:15 Platele NORMAL complet t 017 NORMAL ed estimat 14:15 L e Monocyt = 4 % 2-9 complet e % 017 ed 14:15 LYMPH 5 % 10-50 complet 017 ed 14:15 CBC w auto diff (09-03-2017 14:15) Blood = 245 142-424 complet platele 017 K/mm3 ed t count 14:15 Automat = 8.3 7.4-10. complet ed 017 fl 4 ed blood 14:15 platele t mean volume serenity Dundy % = 3.7 % 1.7-9.3 complet 017 ed 14:15 Absolut = 0.8 0.1-1.0 complet e 017 K/mm3 ed monocyt 14:15 e count Automat = 94.4 82.2-97 complet ed 017 fl .8 ed erythro 14:15 cyte mean corpusc ular v Automat = 32.1 31.8-35 complet ed 017 g/dl .4 ed erythro 14:15 cyte mean corpusc ular h Mean = 30.3 27-31.2 complet corpusc 017 pg ed ular 14:15 hemoglo bin (MCH) determ Lymphoc = 3.4 % 10-50 complet yte 017 ed count, 14:15 blood, automat ed Absolut = 0.8 0.7-4.5 complet e 017 K/mm3 ed lymphoc 14:15 yte count Blood = 13.2 14.1-18 complet hemoglo 017 g/dL .0 ed bin 14:15 measure ment (mass/v olum Blood = 41.2 42.0-52 complet hematoc 017 % .0 ed rit 14:15 (volume fractio n) Granulo = 92.3 37.0-80 complet cyte 017 % .0 ed percent 14:15 age Blood = 20.3 1.3-8.0 complet granulo 017 K/mm3 ed cytes 14:15 automat ed count (numb Automat = 0.5 % 0.1-12. complet ed 017 0 ed blood 14:15 eosinop hils/10 0 leukocy t Automat = 0.1 0.0-0.4 complet ed 017 K/mm3 ed blood 14:15 eosinop hil count Baso % = 0.2 % 0.1-2.0 complet 017 ed 14:15 Automat = 0.0 0-0.2 complet ed 017 K/MM3 ed blood 14:15 basophi l count (count/ vo Blood = 22.0 4.8-10. complet leukocy 017 K/MM3 8 ed rosalia 14:15 count (number /volume ) Automat = 14.4 11.5-17 complet ed 017 % .5 ed erythro 14:15 cyte distrib ution width Red = 4.37 4.6-6.2 complet blood 017 M/mm3 ed cell 14:15 count Lipase measurement (09-03-2017 14:15) Lipase = 107 73-393 complet measure 017 U/L ed ment 14:15 Differential panel, method unspecified - (09-03-2017 14:15) LYMPH 5 % 10% - Low complet 017 50% ed 14:15 Platele NORMAL complet ts 017 ed [Presen 14:15 ce] in Blood by Light microsc opy Blood lactic acid measurement (moles/vol (09-03-2017 00:08) Blood = 1.7 0.4-2.0 complet lactic 017 mmol/L ed acid 00:08 measure ment (moles/ vol Lipase measurement (09-03-2017) Lipase = 191 73-393 complet measure 017 U/L ed ment Comprehensive metabolic panel (09-03-2017) Protein = 6.6 6.4-8.2 complet total 017 gm/dL ed ser/raine s ALT = 17 12-78 complet (SGPT) 017 U/L ed ser/raine s Serum = 16 15-37 complet or 017 U/L ed plasma asparta te aminotr ansfera Serum = 138 136-145 complet sodium 017 mmoL/L ed measure ment Serum = 2.9 3.5-5.1 complet potassi 017 mmoL/L ed um measure ment Serum = 131 74-106 complet or 017 mg/dL ed plasma glucose measure ment (mas Serum = 3.8 1.3-3.2 complet globuli 017 gm/dL ed n measure ment (mass/v olume) Estimat = 64 >60 complet ed 017 ML/MIN ed glomeru lar filtrat ion rate (GF Estimat = 56 50-200 complet ion of 017 ML/MIN ed creatin ine renal clearan ce Serum = 1.1 0.70-1. complet or 017 mg/dL 30 ed plasma creatin ine measure ment ( Carbon = 31 21.0-32 complet dioxide 017 mmoL/L .0 ed measure ment Serum = 103 98-107 complet or 017 mmoL/L ed plasma chlorid e measure ment (mo Serum = 8.4 8.5-10. complet or 017 mg/dL 1 ed plasma calcium measure ment (mas Serum = 13 7-18 complet or 017 mg/dL ed plasma urea nitroge n measure men Serum = 0.7 0.2-1.0 complet or 017 mg/dL ed plasma total bilirub in measure m Serum = 95 46-116 complet or 017 U/L ed plasma alkalin e phospha tase serenity Serum = 2.8 3.4-5.0 complet or 017 gm/dL ed plasma albumin measure ment (mas Serum = 0.7 1.1-1.8 complet or 017 ed plasma albumin /globul in mass ra Cardiac enzymes (09-03-2017) Serum = 0.03 0.00-0. complet or 017 ng/mL 06 ed plasma troponi n i.cardi ac measu Serum = 24 39-308 complet or 017 U/L ed plasma creatin e kinase measure m Serum < 0.5 0.0-3.6 complet or 017 ng/mL ed plasma creatin e kinase MB measu Serum = 2.1 0-4.0 complet or 017 U/L ed plasma creatin e kinase MB (CK-M Amylase ser/plas (09-03-2017) Amylase = 56 25-115 complet 017 U/L ed ser/ranie s CBC w auto diff (09-03-2017) Blood = [...] ed blood platele t mean volume serenity Dundy % = 4.2 % 1.7-9.3 complet 017 [...] vo Basic metabolic panel (08-26-2017 07:45) Serum = 140 136-145 complet sodium 017 mmoL/L ed measure 07:45 ment Serum = 2.7 3.5-5.1 complet potassi 017 mmoL/L ed um 07:45 measure ment Serum = 100 74-106 complet or 017 mg/dL ed plasma 07:45 glucose measure ment (mas Estimat = 53 >60 complet ed 017 ML/MIN ed glomeru 07:45 lar filtrat ion rate (GF Serum 08-26-2 = 1.3 0.70-1. complet or 017 mg/dL 30 ed plasma 07:45 creatin ine measure ment ( Carbon 08-26-2 = 35 21.0-32 complet dioxide 017 mmoL/L .0 ed 07:45 measure ment Serum 25-2 = 102 98-107 complet or 017 mmoL/L ed plasma 07:45 chlorid e measure ment (mo Serum 08-26-2 = 8.2 8.5-10. complet or 017 mg/dL 1 ed plasma 07:45 calcium measure ment (mas Serum 25-2 = 24 7-18 complet or 017 mg/dL ed plasma 07:45 urea nitroge n measure men CBC w auto diff (08-26-2017 07:45) Automat 25-2 = 0.6 0.0-0.4 complet ed 017 K/mm3 ed blood 07:45 eosinop hil count Baso % 2 = 0.5 % 0.1-2.0 complet 017 ed 07:45 Automat 25-2 = 0.0 0-0.2 complet ed 017 K/MM3 ed blood 07:45 basophi l count (count/ vo Red 2 = 4.42 4.6-6.2 complet blood 017 M/mm3 ed cell 07:45 count Blood 08-26-2 = 149 142-424 complet platele 017 K/mm3 ed t count 07:45 Automat 08-26-2 = 9.5 7.4-10. complet ed 017 fl 4 ed blood 07:45 platele t mean volume serenity Dundy % 08-26-2 = 8.9 % 1.7-9.3 complet 017 ed 07:45 Absolut 08-26-2 = 0.7 0.1-1.0 complet e 017 K/mm3 ed monocyt 07:45 e count Blood 08-26-2 = 7.3 4.8-10. complet leukocy 017 K/MM3 8 ed rosalia 07:45 count (number /volume ) Automat 08-26-2 = 14.9 11.5-17 complet ed 017 % .5 ed erythro 07:45 cyte distrib ution width Automat 08-26-2 = 93.3 82.2-97 complet ed 017 fl [...] blood 07:45 eosinop hils/10 0 leukocy t CBC W Diff pnl,unspecified Bld (08-19-2017 04:19) Lymphoc 9.9 % 24.0-44 complet ytes/le 017 .0 ed uk NFr 04:19 Bld Auto Neutrop 88.9 % 41.0-71 complet hils/le 017 .0 ed uk NFr 04:19 Bld Auto Platele 195 150-450 complet t # Bld 017 10*3/mm ed Auto 04:19 3 PMV Bld 11.4 fL 6.0-12. complet Auto 017 0 ed 04:19 RDW RBC 53.2 fl 37.0-54 complet Auto 017 .0 ed 04:19 RDW RBC 10-18-2 15.4 % 11.3-14 complet 017 .5 ed Auto-Rt 04:19 o MCHC 10-18-2 31.6 32.0-36 complet RBC 017 g/dL .0 ed Auto-mC 04:19 nc MCH RBC 10-18-2 29.9 pg 27.0-31 complet Qn 017 .0 [...] ed k NFr 04:19 Bld Auto Monocyt 08-19- 0.9 % 0.0-12. complet es/leuk 017 0 ed NFr 04:19 Bld Auto Comp Metab 1998 Pnl SerPl (08-19-2017 04:19) Anion 08-19- 8.0 3.0-11. complet Gap3 017 mmol/L 0 [...] g/dL 80 ed SerPl-m 04:19 Cnc Prot 08-19- 7.5 5.7-8.2 complet SerPl-m 017 g/dL ed Cnc 04:19 Calcium 08-19-2 8.8 8.7-10. complet 017 mg/dL 4 ed XXX-sCn 04:19 c CO2 08-19-2 28.0 20.0-31 complet SerPl-s 017 mmol/L .0 ed Cnc 04:19 Chlorid 08-19- 105 99-109 complet e 017 mmol/L ed SerPl-s 04:19 Cnc Potassi 08-19-2 3.6 3.5-5.5 complet um 017 mmol/L ed Bld-sCn 04:19 c Sodium 141 132-146 complet Bld-sCn 017 mmol/L ed c 04:19 Creat 08-19-2 0.90 0.60-1. complet Bld-mCn 017 mg/dL 30 ed c 04:19 BUN 08-19-2 9 mg/dL 9-23 complet Bld-mCn 017 ed c 04:19 Glucose 08-19- 179 70-100 complet 017 mg/dL ed Bld-mCn 04:19 c Mg Ionized SerPl-mCnc (08-18-2017 14:25) Magnesi 08-18- 1.9 1.3-2.7 complet um 017 mg/dL ed SerPl-m 14:25 Cnc Troponin T SerPl Ql (08-18-2017 12:28) Troponi 08-18-2 0.04 0.00-0. complet n I 017 ng/mL 07 ed SerPl-m 12:28 Cnc Troponin T SerPl Ql (08-18-2017 10:18) Troponi 08-18-2 0.05 0.00-0. complet n I 017 ng/mL 07 ed SerPl-m 10:18 Cnc Lactate SerPl-sCnc (08-18-2017 10:17) D-Lacta 08-18- 1.6 0.5-2.0 complet te 017 mmol/L ed SerPl-s 10:17 Cnc CBC W Diff pnl,unspecified Bld (08-18-2017 10:17) Imm 08-18-2 0.01 0.00-0. complet Granulo 017 10*3/mm 03 ed cytes # 10:17 3 Bld Basophi 08-18-2 0.04 0.00-0. complet ls # 017 10*3/mm 20 ed Bld 10:17 3 Auto Eosinop 08-18-2 0.45 0.00-0. complet hil # 017 10*3/mm 30 ed Bld 10:17 3 Auto Monocyt 08-18-2 0.46 0.00-1. complet es # 017 10*3/mm 00 ed Bld 10:17 3 Auto Lymphoc 08-18-2 0.91 0.60-4. complet ytes # 017 10*3/mm 80 ed Bld 10:17 3 Auto Neutrop 08-18-2 4.90 1.50-8. complet hils # 017 10*3/mm 30 ed Bld 10:17 3 Auto Imm 08-18-2 0.1 % 0.0-0.6 complet Granulo 017 ed cytes/l 10:17 euk NFr Bld Eosinop 08-18-2 6.6 % 0.0-3.0 complet hil/luke 017 ed k NFr 10:17 Bld Auto Monocyt 08-18-2 6.8 % 0.0-12. complet es/leuk 017 0 ed NFr 10:17 Bld Auto Lymphoc 08-18- 13.4 % 24.0-44 complet ytes/le 017 .0 ed uk NFr 10:17 Bld Auto Neutrop 08-18- 72.5 % 41.0-71 complet hils/le 017 .0 ed uk NFr 10:17 Bld Auto Platele 202 150-450 complet t # Bld 017 10*3/mm ed Auto 10:17 3 PMV Bld 11.2 fL 6.0-12. complet Auto 017 0 ed 10:17 RDW RBC 08-18- 54.2 fl 37.0-54 complet Auto 017 .0 ed 10:17 RDW RBC 08-18-2 15.4 % 11.3-14 complet 017 .5 ed Auto-Rt 10:17 o MCHC 08-18- 32.5 32.0-36 complet RBC 017 g/dL .0 ed Auto-mC 10:17 nc MCH RBC 08-18-2 31.0 pg 27.0-31 complet Qn 017 .0 ed Auto 10:17 MCV RBC 08-18-2 95.5 fL 80.0-99 complet Auto 017 .0 ed 10:17 Hct VFr 08-18-2 49.3 % 38.9-50 complet Bld 017 .9 ed Auto 10:17 Hgb 17-2 16.0 13.1-17 complet Bld-mCn 017 g/dL .5 ed c 10:17 RBC # 17-2 5.16 4.20-5. complet Bld 017 10*6/mm 76 ed Auto 10:17 3 WBC 6.77 3.50-10 complet nRBC 017 10*3/mm .80 ed cor # 10:17 3 Bld Basophi 0.6 % 0.0-1.0 complet ls/leuk 017 ed NFr 10:17 Bld Auto BNP SerPl-mCnc (08-18-2017 10:17) BNP 269.0 0.0-100 [...] complet 017 mg/dL ed Bld-mCn 10:17 c CK SerPl-cCnc (08-18-2017 10:17) CK 64 U/L 26-174 complet SerPl-c 017 ed Cnc 10:17 Potassium SerPl-sCnc (07-21-2017 18:47) Potassi 3.7 3.5-5.5 complet um 017 mmol/L ed Bld-sCn 18:47 c CBC W Diff pnl,unspecified Bld (07-21-2017 05:26) WBC 7.28 3.50-10 complet nRBC 017 10*3/mm .80 ed cor # 05:26 3 Bld RBC # 3.84 4.20-5. complet Bld 017 10*6/mm 76 ed Auto 05:26 3 Hgb 11.6 13.1-17 complet Bld-mCn 017 g/dL .5 ed c 05:26 Hct VFr 35.8 % 38.9-50 complet Bld 017 .9 ed Auto 05:26 MCV RBC 93.2 fL 80.0-99 complet Auto 017 .0 ed 05:26 MCH RBC 30.2 pg 27.0-31 complet Qn 017 .0 ed Auto 05:26 MCHC 32.4 32.0-36 complet RBC 017 g/dL .0 ed Auto-mC 05:26 nc RDW RBC 09-19-2 16.8 % 11.3-14 complet 017 .5 ed Auto-Rt 05:26 o RDW RBC 19-2 57.4 fl 37.0-54 complet Auto 017 .0 ed 05:26 PMV Bld 19-2 11.0 fL 6.0-12. complet Auto 017 0 ed 05:26 Platele 19-2 203 150-450 complet t # Bld 017 10*3/mm ed Auto 05:26 3 Neutrop 19-2 56.0 % 41.0-71 complet hils/le 017 .0 ed uk NFr 05:26 Bld Auto Lymphoc -19-2 22.4 % 24.0-44 complet ytes/le 017 .0 ed uk NFr 05:26 Bld Auto Monocyt 19-2 12.4 % 0.0-12. complet es/leuk 017 0 ed NFr 05:26 Bld Auto Eosinop 09-19-2 8.5 % 0.0-3.0 complet hil/luke 017 ed k NFr 05:26 Bld Auto Basophi -19-2 0.4 % 0.0-1.0 complet ls/leuk 017 ed NFr 05:26 Bld Auto Imm 09-19-2 0.3 % 0.0-0.6 complet Granulo 017 ed cytes/l 05:26 euk NFr Bld Neutrop -19-2 4.08 1.50-8. complet hils # 017 10*3/mm 30 ed Bld 05:26 3 Auto Lymphoc 09-19-2 1.63 0.60-4. complet ytes # 017 10*3/mm 80 ed Bld 05:26 3 Auto Monocyt 09-19-2 0.90 0.00-1. complet es # 017 10*3/mm 00 ed Bld 05:26 3 Auto Eosinop 09-19-2 0.62 0.00-0. complet hil # 017 10*3/mm 30 ed Bld 05:26 3 Auto Basophi 09-19-2 0.03 0.00-0. complet ls # 017 10*3/mm 20 ed Bld 05:26 3 Auto Imm 09-19-2 0.02 0.00-0. complet Granulo 017 10*3/mm 03 ed cytes # 05:26 3 Bld Bas Metab 2000 Pnl SerPl (07-21-2017 05:26) Glucose 89 70-100 complet 017 mg/dL ed Bld-mCn 05:26 c BUN 8 mg/dL 9-23 complet Bld-mCn 017 ed c 05:26 Creat 0.80 0.60-1. complet Bld-mCn 017 mg/dL 30 ed c 05:26 Sodium 139 132-146 complet Bld-sCn 017 mmol/L ed c 05:26 Potassi 2.8 3.5-5.5 complet um 017 mmol/L ed Bld-sCn 05:26 c Chlorid 104 99-109 complet e 017 mmol/L ed SerPl-s 05:26 Cnc CO2 28.0 20.0-31 complet SerPl-s 017 mmol/L .0 ed Cnc 05:26 Calcium 8.5 8.7-10. complet 017 mg/dL 4 ed XXX-sCn 05:26 c GFR/BSA 93 >60 complet .pred 017 mL/min/ ed SerPl 05:26 1.73 MDRD-Ar VRat BUN/Cre 10.0 7.0-25. complet at 017 0 ed SerPl 05:26 Anion 7.0 3.0-11. complet Gap3 017 mmol/L 0 ed SerPl-s 05:26 Cnc Potassium SerPl-sCnc (07-20-2017 08:53) Potassi 3.8 3.5-5.5 complet um 017 mmol/L ed Bld-sCn 08:53 c CBC (hemogram) Bld Auto (07-20-2017 05:34) WBC 9.74 3.50-10 complet nRBC 017 10*3/mm .80 ed cor # 05:34 3 Bld RBC # 3.69 4.20-5. complet Bld 017 10*6/mm 76 ed Auto 05:34 3 Hgb 11.1 13.1-17 complet Bld-mCn 017 g/dL .5 ed c 05:34 Hct VFr 34.3 % 38.9-50 complet Bld 017 .9 ed Auto 05:34 MCV RBC 93.0 fL 80.0-99 complet Auto 017 .0 ed 05:34 MCH RBC 30.1 pg 27.0-31 complet Qn 017 .0 ed Auto 05:34 MCHC 32.4 32.0-36 complet RBC 017 g/dL .0 ed Auto-mC 05:34 nc RDW RBC 16.9 % 11.3-14 complet 017 .5 ed Auto-Rt 05:34 o RDW RBC 57.8 fl 37.0-54 complet Auto 017 .0 ed 05:34 PMV Bld 11.5 fL 6.0-12. complet Auto 017 0 ed 05:34 Platele 219 150-450 complet t # Bld 017 10*3/mm ed Auto 05:34 3 Bas Metab 2000 Pnl SerPl (07-20-2017 05:34) Creat 0.90 0.60-1. complet Bld-mCn 017 mg/dL 30 ed c 05:34 Sodium 139 132-146 complet Bld-sCn 017 mmol/L ed c 05:34 Potassi 3.3 3.5-5.5 complet um 017 mmol/L ed Bld-sCn 05:34 c Chlorid 104 99-109 complet e 017 mmol/L ed SerPl-s 05:34 Cnc CO2 31.0 20.0-31 complet SerPl-s 017 mmol/L .0 ed Cnc 05:34 Calcium 8.3 8.7-10. complet 017 mg/dL 4 ed XXX-sCn 05:34 c GFR/BSA 81 >60 complet .pred 017 mL/min/ ed SerPl 05:34 1.73 MDRD-Ar VRat BUN/Cre 12.2 7.0-25. complet at 017 0 ed SerPl 05:34 Anion 4.0 3.0-11. complet Gap3 017 mmol/L 0 ed SerPl-s 05:34 Cnc Glucose 88 70-100 complet 017 mg/dL ed Bld-mCn 05:34 c BUN 11 9-23 complet Bld-mCn 017 mg/dL ed c 05:34 Hgb A1c Bld (07-20-2017 05:34) Hgb A1c 5.00 % 4.80-5. complet MFr 017 60 ed Bld 05:34 BNP SerPl-mCnc (07-20-2017 05:34) BNP 240.0 0.0-100 complet SerPl-m 017 pg/mL .0 ed Cnc 05:34 UA Dipstick Pnl Ur (07-19-2017 19:34) Color [id number] Yellow, complet Ur 017 09 Straw ed 19:34 Yellow color SCT Clarity [id number] Clear complet Ur 017 01 ed 19:34 Clear SCT pH Ur 5.5 5.0-8.0 complet Strip.a 017 ed uto 19:34 Sp Gr 1.012 1.001-1 complet Ur 017 .030 ed Strip 19:34 Glucose [id number] Negativ complet Ur 017 06 e ed Strip-m 19:34 Trace Cnc SCT Ketones [id number] Negativ complet Ur Ql 017 09 e ed Strip 19:34 Negativ e SCT Bilirub [id number] Negativ complet Ur Ql 017 09 e ed Strip 19:34 Negativ e SCT Hgb Ur [id number] Negativ complet Ql 017 09 e ed Strip.a 19:34 Negativ uto e SCT Prot Ur [id number] Negativ complet Ql 017 09 e ed Strip 19:34 Negativ e SCT Leukocy [id number] Negativ complet te 017 09 e ed esteras 19:34 Negativ e Ur Ql e SCT Strip.a uto Nitrite [id number] Negativ complet Ur Ql 017 09 e ed Strip 19:34 Negativ e SCT Urobili 1.0 0.2 - complet nogen 017 E.U./dL 1.0 ed Ur Ql 19:34 E.U./dL Strip Gas Pnl BldA (07-19-2017 19:05) Bdy Arteria complet site 017 l: left ed 19:05 radial Arteria [id number] complet l 017 09 Not ed patency 19:05 applica Wrist ble SCT a pH BldA 7.481 7.350-7 complet 017 pH .450 ed 19:05 units pCO2 40.6 mm 35.0-48 complet BldA 017 Hg .0 ed 19:05 pO2 63.7 mm 83.0-10 complet BldA 017 Hg 8.0 ed 19:05 HCO3 30.3 20.0-26 complet BldA-sC 017 mmol/L .0 ed nc 19:05 Base 6.2 0.0-2.0 complet excess 017 mmol/L ed BldA 19:05 Calc-sC nc SaO2 % 91.5 % complet BldCoA 017 ed 19:05 Hgb 12.3 13.5-17 complet BldA-mC 017 g/dL .5 ed nc 19:05 Hct VFr 37.8 % complet Bld 017 ed 19:05 OxyHgb 91.5 % 94-99 complet MFr 017 ed BldV 19:05 MetHgb 0.90 % 0.00-1. complet Bld Ql 017 50 ed 19:05 COHgb 1.7 % 0-2 complet MFr Bld 017 ed 19:05 CO2 31.5 22-33 complet BldA-sC 017 ed nc 19:05 Horowit 28 % complet z index 017 ed 19:05 Bld+IhG -Rto Lactate SerPl-sCnc (07-19-2017 18:50) D-Lacta 1.7 0.5-2.0 complet te 017 mmol/L ed SerPl-s 18:50 Cnc Bacteria Bld Cult (07-19-2017 18:50) Bacteri No active a XXX 017 growth Aerobe 18:50 at 3 Cult days Bacteria Bld Cult (07-19-2017 18:50) Bacteri No complet a XXX 017 growth ed Aerobe 18:50 at 5 Cult days Troponin T SerPl Ql (07-19-2017 18:13) Troponi 0.03 0.00-0. complet n I 017 ng/mL 07 ed SerPl-m 18:13 Cnc Mg Ionized SerPl-mCnc (07-19-2017 17:55) Magnesi 1.9 1.3-2.7 complet um 017 mg/dL ed SerPl-m 17:55 Cnc Comp Metab 1998 Pnl SerPl (07-19-2017 17:55) Glucose 151 70-100 complet 017 mg/dL ed Bld-mCn 17:55 c BUN 14 9-23 complet Bld-mCn 017 mg/dL ed c 17:55 Creat 1.00 0.60-1. complet Bld-mCn 017 mg/dL 30 ed c 17:55 Sodium 138 132-146 complet Bld-sCn 017 mmol/L ed c 17:55 Potassi 2.9 3.5-5.5 complet um 017 mmol/L ed Bld-sCn 17:55 c Chlorid 99 99-109 complet e 017 mmol/L ed SerPl-s 17:55 Cnc CO2 30.0 20.0-31 complet SerPl-s 017 mmol/L .0 ed Cnc 17:55 Calcium 8.9 8.7-10. complet 017 mg/dL 4 ed XXX-sCn 17:55 c Prot 7.7 5.7-8.2 complet SerPl-m 017 g/dL ed Cnc 17:55 Albumin 3.80 3.20-4. complet 017 g/dL 80 ed SerPl-m 17:55 Cnc ALT 15 U/L 7-40 complet SerPl w 017 ed 17:55 P-5'-P- cCnc AST 21 U/L 0-33 complet SerPl-c 017 ed Cnc 17:55 ALP 98 U/L 25-100 complet SerPl-c 017 ed Cnc 17:55 Bilirub 1.6 0.3-1.2 complet 017 mg/dL ed SerPl-m 17:55 Cnc GFR/BSA 72 >60 complet .pred 017 mL/min/ ed SerPl 17:55 1.73 MDRD-Ar VRat Globuli 3.9 complet n Ur 017 gm/dL ed Elph-mC 17:55 nc Albumin 1.0 1.5-2.5 complet /Glob 017 g/dL ed SerPl 17:55 BUN/Cre 14.0 7.0-25. complet at 017 0 ed SerPl 17:55 Anion 9.0 3.0-11. complet Gap3 017 mmol/L 0 ed SerPl-s 17:55 Cnc CBC W Diff pnl,unspecified Bld (07-19-2017 17:55) WBC 14.29 3.50-10 complet nRBC 017 10*3/mm .80 ed cor # 17:55 3 Bld RBC # 4.33 4.20-5. complet Bld 017 10*6/mm 76 ed Auto 17:55 3 Hgb 12.9 13.1-17 complet Bld-mCn 017 g/dL .5 ed c 17:55 Hct VFr 40.5 % 38.9-50 complet Bld 017 .9 ed Auto 17:55 MCV RBC 93.5 fL 80.0-99 complet Auto 017 .0 ed 17:55 MCH RBC 29.8 pg 27.0-31 complet Qn 017 .0 ed Auto 17:55 MCHC 31.9 32.0-36 complet RBC 017 g/dL .0 ed Auto-mC 17:55 nc RDW RBC 07-19- 16.7 % 11.3-14 complet 017 .5 ed Auto-Rt 17:55 o RDW RBC 07-19- 57.4 fl 37.0-54 complet Auto 017 .0 ed 17:55 PMV Bld 10.7 fL 6.0-12. complet Auto 017 0 ed 17:55 Platele 218 150-450 complet t # Bld 017 10*3/mm ed Auto 17:55 3 Neutrop 07-19-2 84.1 % 41.0-71 complet hils/le 017 .0 ed uk NFr 17:55 Bld Auto Lymphoc 5.2 % 24.0-44 complet ytes/le 017 .0 ed uk NFr 17:55 Bld Auto Monocyt 9.3 % 0.0-12. complet es/leuk 017 0 ed NFr 17:55 Bld Auto Eosinop 07-19- 1.0 % 0.0-3.0 complet hil/luke 017 ed k NFr 17:55 Bld Auto Basophi 0.2 % 0.0-1.0 complet ls/leuk 017 ed NFr 17:55 Bld Auto Imm 0.2 % 0.0-0.6 complet Granulo 017 ed cytes/l 17:55 euk NFr Bld Neutrop 12.01 1.50-8. complet hils # 017 10*3/mm 30 ed Bld 17:55 3 Auto Lymphoc 07-19-2 0.74 0.60-4. complet ytes # 017 10*3/mm 80 ed Bld 17:55 3 Auto Monocyt 07-19-2 1.33 0.00-1. complet es # 017 10*3/mm 00 ed Bld 17:55 3 Auto Eosinop 07-19-2 0.15 0.00-0. complet hil # 017 10*3/mm 30 ed Bld 17:55 3 Auto Basophi 07-19-2 0.03 0.00-0. complet ls # 017 10*3/mm 20 ed Bld 17:55 3 Auto Imm 07-19-2 0.03 0.00-0. complet Granulo 017 10*3/mm 03 ed cytes # 17:55 3 Bld Bacteria Bld Cult (07-19-2017 17:55) Bacteri No active a XXX 017 growth Aerobe 17:55 at 3 Cult days Bacteria Bld Cult (07-19-2017 17:55) Bacteri 09-17-2 No complet a XXX 017 growth ed Aerobe 17:55 at 5 Cult days Differential panel, method unspecified - (04-17-2017 11:33) LYMPH 10 % 10% - Normal complet 017 50% ed 11:33 Platele NORMAL complet ts 017 ed [Presen 11:33 ce] in Blood by Light microsc opy
--- OUTSIDE RECORDS SUMMARY | 2017-10-02 16:00 | External Medical Summary Rpt | CCD ---
Author Author , [facility]NA Organization [facility] Address Unknown Phone [email or web address] Purpose Continuity of Care Document - 04-17-2017 [...] ENCOUNTER Z74.09 Other reduced mobility Z79.899 OTHER VAMPER (CURRENT) DRUG THERAPY Results Labs Lab Lab [...] 12 Pnl XXX PCR (09-04-2017 18:38) COMP [id number] complet RESP 017 09 ed PCR 18:38 negativ PANEL e RESULT: (qualif ier value) SCT NEGRP NEGATIV E for all analyte s L MDRO Wnd (09-04-2017 18:38) Bacteri [id number] complet a XXX 017 00 not ed [...] blood 06:32 platele t mean volume serenity Taylor % = 5.1 % 1.7-9.3 complet 017 [...] (count/ vo Sputum culture (09-04-2017 05:36) Sputum [id number] complet culture 017 5 Yeast ed 05:36 [...] blood 14:15 platele t mean volume serenity Taylor % = 3.7 % 1.7-9.3 complet 017 [...] 25-115 complet 017 U/L ed ser/raine s CBC w auto diff (09-03-2017) Blood [...] ed blood platele t mean volume serenity Taylor % = 4.2 % 1.7-9.3 complet 017 [...] blood 07:45 platele t mean volume serenity Taylor % 08-26-2 = 8.9 % 1.7-9.3 complet [...] UA Dipstick Pnl Ur (07-19-2017 19:34) Color [id number] Yellow, complet Ur 017 09 Straw ed 19:34 Yellow color SCT Clarity [id number] Clear complet Ur 017 01 ed 19:34 Clear SCT pH Ur 5.5 5.0-8.0 complet Strip.a 017 ed uto 19:34 Sp Gr 1.012 1.001-1 complet Ur 017 .030 ed Strip 19:34 Glucose [id number] Negativ complet Ur 017 06 e ed Strip-m 19:34 Trace Cnc SCT Ketones [id number] Negativ complet Ur Ql 017 09 e ed Strip 19:34 Negativ e SCT Bilirub [id number] Negativ complet Ur Ql 017 09 e ed Strip 19:34 Negativ e SCT Hgb Ur [id number] Negativ complet Ql 017 09 e ed Strip.a 19:34 Negativ uto e SCT Prot Ur [id number] Negativ complet Ql 017 09 e ed Strip 19:34 Negativ e SCT Leukocy 1513714 Negativ complet te 017 09 e ed esteras 19:34 Negativ e Ur Ql e SCT Strip.a uto Nitrite [id number] Negativ complet Ur Ql 017 09 e ed Strip 19:34 Negativ e SCT Urobili 1.0 0.2 - complet nogen 017 E.U./dL 1.0 ed Ur Ql 19:34 E.U./dL Strip Gas Pnl BldA (07-19-2017 19:05) Bdy Arteria complet site 017 l: left ed 19:05 radial Arteria [id number] complet l 017 09 Not ed patency [...]
--- OUTSIDE RECORDS SUMMARY | 2017-10-02 16:01 | External Medical Summary Rpt | CCD ---
Demographics Preferred Language Kazakh Marital Status Unknown Church Affiliation Unknown Race Unknown Ethnic Group Unknown Author Author , MCKENNA ANDRES Address Unknown Phone [email or web address] Immunization Name Date Rout CVX Reac Dose Comm Prov Is Faci e tion ent ider Refu lity Give sed n Td 03-0 9 999 Hist H149 No H149 (servando 9-19 [facility] lt), 97 al Info adso rmat rbed ion - Sour ce Unsp ecif ied
--- OUTSIDE RECORDS SUMMARY | 2017-10-02 16:01 | External Medical Summary Rpt | CCD ---
Demographics Preferred Language Mongolian Marital Status Unknown Adventist Affiliation Unknown Race Unknown Ethnic Group Unknown Author Author , MCKENNA ANDRES Address Unknown Phone [email or web address] Immunization Name Date Rout CVX Reac Dose Comm Prov Is Faci e tion ent ider Refu lity Give sed n Td 03-0 9 999 Hist H149 No H149 (servando 9-19 [facility] lt), 97 al Info adso rmat rbed ion - Sour ce Unsp ecif ied
--- OUTSIDE RECORDS SUMMARY | 2017-10-02 16:03 | External Medical Summary Rpt ---
Author Author [facility] Woodall, [employer] Address Unknown Phone Unavailable Results Lactate [Moles/volume] in Blood Observa Value Referen Units Interpr Notes Date tion ce etation Range Lactate 0.4 - 2.0 mmol/L High An Oct 02 [Moles/vo elevated 2017 3:00 lume] in Lactic PM Blood Acid is suggestiv e of sepsis and shouldbe repeated within 6 hours of initial testing. Comprehensive metabolic 2000 panel in Serum or Plasma Observa Value Referen Units Interpr Notes Date tion ce etation Range Albumin/G 1.1 - 1.8 No Low No Oct 02 lobulin informati informati 2016 3:00 [Mass on in on in PM ratio] in source source Serum or data data Plasma Albumin 3.4 - 5.0 gm/dL Low No Oct 02 [Mass/vol informati 2017 3:00 ume] in on in PM Serum or source Plasma data Alkaline 46 - 116 U/L Normal No Oct 02 phosphata informati 2017 3:00 se on in PM [Enzymati source c data activity/ volume] in Serum or Plasma Bilirubin 0.2 - 1.0 mg/dL Normal No Oct 02 .total informati 2017 3:00 [Mass/vol on in PM ume] in source Serum or data Plasma Urea 7 - 18 mg/dL Normal No Oct 02 nitrogen informati 2017 3:00 [Mass/vol on in PM ume] in source Serum or data Plasma Calcium 8.5 - mg/dL Normal No Oct 02 [Mass/vol 10.1 informati 2017 3:00 ume] in on in PM Serum or source Plasma data Chloride 98 - 107 mmoL/L Normal No Oct 02 [Moles/vo informati 2017 3:00 lume] in on in PM Serum or source Plasma data Carbon 21.0 - mmoL/L Normal No Oct 02 dioxide, 32.0 informati 2017 3:00 total on in PM [Moles/vo source lume] in data Serum or Plasma Creatinin 0.70 - mg/dL High No Dec 1 e 1.30 informati 2016 3:00 [Mass/vol on in PM ume] in source Serum or data Plasma Creatinin 50 - 200 ML/MIN Low No Oct 02 e renal inform2016 3:00 clearance on in PM source predicted data by Cockcroft -Gault formula Estimated >60 ML/MIN No REFERENCE Oct 02 informati RANGE: 2017 3:00 glomerula on in >60 PM r source ML/MIN/1. filtratio data 73 SQUARE n rate METERSIf (GF this patient is -A merican, then multiply theresult by 1.210. Globulin 1.3 - 3.2 gm/dL High No Oct 02 [Mass/vol informati 2016 3:00 ume] in on in PM Serum source data Glucose 74 - 106 mg/dL High No Oct 02 [Mass/vol informati 2016 3:00 ume] in on in PM Serum or source Plasma data Potassium 3.5 - 5.1 mmoL/L Normal No Oct 022016 3:00 [Moles/vo on in PM lume] in source Serum or data Plasma Sodium 136 - 145 mmoL/L Normal No Oct 02 [Moles/vo ati 2016 3:00 lume] in on in PM Serum or source Plasma data Aspartate 15 - 37 U/L Normal No Oct 022016 3:00 aminotran on in PM sferase source [Enzymati data c activity/ volume] in Serum or Plasma Alanine 12 - 78 U/L Normal No Oct 02 aminotran informati 2016 3:00 sferase on in PM [Enzymati source c data activity/ volume] in Serum or Plasma Protein 6.4 - 8.2 gm/dL Normal No Oct 02 [Mass/vol informati 2016 3:00 ume] in on in PM Serum or source Plasma data CBC W Auto Differential panel in Blood Observa Value Referen Units Interpr Notes Date tion ce etation Range Basophils 0 - 0.2 K/MM3 Normal No Oct 02 inform2016 3:00 [#/volume on in PM ] in source Blood by data Automated count Basophils 0.1 - 2.0 % Normal No Oct 02 /100 informati 2016 3:00 leukocyte on in PM s in source Blood by data Automated count Eosinophi 0.0 - 0.4 K/mm3 High No Oct 02 ls 2016 3:00 [#/volume on in PM ] in source Blood by data Automated count Eosinophi 0.1 - % High No Oct 02 ls/100 12.0 2016 3:00 leukocyte on in PM s in source Blood by data Automated count Granulocy 1.3 - 8.0 K/mm3 Normal No Oct 02 rosalia 2016 3:00 [#/volume on in PM ] in source Blood by data Automated count Granulocy 37.0 - % Normal No Oct 02 rosalia/100 80.0 2016 3:00 leukocyte on in PM s in source Blood by data Automated count Hematocri 42.0 - % Low No Oct 02 t [Volume 52.0 2016 3:00 on in PM Fraction] source of Blood data Hemoglobi 14.1 - g/dL Low No Oct 02 n 18.0 2016 3:00 [Mass/vol on in PM ume] in source Blood data Lymphocyt 0.7 - 4.5 K/mm3 Normal No Oct 02 es 2016 3:00 [#/volume on in PM ] in source Unspecifi data ed specimen by Automated count Lymphocyt 10 - 50 % Normal No Oct 02 es 2016 3:00 [#/volume on in PM ] in source Unspecifi data ed specimen by Automated count Erythrocy 27 - 31.2 pg Normal No Oct 02 te mean 2016 3:00 corpuscul on in PM ar source hemoglobi data n [Entitic mass] Erythrocy 31.8 - g/dl Normal No Oct 02 te mean 35.4 2016 3:00 corpuscul on in PM ar source hemoglobi data n concentra tion [Mass/vol ume] by Automated count Erythrocy 82.2 - fl Normal No Oct 02 te mean 97.8 2016 3:00 corpuscul on in PM ar volume source [Entitic data volume] by Automated count Monocytes 0.1 - 1.0 K/mm3 Normal No Oct 022016 3:00 [#/volume on in PM ] in source Blood by data Automated count Monocytes 1.7 - 9.3 % Normal No Oct 02 /100 inform2016 3:00 leukocyte on in PM s in source Blood by data Automated count Platelet 7.4 - fl Normal No Oct 02 mean 10.4 2016 3:00 volume on in PM [Entitic source volume] data in Blood by Automated count Platelets 142 - 424 K/mm3 Normal No Oct 02 informati 2016 3:00 [#/volume on in PM ] in source Blood data Erythrocy 4.6 - 6.2 M/mm3 Low No Oct 02 rosalia informati 2016 3:00 [#/volume on in PM ] in source Amniotic data fluid Erythrocy 11.5 - % Normal No Oct 02 te 17.5 informati 2016 3:00 distribut on in PM ion width source [Entitic data volume] by Automated count Leukocyte 4.8 - K/MM3 Normal No Oct 02 s 10.8 informati 2016 3:00 [#/volume on in PM ] in source Blood data Basic metabolic panel in Blood Observa Value Referen Units Interpr Notes Date tion ce etation Range Urea 7 - 18 mg/dL Normal No Sep 10 nitrogen informati 2016 [Mass/vol on in 11:06 AM ume] in source Serum or data Plasma Calcium 8.5 - mg/dL Normal No Sep 10 [Mass/vol 10.1 informati 2016 ume] in on in 11:06 AM Serum or source Plasma data Chloride 98 - 107 mmoL/L High No Sep 10 [Moles/vo informati 2016 lume] in on in 11:06 AM Serum or source Plasma data Carbon 21.0 - mmoL/L Normal No Sep 10 dioxide, 32.0 informati 2016 total on in 11:06 AM [Moles/vo source lume] in data Serum or Plasma Creatinin 0.70 - mg/dL Normal No Sep 10 e 1.30 informati 2016 [Mass/vol on in 11:06 AM ume] in source Serum or data Plasma Estimated >60 ML/MIN No REFERENCE Sep 10 informati RANGE: 2017 glomerula on in >60 11:06 AM r source ML/MIN/1. filtratio data 73 SQUARE n rate METERSIf (GF this patient is -A merican, then multiply theresult by 1.210. Glucose 74 - 106 mg/dL Normal No Sep 10 [Mass/vol informati 2016 ume] in on in 11:06 AM Serum or source Plasma data Potassium 3.5 - 5.1 mmoL/L Normal No Sep 10 inform2016 [Moles/vo on in 11:06 AM lume] in source Serum or data Plasma Sodium 136 - 145 mmoL/L Normal No Nov 9 [Moles/vo informati 2017 lume] in on in 11:06 AM Serum or source Plasma data Bacteria identified in Sputum by Culture Observa Value Referen Units Interpr Notes Date tion ce etation Range Collected by nurse? Y Hold specimen in OE? N Bacteri LARGE No No No No Sep 3 a AMOUNT informa informa informa informa 2016 identif OF tion in tion in tion in tion in 6:36 AM ied in YEAST source source source source Sputum NOTED. data data data data by PLEASE Culture CONTACT LAB IF FURTHER Bacteri ID No No No No Sep 3 a REQUIRE informa informa informa informa 2016 identif D. LAB tion in tion in tion in tion in 6:36 AM ied in WILL source source source source Sputum HOLD data data data data by YEAST Culture FOR 5 DAYS. Bacteri Yeast No No No No Sep 3 a informa informa informa informa 2016 identif tion in tion in tion in tion in 6:36 AM ied in source source source source Sputum data data data data by Culture Basic metabolic panel in Blood Observa Value Referen Units Interpr Notes Date ti ce etation Range Urea 7 - 18 mg/dL No No Sep 3 nitrogen informati informati 2017 6:32 [Mass/vol on in on in AM ume] in source source Serum or data data Plasma Calcium 8.5 - mg/dL Normal No Sep 3 [Mass/vol 10.1 informati 2017 6:32 ume] in on in AM Serum or source Plasma data Chloride 98 - 107 mmoL/L Normal No Sep 3 [Moles/vo informati 2016 6:32 lume] in on in AM Serum or source Plasma data Carbon 21.0 - mmoL/L Normal No Sep 3 dioxide, 32.0 informati 2017 6:32 total on in AM [Moles/vo source lume] in data Serum or Plasma Creatinin 0.70 - mg/dL Normal No Sep 3 e 1.30 informati 2017 6:32 [Mass/vol on in AM ume] in source Serum or data Plasma Creatinin 50 - 200 ML/MIN Normal No Sep 3 e renal informati 2017 6:32 clearance on in AM source predicted data by Cockcroft -Gault formula Estimated >60 ML/MIN No REFERENCE Nov 3 informati RANGE: 2017 6:32 glomerula on in >60 AM r source ML/MIN/1. filtratio data 73 SQUARE n rate METERSIf (GF this patient is -A merican, then multiply theresult by 1.210. Glucose 74 - 106 mg/dL High No Sep 3 [Mass/vol informati 2017 6:32 ume] in on in AM Serum or source Plasma data Potassium 3.5 - 5.1 mmoL/L Low Nov 3 2017 6:32 [Moles/vo CRITICAL AM lume] in RESULTS Serum or Plasma RESU LTS CALLED TO: [email or web address] 09/04/17 0704 [place],Rich sully Sodium 136 - 145 mmoL/L Normal No Sep 3 [Moles/vo informati 2017 6:32 lume] in on in AM Serum or source Plasma data CBC W Auto Differential panel in Blood Observa Value Referen Units Interpr Notes Date tion ce etation Range Basophils 0 - 0.2 K/MM3 Normal No Sep 3 informati 2016 6:32 [#/volume on in AM ] in source Blood by data Automated count Basophils 0.1 - 2.0 % Normal No Nov 3 /100 informati 2017 6:32 leukocyte on in AM s in source Blood by data Automated count Eosinophi 0.0 - 0.4 K/mm3 Normal No Sep 3 ls informati 2016 6:32 [#/volume on in AM ] in source Blood by data Automated count Eosinophi 0.1 - % Normal No Sep 3 ls/100 12.0 informati 2016 6:32 leukocyte on in AM s in source Blood by data Automated count Granulocy 1.3 - 8.0 K/mm3 High No Sep 3 rosalia informati 2017 6:32 [#/volume on in AM ] in source Blood by data Automated count Granulocy 37.0 - % High No Sep 3 rosalia/100 80.0 informati 2017 6:32 leukocyte on in AM s in source Blood by data Automated count Hematocri 42.0 - % Low No Sep 3 t [Volume 52.0 informati 2017 6:32 on in AM Fraction] source of Blood data Hemoglobi 14.1 - g/dL Low No Sep 3 n 18.0 informati 2016 6:32 [Mass/vol on in AM ume] in source Blood data Lymphocyt 0.7 - 4.5 K/mm3 Normal No Sep 3 es informati 2017 6:32 [#/volume on in AM ] in source Unspecifi data ed specimen by Automated count Lymphocyt 10 - 50 % Low No Sep 3 es informati 2017 6:32 [#/volume on in AM ] in source Unspecifi data ed specimen by Automated count Erythrocy 27 - 31.2 pg High No Sep 3 te mean informati 2017 6:32 corpuscul on in AM ar source hemoglobi data n [Entitic mass] Erythrocy 31.8 - g/dl Normal No Sep 3 te mean 35.4 informati 2017 6:32 corpuscul on in AM ar source hemoglobi data n concentra tion [Mass/vol ume] by Automated count Erythrocy 82.2 - fl Normal No Sep 3 te mean 97.8 informati 2017 6:32 corpuscul on in AM ar volume source [Entitic data volume] by Automated count Monocytes 0.1 - 1.0 K/mm3 High No Sep 3 informati 2017 6:32 [#/volume on in AM ] in source Blood by data Automated count Monocytes 1.7 - 9.3 % Normal No Sep 3 /100 informati 2017 6:32 leukocyte on in AM s in source Blood by data Automated count Platelet 7.4 - fl Normal No Sep 3 mean 10.4 informati 2017 6:32 volume on in AM [Entitic source volume] data in Blood by Automated count Platelets 142 - 424 K/mm3 Normal No Sep 3 informati 2017 6:32 [#/volume on in AM ] in source Blood data Erythrocy 4.6 - 6.2 M/mm3 Low No Sep 3 rosalia informati 2017 6:32 [#/volume on in AM ] in source Amniotic data fluid Erythrocy 11.5 - % Normal No Sep 3 te 17.5 informati 2017 6:32 distribut on in AM ion width source [Entitic data volume] by Automated count Leukocyte 4.8 - K/MM3 High No Nov 3 s 10.8 alert informati 2017 6:32 [#/volume on in AM ] in source Blood data CBC W Auto Differential panel in Blood Observa Value Referen Units Interpr Notes Date tion ce etation Range Basophils 0 - 0.2 K/MM3 Normal No Sep 2 informati 2017 2:15 [#/volume on in PM ] in source Blood by data Automated count Basophils 0.1 - 2.0 % Normal No Nov 2 /100 informati 2016 2:15 leukocyte on in PM s in source Blood by data Automated count Eosinophi 0.0 - 0.4 K/mm3 Normal No Nov 2 ls informati 2016 2:15 [#/volume on in PM ] in source Blood by data Automated count Eosinophi 0.1 - % Normal No Nov 2 ls/100 12.0 inform2016 2:15 leukocyte on in PM s in source Blood by data Automated count Granulocy 1.3 - 8.0 K/mm3 High No Nov 2 rosalia informati 2016 2:15 [#/volume on in PM ] in source Blood by data Automated count Granulocy 37.0 - % High No Nov 2 rosalia/100 80.0 informati 2016 2:15 leukocyte on in PM s in source Blood by data Automated count Hematocri 42.0 - % Low No Sep 2 t [Volume 52.0 2016 2:15 on in PM Fraction] source of Blood data Hemoglobi 14.1 - g/dL Low No Sep 2 n 18.0 2016 2:15 [Mass/vol on in PM ume] in source Blood data Lymphocyt 0.7 - 4.5 K/mm3 Normal No Nov 2 es 2016 2:15 [#/volume on in PM ] in source Unspecifi data ed specimen by Automated count Lymphocyt 10 - 50 % Low No Sep 2 es 2016 2:15 [#/volume on in PM ] in source Unspecifi data ed specimen by Automated count Erythrocy 27 - 31.2 pg Normal No Nov 2 te mean 2016 2:15 corpuscul on in PM ar source hemoglobi data n [Entitic mass] Erythrocy 31.8 - g/dl Normal No Nov 2 te mean 35.4 ati 2016 2:15 corpuscul on in PM ar source hemoglobi data n concentra tion [Mass/vol ume] by Automated count Erythrocy 82.2 - fl Normal No Sep 2 te mean 97.8 ati 2016 2:15 corpuscul on in PM ar volume source [Entitic data volume] by Automated count Monocytes 0.1 - 1.0 K/mm3 Normal No Nov 2 2016 2:15 [#/volume on in PM ] in source Blood by data Automated count Monocytes 1.7 - 9.3 % Normal No Nov 2 /100 2016 2:15 leukocyte on in PM s in source Blood by data Automated count Platelet 7.4 - fl Normal No Sep 2 mean 10.4 2016 2:15 volume on in PM [Entitic source volume] data in Blood by Automated count Platelets 142 - 424 K/mm3 Normal No Nov 2 2016 2:15 [#/volume on in PM ] in source Blood data Erythrocy 4.6 - 6.2 M/mm3 Low No Sep 2 rosalia ati 2016 2:15 [#/volume on in PM ] in source Amniotic data fluid Erythrocy 11.5 - % Normal No Sep 2 te 17.5 informati 2016 2:15 distribut on in PM ion width source [Entitic data volume] by Automated count Leukocyte 4.8 - K/MM3 High No Sep 2 s 10.8 alert 2016 2:15 [#/volume on in PM ] in source Blood data Differential panel, method unspecified - Observa Value Referen Units Interpr Notes Date tion ce etation Range LYMPH 5 10 - 50 % Low No Sep 2 2016 tion in 2:15 PM source data Monocytes 2 - 9 % Normal No Sep 2 2016 2:15 leukocyte on in PM s in source Blood by data Automated count Platele NORMAL No No No No Sep 2 ts informa informa informa informa 2016 [Presen tion in tion in tion in tion in 2:15 PM ce] in source source source source Blood data data data data by Light microsc opy Neutrophi 42 - 76 % High No Sep 2 ls 2016 2:15 [#/volume on in PM ] in source Blood by data Automated count Cells No #CELLS No No Sep 2 Counted informati informati informati 2016 2:15 Total [#] on in on in on in PM in Blood source source source data data data Basic metabolic panel in Blood Observa Value Referen Units Interpr Notes Date tion ce etation Range Urea 7 - 18 mg/dL No No Nov 2 nitrogen informati informati 2016 2:15 [Mass/vol on in on in PM ume] in source source Serum or data data Plasma Calcium 8.5 - mg/dL Normal No Sep 2 [Mass/vol 10.1 2016 2:15 ume] in on in PM Serum or source Plasma data Chloride 98 - 107 mmoL/L Normal No Sep 2 [Moles/vo informati 2016 2:15 lume] in on in PM Serum or source Plasma data Carbon 21.0 - mmoL/L Normal No Sep 2 dioxide, 32.0 inform2016 2:15 total on in PM [Moles/vo source lume] in data Serum or Plasma Creatinin 0.70 - mg/dL Normal No Sep 2 e 1.30 informati 2016 2:15 [Mass/vol on in PM ume] in source Serum or data Plasma Creatinin 50 - 200 ML/MIN Normal No Sep 2 e renal informati 2016 2:15 clearance on in PM source predicted data by Cockcroft -Gault formula Estimated >60 ML/MIN No REFERENCE Sep 2 informati RANGE: 2017 2:15 glomerula on in >60 PM r source ML/MIN/1. filtratio data 73 SQUARE n rate METERSIf (GF this patient is -A merican, then multiply theresult by 1.210. Glucose 74 - 106 mg/dL High No Sep 2 [Mass/vol ati 2016 2:15 ume] in on in PM Serum or source Plasma data Potassium 3.5 - 5.1 mmoL/L Low No Sep 2 2016 2:15 [Moles/vo on in PM lume] in source Serum or data Plasma Sodium 136 - 145 mmoL/L Normal No Sep 2 [Moles/vo informati 2016 2:15 lume] in on in PM Serum or source Plasma data Lipase [Enzymatic activity/volume] in Serum or Plasma Observa Value Referen Units Interpr Notes Date tion ce etation Range Lipase 73 - 393 U/L Normal No Sep 2 [Enzymati informati 2016 2:15 c on in PM activity/ source volume] data in Serum or Plasma Lactate [Moles/volume] in Blood Observa Value Referen Units Interpr Notes Date tion ce etation Range Lactate 0.4 - 2.0 mmol/L Normal No Sep 2 [Moles/vo informati 2016 lume] in on in 12:08 AM Blood source data CBC W Auto Differential panel in Blood Observa Value Referen Units Interpr Notes Date tion ce etation Range Basophils 0 - 0.2 K/MM3 Normal No Sep 2 2016 [#/volume on in ] in source Blood by data Automated count Basophils 0.1 - 2.0 % Normal No Sep 03 inform2016 leukocyte on in s in source Blood by data Automated count Eosinophi 0.0 - 0.4 K/mm3 High No Sep 2 ls inform2016 [#/volume on in ] in source Blood by data Automated count Eosinophi 0.1 - % Normal No Sep 2 ls/100 12.0 inform2016 leukocyte on in s in source Blood by data Automated count Granulocy 1.3 - 8.0 K/mm3 High No Sep 2 rosalia 2016 [#/volume on in ] in source Blood by data Automated count Granulocy 37.0 - % High No Sep 2 rosalia/100 80.0 informati 2016 leukocyte on in s in source Blood by data Automated count Hematocri 42.0 - % Low No Sep 2 t [Volume 52.0 ati 2016 on in Fraction] source of Blood data Hemoglobi 14.1 - g/dL Low No Sep 2 n 18.0 inform2016 [Mass/vol on in ume] in source Blood data Lymphocyt 0.7 - 4.5 K/mm3 Normal No Sep 2 es 2016 [#/volume on in ] in source Unspecifi data ed specimen by Automated count Lymphocyt 10 - 50 % Low No Sep 2 es 2016 [#/volume on in ] in [...] Erythrocy 82.2 - fl Normal No Sep 2 te mean 97.8 2016 corpuscul on in ar volume source [Entitic data volume] by Automated count Monocytes 0.1 - 1.0 K/mm3 Normal No Sep 2 2016 [#/volume on in ] in source Blood by data Automated count Monocytes 1.7 - 9.3 % Normal No Sep 03 inform2016 leukocyte on in s in source Blood by data Automated count Platelet 7.4 - fl Normal No Sep 2 mean 10.4 2016 volume on in [Entitic source volume] data in Blood by Automated count Platelets 142 - 424 K/mm3 No No Sep 2 informati informati 2016 [#/volume on in on in ] in source source Blood data data Erythrocy 4.6 - 6.2 M/mm3 Low No Sep 03 rosalia informati 2016 [#/volume on in ] in source Amniotic data fluid Erythrocy 11.5 - % Normal No Sep 03 te 17.5 informati 2016 distribut on in ion width source [Entitic data volume] by Automated count Leukocyte 4.8 - K/MM3 Normal No Sep 03 s 10.8 informati 2016 [#/volume on in ] in source [...] Creatinin 0.70 - mg/dL Normal No Aug 25 e 1.30 informati 2016 7:45 [Mass/vol on in AM ume] in source Serum or data Plasma Estimated >60 ML/MIN No REFERENCE Aug 25 informati RANGE: 2016 7:45 glomerula on in [...] Serum or Plasma RESU LTS CALLED TO: [email or web address] 08/26/17 0803 Rodney AlonzoTonebeverley e Sodium 136 - 145 mmoL/L Normal [...] % Normal No Aug 26 /100 informati 2017 7:45 leukocyte on in AM s in [...] Normal No Aug 26 te mean 97.8 inform2016 7:45 corpuscul on in AM ar volume source [Entitic data volume] by Automated count Monocytes 0.1 - 1.0 K/mm3 Normal No Aug 26 inform2016 7:45 [#/volume on in AM ] in source Blood by data Automated count Monocytes 1.7 - 9.3 % Normal No Aug 26 informati 2016 [...] 0.4 - 2.0 mmol/L Normal No Jul 15 [Moles/vo inform2016 2:53 lume] in on in PM Blood source data CBC W Auto Differential panel in Blood Observa Value Referen Units Interpr Notes Date tion ce etation Range Basophils 0 - 0.2 K/MM3 Normal No Jul 13 2016 2:53 [#/volume on in PM ] in source Blood by data Automated count Basophils 0.1 - 2.0 % Normal No Jul 15 informati 2016 2:53 leukocyte on in PM s in source Blood by data Automated count Eosinophi 0.0 - 0.4 K/mm3 Normal No Jul 15 ls informati 2016 2:53 [#/volume on in PM ] in source Blood by data Automated count Eosinophi 0.1 - % Normal No Sep 13 ls/100 12.0 informati 2016 2:53 leukocyte on in PM s in source Blood by data Automated count Granulocy 1.3 - 8.0 K/mm3 Normal No Sep 13 rosalia informati 2016 [...] No Sep 13 n 18.0 informati informati 2016 2:53 [Mass/vol on in on in PM [...] No Sep 13 te mean 97.8 informati 2017 2:53 corpuscul on in PM ar volume source [Entitic data volume] by Automated count Monocytes 0.1 - 1.0 K/mm3 Normal No Sep 13 inform2016 2:53 [#/volume on in PM ] in source Blood by data Automated count Monocytes 1.7 - 9.3 % Normal No Sep 13 /100 informati 2016 2:53 leukocyte on in PM s in source Blood by data Automated count Platelet 7.4 - fl Normal No Sep 13 mean 10.4 informati 2016 2:53 volume on in PM [Entitic source volume] data in Blood by Automated count Platelets 142 - 424 K/mm3 Normal No Sep 13 informati 2016 2:53 [...] K/MM3 Normal No Sep 13 s 10.8 informati 2016 2:53 [#/volume [...] Interpr Notes Date ti ce etation Range Thyroxine 5.93 - ug/dl Low No Jun 15 (T4) 13.13 informati 2016 2:00 free on in PM index in source Serum or data Plasma Triiodoth 31 - 39 % Normal No Jun 14 yronine informati 2016 2:00 (T3) on in PM resin [...] % Normal No Jun 14 rosalia/100 80.0 2016 2:00 leukocyte on in [...] pg Normal No Jun 15 te mean 2016 2:00 corpuscul on in [...] 142 - 424 K/mm3 Normal No Jun 152016 2:00 [#/volume [...] Value Referen Units Interpr Notes Date tion etation Range Troponin 0.00 - ng/mL Normal No Jun 07 I.cardiac 0.06 2016 3:01 on in AM [...] U/L Normal No Jun 06 [Enzymati informati 2017 c on in 11:59 PM activity/ source volume] data in Serum or Plasma Cardiac enzymes Observa Value Referen Units Interpr Notes Date tion ce etation Range Creatine 0 - 4.0 U/L Normal No Jun 06 kinase.MB informati 2017 /Creatine on in 11:59 PM source kinase.to [...] U/L Normal No Jun 06 phosphata informati 2017 se on in 11:59 PM [Enzymati source [...] Normal No Jun 06 dioxide, 32.0 informati 2017 total on in 11:59 PM [Moles/vo source lume] in data Serum or Plasma Creatinin 0.70 - mg/dL Normal No Jun 06 e 1.30 informati 2017 [Mass/vol on in 11:59 PM ume] in source Serum or data Plasma Creatinin 50 - 200 ML/MIN Normal No Jun 06 e renal informati 2017 clearance on in 11:59 PM source predicted [...] - 5.1 mmoL/L Low No Jun 06 inform2016 [Moles/vo on in 11:59 PM lume] in source Serum or data Plasma Sodium 136 - 145 mmoL/L Normal No Jun 06 [Moles/vo informati 2016 lume] in on in 11:59 PM Serum or source Plasma data Aspartate 15 - 37 U/L Normal No Jun 06 inform2016 aminotran on in 11:59 PM sferase source [Enzymati data c activity/ volume] in Serum or Plasma Alanine 12 - 78 U/L Normal No Jun 06 aminotran informati 2016 sferase on in 11:59 PM [Enzymati [...] 0 - 0.2 K/MM3 Normal No Jun 06 informati 2016 [#/volume on in 11:59 PM ] in source Blood by data Automated count Basophils 0.1 - 2.0 % Normal No Jun 06 /100 inform2016 leukocyte on in 11:59 PM s [...] 6.2 M/mm3 Low No Jun 06 rosalia inform2016 [#/volume on [...] 0.2 - 1.0 mg/dL High No Apr 17 .total informati 2017 6:18 [Mass/vol on in AM ume] in source Serum or data Plasma Urea 7 - 18 mg/dL High No Apr 17 nitrogen informati 2017 6:18 [Mass/vol on in [...] High No Apr 18 e 1.30 informati 2016 6:18 [Mass/vol on in AM ume] in source Serum or data Plasma Creatinin 50 - 200 ML/MIN Low No Apr 17 e renal informati 2017 6:18 clearance on in AM source predicted data by Cockcroft -Gault formula Estimated >60 ML/MIN No REFERENCE Apr 17 informati RANGE: 2017 6:18 glomerula on in >60 AM r source ML/MIN/1. filtratio data 73 SQUARE n rate METERSIf (GF this patient is -A merican, then multiply theresult by 1.210. Globulin 1.3 - 3.2 gm/dL High No Apr 17 [Mass/vol informati 2017 6:18 ume] in on in AM Serum source data Glucose 74 - 106 mg/dL High No Apr 17 [Mass/vol informati 2017 6:18 ume] in on in AM Serum or source Plasma data Potassium 3.5 - 5.1 mmoL/L Low alert Apr 18 2016 6:18 [Moles/vo CRITICAL AM lume] in RESULTS Serum or Plasma RESU LTS CALLED TO: [facility] 04/18/17 0716 Ochoa,[place] nda Sodium 136 - 145 mmoL/L Normal No Apr 17 [Moles/vo informati 2016 6:18 lume] in on in AM Serum or source Plasma data Aspartate 15 - 37 U/L High No Apr 18 informati 2016 6:18 aminotran on in AM sferase source [Enzymati data c activity/ volume] in Serum or Plasma Alanine 12 - 78 U/L Normal No Apr 17 aminotran informati 2016 6:18 sferase on in [...] - 0.2 K/MM3 Normal No Apr 18 inform2016 6:15 [#/volume on in AM ] in source Blood by data Automated count Basophils 0.1 - 2.0 % Normal No Apr 17 / informati 2016 6:15 leukocyte on in AM s in source Blood by data Automated count Eosinophi 0.0 - 0.4 K/mm3 Normal No Apr 18 ls informati 2016 6:15 [#/volume on in AM ] in source Blood by data Automated count Eosinophi 0.1 - % Normal No Apr 18 ls/100 12.0 informati 2016 6:15 leukocyte on in AM s in source Blood by data Automated count Granulocy 1.3 - 8.0 K/mm3 High No Apr 18 rosalia informati 2016 6:15 [#/volume on in AM ] in source Blood by data Automated count Granulocy 37.0 - % High No Apr 18 rosalia/100 80.0 informati 2016 6:15 leukocyte on in AM s in source Blood by data Automated count Hematocri 42.0 - % Normal No Apr 18 t [Volume 52.0 informati 2016 6:15 on in AM Fraction] source of Blood data Hemoglobi 14.1 - g/dL Normal No Apr 18 n 18.0 informati 2016 6:15 [Mass/vol on in AM ume] in source Blood data Lymphocyt 0.7 - 4.5 K/mm3 Low No Apr 17 es informati 2016 6:15 [#/volume on in AM ] in source Unspecifi data ed specimen by Automated count Lymphocyt 10 - 50 % Low No Apr 17 es informati 2017 6:15 [#/volume on in AM ] in source Unspecifi data ed specimen by Automated count Erythrocy 27 - 31.2 pg Normal No Apr 17 te mean inform2016 6:15 corpuscul on in AM ar source hemoglobi data n [Entitic mass] Erythrocy 31.8 - g/dl Normal No Apr 17 te mean 35.4 informati 2017 6:15 corpuscul on in AM ar source hemoglobi data n concentra tion [Mass/vol ume] by Automated count Erythrocy 82.2 - fl Normal No Apr 18 te mean 97.8 informati 2017 6:15 corpuscul on in AM ar volume source [Entitic data volume] by Automated count Monocytes 0.1 - 1.0 K/mm3 Normal No Apr 17 informati 2017 6:15 [#/volume on in AM [...] - 424 K/mm3 Normal No Apr 17 informati 2017 6:15 [#/volume on in AM ] in source Blood data Erythrocy 4.6 - 6.2 M/mm3 Normal No Apr 17 rosalia informati 2017 6:15 [#/volume on in AM ] in source Amniotic data fluid Erythrocy 11.5 - % Normal No Apr 18 te 17.5 informati 2016 6:15 distribut on [...] Hemoglobi 14.1 - g/dL Normal No Apr 17 n 18.0 informati 2016 [Mass/vol on in 11:33 AM ume] in source Blood data Lymphocyt 0.7 - 4.5 K/mm3 Normal No Apr 17 es inform2016 [#/volume on in 11:33 AM ] in source Unspecifi data ed specimen by Automated count Lymphocyt 10 - 50 % Low No Apr 17 es inform2016 [#/volume on in 11:33 AM ] in source Unspecifi data ed specimen by Automated count Erythrocy 27 - 31.2 pg High No Apr 17 te mean inform2016 corpuscul on in 11:33 AM ar source hemoglobi data n [Entitic mass] Erythrocy 31.8 - g/dl Normal No Apr 17 te mean 35.4 inform2016 corpuscul on in 11:33 AM ar source hemoglobi data n concentra tion [Mass/vol ume] by Automated count Erythrocy 82.2 - fL Normal No Apr 17 te mean 97.8 2016 corpuscul on in 11:33 AM ar volume source [Entitic data volume] by Automated count Monocytes 0.1 - 1.0 K/mm3 Normal No Apr 16 inform2016 [#/volume on in 11:33 AM ] in source Blood by data Automated count Monocytes 1.7 - 9.3 % Normal No Apr 16 /100 2016 leukocyte on in 11:33 AM s in source Blood by data Automated count Platelets 142 - 424 K/mm3 Normal No Apr 16 inform2016 [#/volume on in 11:33 AM ] in source Blood data Erythrocy 4.6 - 6.2 M/mm3 Normal No Apr 16 rosalia informati 2016 [#/volume on in 11:33 AM ] in source Amniotic data fluid Erythrocy 11.5 - % Normal No Apr 17 te 17.5 informati 2016 distribut on in 11:33 AM ion width source [Entitic data volume] by Automated count Leukocyte 4.8 - K/mm3 High No Apr 16 s 10.8 informati 2016 [#/volume on in 11:33 AM ] in source Blood data Differential panel, method unspecified - Observa Value Referen Units Interpr Notes Date tion ce etation Range LYMPH 10 10 - 50 % Normal No Apr 17 informa 2016 tion in 11:33 source AM data Monocytes 2 - 9 % Normal No Apr 16 /100 2016 leukocyte on in 11:33 AM s in source Blood by data Automated count Platele NORMAL No No No No Apr 16 ts informa informa informa informa 2016 [Presen tion in tion in tion in tion in 11:33 ce] in source source source source AM Blood data data data data by Light microsc opy Neutrophi 42 - 76 % High No Apr 17 ls informati 2016 [#/volume on in 11:33 AM ] in source Blood by data Automated count Cells No #CELLS No No Apr 17 Counted informati informati informati 2016 Total [#] on in on in on in 11:33 AM in Blood source source source data data data INR in Blood by Coagulation assay Observa Value Referen Units Interpr Notes ti ce etation Range INR in 0.9 [...] poor 04/17 plasma by 1204 Rodney Alonzo Coagulmanuel oey on assay Meka Basic metabolic panel in Blood Observa Value Referen Units Interpr Notes Date ti ce etation Range Urea 7 - 18 mg/dL High No Apr 17 nitrogen inform2016 [Mass/vol on in 11:33 AM ume] [...] mg/dL High No Apr 17 [Mass/vol informati 2016 ume] in on in 11:33 AM Serum or source Plasma data Potassium 3.5 - 5.1 mmoL/L Normal No Apr 17 inform2016 [Moles/vo on in 11:33 AM lume] in source Serum or data Plasma Sodium 136 - 145 mmoL/L Normal No Apr 17 [Moles/vo informati 2016 lume] in on in 11:33 AM Serum or source Plasma data
--- OUTSIDE RECORDS SUMMARY | 2017-10-02 16:03 | External Medical Summary Rpt ---
[...] Serum or Plasma RESU LTS CALLED TO: [facility] 04/18/17 0716 Ochoa,[place] nda Sodium 136 - 145 mmoL/L Normal [...]
[2017-10-02 17:16] VITALS: BP 123/56
== END 2017-10-02 17:17 | disposition home or self-care (01) ==
LOC: ER 14:34
PROVIDERS: Emergency Medicine
DX: J44.1 Chronic obstructive pulmonary disease with (acute) exacerbation (principal); I48.2 Chronic atrial fibrillation; I10 Essential (primary) hypertension; E78.5 Hyperlipidemia, unspecified; F02.80 Dementia in other diseases classified elsewhere, unspecified severity, without behavioral disturbance, psychotic disturbance, mood disturbance, and anxiety